=== PATIENT | female | born 1965 | race African-American/Black ===

== ENCOUNTER 2017-04-16 18:45 | Observation (INO) | payer BC ==
[2017-04-16 19:10] LABS: Hematocrit 39.5 % (36.0-47.0); Mean Platelet Volume 7.5 fL (7.4-10.4); Red Blood Cell (RBC) Count 4.79 mill/uL (4.20-5.40); White Blood Cell (WBC) Count 4.8 thou/uL (4.8-10.8)
[2017-04-16 19:27] LABS: Hypochromia SLIGHT = 6-15 cells (100X) (0-5/hpf); Neutrophil 71 % (42-75)
[2017-04-16 19:33] LABS: ALT (SGPT) 17 U/L (8-55); AST (SGOT) 22 U/L (5-34); Alkaline Phosphatase 72 U/L (40-150); Anion Gap 11 mmol/L (10-20); BUN (Urea Nitrogen) 11 mg/dL (7.0-18.7); Calc. Creatinine Clearance 0 mL/min (70-130); Calcium 8.8 mg/dL (7.8-10.44); Carbon Dioxide 31 mmol/L (22-29); Chloride 102 mmol/L (98-107); Estimated GFR-MDRD Greater than 90; Globulin 3.8 g/dL (2.4-3.5); Protein, Total 7.7 g/dL (6.0-8.3)
[2017-04-16] MEDS ORDERED: Ondansetron HCl/PF 4 MG/2 ML Vial ONE (20:29)
[2017-04-16 21:22] LABS: Bilirubin Negative (Negative); Blood, Urine Negative (Negative); Glucose, Urine (Dipstick) Negative (Negative); Ketone, Urine Negative (Negative); Nitrite Negative (Negative); Protein, Urine (Dipstick) Negative (Neg-Trace)
[2017-04-16 21:23] LABS: Bacteria/HPF None Seen HPF (None Seen); Hyaline Casts/LPF 0-3 HYALINE CAST LPF (0-3 Hyaline); Squamous Epithelial 0-3 HPF (0-3); WBC/HPF 0-3 HPF (0-3)
[2017-04-16] MEDS ORDERED: Lidocaine 1% PF 5 ML VIAL ONE (23:45)
--- NOTE | 2017-04-16 23:56 | ULT ---
LEFT LOWER EXTREMITY VENOUS DOPPLER WITH SPECTRAL ANALYSIS AND COLOR FLOW EVALUATION: 04/16/17 HISTORY: Left lower extremity pain. History of rheumatoid arthritis and lupus. Patient's left knee is warm to touch, painful and swollen. FINDINGS: Easley scale, color flow, doppler evaluation, and spectral analysis of the left lower extremity venous structures is performed with 2D imaging. The left lower extremity common femoral, superficial femoral, popliteal, posterior tibial, most prox imal greater saphenous and profunda femoral veins are imaged. There is normal lumen compressibility, flow, and augmentation in the visualized deep venous structur es left lower extremity. There is a small curvilinear anechoic collection seen posterior to the knee measuring 3.4 cm x 1 cm x 2.7 cm. No flow is seen within this structure on color flow evaluation. This was not present on e prior study of 09/16/16. IMPRESSION: 1. No evidence of a DVT involving the visualized deep venous structures of the left lower extre mity. 2. Probable small Saeed's cyst posterior to the left knee. POS: [facility]
[2017-04-17] MEDS ORDERED: cefTRIAXone\\ROCEPHIN 2 GM VIAL ONE (00:43)
[2017-04-17 00:50] LABS: BF Reference Range Comment Note:
[2017-04-17 01:11] LABS: BF Color Yellow
[2017-04-17 01:12] LABS: RBC Count-Automated 22000 /cumm
[2017-04-17] MEDS ORDERED: Vancomycin HCl 1.5 GM in Sodium Chloride 0.9% 250 ML 300 ML IVPB SCH (01:45)
[2017-04-17 02:41] LABS: Number Cells Counted-Fluids 100
[2017-04-17] MEDS ORDERED: Ondansetron ODT 4 MG TAB SL PRN (03:40)
[2017-04-17] MEDS ORDERED: Ondansetron HCl/PF 4 MG/2 ML Vial IVP PRN (03:40)
[2017-04-17] MEDS ORDERED: D5 1/2 NS w/20 mEq KCL 1,000 ML IV SCH (03:45)
[2017-04-17 06:02] VITALS: BMI 24.2
[2017-04-17] MEDS ORDERED: FLU VACC QS2017-18 36 mo. & older 0.5 ML SYRINGE IM ONE (09:00)
[2017-04-17] MEDS ORDERED: Enoxaparin Sodium 40 MG/0.4 ML SYRINGE SC SCH ×2 (09:19→09:30)
[2017-04-17] MEDS ORDERED: Famotidine 20 MG TAB PO SCH ×2 (09:19→09:30)
[2017-04-17] MEDS ORDERED: LOSARTAN POTASSIUM 25 MG PO SCH (09:19)
[2017-04-17] MEDS ORDERED: Mag-Al 1200 mg/1200 mg/30 ML UDCUP PO PRN (09:19)
[2017-04-17] MEDS ORDERED: predniSONE 20 MG TAB PO SCH (09:19)
[2017-04-17] MEDS ORDERED: Dextrose 50% Abboject 50 ML SYRINGE SLOW IVP PRN (09:19)
[2017-04-17] MEDS ORDERED: Vancomycin HCl 1 GM in Premix Bag 1 BAG IVPB SCH ×3 (09:19→21:00)
[2017-04-17] MEDS ORDERED: HYDROcodone/Acetaminophen 5/325 mg Tablet PO PRN (09:19)
[2017-04-17] MEDS ORDERED: Hydroxychloroquine Sulfate 200 MG TAB PO SCH ×2 (09:19→09:30)
[2017-04-17] MEDS ORDERED: HumaLOG 300 UNITS/3 ML VIAL SC PRN ×2 (09:19)
[2017-04-17] MEDS ORDERED: Ondansetron ODT 4 MG TAB PO PRN (09:19)
[2017-04-17] MEDS ORDERED: Acetaminophen 325 MG TAB PO PRN (09:19)
[2017-04-17] MEDS ORDERED: Dextrose 5% in Water 1,000 ML IV PRN (09:19)
[2017-04-17] MEDS ORDERED: Fleet Enema 133 ML BOT PR PRN (09:19)
[2017-04-17] MEDS ORDERED: Losartan Potassium 25 MG TAB PO SCH (09:30)
[2017-04-17] MEDS ORDERED: predniSONE 5 MG TAB PO SCH (09:30)
[2017-04-17] MEDS: Piperacillin/Tazobactam 3.375 GM in Sodium Chloride 0.9% 100 ML IVPB SCH ×2 (11:35→18:23)
--- NOTE | 2017-04-17 11:38 | HP ---
PRIMARY CARE PHYSICIAN: Dr. Lynnette Cooper CHIEF COMPLAINT: Left knee pain. HISTORY OF PRESENT ILLNESS: Ms. Streeter is a pleasant 51-year-old female that has a history of hyperte nsion as well as systemic lupus. She also has had a left total knee replacement done in June. She says that she has always had a little bit of pain off and on since her total knee replacement, b ut day before yesterday it started hurting extremely bad. She said suddenly she could barely walk. She also had a high temperature both the day before yesterday and yesterday, she says it was high a s 103. She also says that the pain went from her knee all the way down to her foot, she says it was swollen and hot. She was also feeling a bit nauseated. Because of the high fever as well as the p ain, she came to the emergency room for evaluation. Due to her immunosuppression from her lupus she is being admitted for concern for a septic knee joint. The patient denies any trauma to the knee, but again says she recently had a total knee replacement performed and she says it has never hurt to this degree. She does say that she had seen Dr. Desouza a few months ago where he sindi some fluid off of the knee, but says at that time, there was no infection. REVIEW OF SYSTEMS: CONSTITUTIONAL: She has had subjective fevers, no chills, no night sweats, no weight loss. HEENT: She denies any headaches, no dizziness, no visual changes, no sore throat, rhinorrhea, neck pain, no adenopathy. PULMONARY: No hemoptysis, no cough, no wheezing. CARDIOVASCULAR: She denies any chest pain, no shortness of breath, no PND, no orthopnea. GASTROINTESTINAL: No abdominal pain. She has had some nausea, but no vomiting, no change in bowels . GENITOURINARY: No urinary frequency, hematuria, no hesitancy. NEUROLOGIC: No focal weakness, numbness, no seizures. PSYCHIATRIC: No symptoms of anxiety or depression. SKIN AND INTEGUMENT: No skin changes. No rash. 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 She h as a chronic microcytic anemia, hypertension, gastroparesis, chronic low back pain, anxiety, depress ion as well as steroid-induced diabetes mellitus. PAST SURGICAL HISTORY: She has had a tonsillectomy, hysterectomy, tooth extraction, bilateral shoul errol replacements as well as bilateral hip replacement surgeries, left total knee replacement, laparo scopic salpingo-oophorectomy on the right. Cardiac catheterization and a colonoscopy. ALLERGIES: No known drug allergies. FAMILY HISTORY: Significant for hypertension. SOCIAL HISTORY: She is . She has 3 children. She is a nonsmoker, nondrinker. CURRENT MEDICATIONS: Amlodipine 5 mg daily, BuSpar 10 mg twice a day, prednisone 5 mg daily, [place] 10/325 mg 1-2 tablets q.8 h. as needed, pantoprazole 40 mg daily, losartan 25 mg daily, ibuprofen 80 0 mg twice a day as needed, hydroxychloroquine 200 mg twice a day, sertraline 100 mg daily. PHYSICAL EXAMINATION: GENERAL: She is alert and oriented. She appears to be in no acute distress. VITAL SIGNS: Blood pressure was 136/70, heart rate 85, respiratory rate of 18, temperature is 99.9. HEENT: Her pupils are equal, round, and reactive. Extraocular muscles are intact. Sclerae are ani cteric. Throat no erythema, no exudates. NECK: No adenopathy, no bruits. LUNGS: Clear. There is no wheezing, no rales. CARDIOVASCULAR: She has a normal S1 and S2. I did not appreciate an S3 or S4. No murmurs, clicks or rubs. ABDOMEN: Soft, it is nontender, nondistended. Positive for bowel sounds. No rebound, no guarding. EXTREMITIES: She has got some significant swelling or an effusion in the left knee. It is positive for tubal and mildly warm, but there is no erythema. She has got 1+ edema in the lower extr emity. NEUROLOGICALLY: The exam is nonfocal. LABORATORY DATA: White blood cell count 4.8, hemoglobin 12.1, hematocrit is 39.5, platelet count 34 8. Sodium 140, potassium 3.6, chloride is 102, CO2 was 31, BUN of 11, creatinine 0.71, glucose is 8 6. Urinalysis was essentially negative. From the fluid from the knee, the color was yellow and haz y. There was 11,300 white blood cell count, 220,000 RBCs, neutrophils 76%. ASSESSMENT AND PLAN: 1. This is a 51-year-old female that presents with a sudden onset of severe pain in the right knee. There is some concern for septic arthritis. She does have significant white cells in her synovial fluid, but no mention of any bacteria. This could either be from infection or from the lupus. She was admitted and placed on IV antibiotics until the final culture results can be obtained. We will also consult Orthopedic Surgery for their recommendations as well. Should it be determined that dale frances in fact has a septic joint, then ID consultation would be ideal to help determine the antibiotic a nd length of treatment. 2. Given her history of steroid-induced diabetes, we will place her on a sliding scale insulin. 3. For systemic lupus we will continue her usual home medications.
[2017-04-17] MEDS: HYDROcodone/Acetaminophen 10/325 mg Tablet PO PRN (12:34)
[2017-04-17] MEDS: Vancomycin HCl 1 GM in Premix Bag 1 BAG IVPB SCH (12:35)
[2017-04-17] MEDS: Ondansetron HCl/PF 4 MG/2 ML Vial IVP PRN (13:06)
[2017-04-17] MEDS: Hydroxychloroquine Sulfate 200 MG TAB PO SCH (20:27)
[2017-04-17] MEDS: Famotidine 20 MG TAB PO SCH (20:27)
[2017-04-18] MEDS: Piperacillin/Tazobactam 3.375 GM in Sodium Chloride 0.9% 100 ML IVPB SCH ×5 (00:10→18:09)
[2017-04-18] MEDS: Ondansetron HCl/PF 4 MG/2 ML Vial IVP PRN (00:15)
[2017-04-18] MEDS: Vancomycin HCl 1 GM in Premix Bag 1 BAG IVPB SCH ×2 (02:25→14:27)
[2017-04-18] MEDS: HYDROcodone/Acetaminophen 10/325 mg Tablet PO PRN ×3 (02:29→17:09)
[2017-04-18 05:52] LABS: Anion Gap 12 mmol/L (10-20); BUN (Urea Nitrogen) 9 mg/dL (7.0-18.7); Calc. Creatinine Clearance 110 mL/min (70-130); Calcium 8.7 mg/dL (7.8-10.44); Carbon Dioxide 26 mmol/L (22-29); Chloride 105 mmol/L (98-107); Estimated GFR-MDRD Greater than 90
[2017-04-18 06:26] LABS: Band 1 % (5-11); Hematocrit 35.1 % (36.0-47.0); Mean Platelet Volume 8.6 fL (7.4-10.4); Neutrophil 56 % (42-75); Red Blood Cell (RBC) Count 4.25 mill/uL (4.20-5.40); White Blood Cell (WBC) Count 3.2 thou/uL (4.8-10.8)
--- NOTE | 2017-04-18 07:43 | PDOC.PN ---
- Subjective Encounter Start Date: 04/18/17 Encounter Start Time: 07:41 Ms. Streeter says the pain in her knee is a little better. She had some nausea last night. otherwise ok. - Objective Resuscitation Status: Resuscitation Status FULL:Full Resuscitation MAR Reviewed: Yes Vital Signs & Weight: Vital Signs (12 hours) Temp Pulse Resp BP Pulse Ox 04/18/17 04:00 97.5 F L 52 L 16 130/71 98 04/18/17 00:00 97.9 F 66 18 120/78 100 04/17/17 20:20 98.6 F 80 20 04/17/17 20:00 98.6 F 80 20 115/75 97 Weight Weight 164 lb 3.2 oz I&O: 04/17/17 04/18/17 04/19/17 06:59 06:59 06:59 Intake Total 200 1 Balance 200 1 Result Diagrams: 04/18/17 04:23 04/18/17 04:23 Additional Labs: Accuchecks 04/18/17 04/17/17 04/17/17 06:25 21:14 15:31 POC Glucose 87 116 H 96 04/17/17 10:54 POC Glucose 77 Phys Exam - Physical Examination HEENT: PERRLA Respiratory: no wheezing, no rales, no rhonchi, clear to auscultation bilateral Cardiovascular: RRR, no significant murmur, no rub Gastrointestinal: soft, non-tender, positive bowel sounds + mild effusion in left kness, mild warmth, Neurological: non-focal Dx/Plan (1) Cellulitis of left knee Code(s): L03.116 - CELLULITIS OF LEFT LOWER LIMB Status: Acute (2) Anxiety and depression Code(s): F41.9 - ANXIETY DISORDER, UNSPECIFIED; F32.9 - MAJOR DEPRESSIVE DISORDER, SINGLE EPISODE, UNSPECIFIED Status: Chronic (3) Gastroparesis Code(s): K31.84 - GASTROPARESIS Status: Chronic (4) Hypertension Code(s): I10 - ESSENTIAL (PRIMARY) HYPERTENSION Status: Chronic (5) Systemic lupus erythematosus Code(s): M32.9 - SYSTEMIC LUPUS ERYTHEMATOSUS, UNSPECIFIED Status: Chronic - Plan * Knee Effusion- knee clinically appears much improved, there is not much redness, and swelling has receded. Cultures are negative so far. * Continue Antibiotics , and await opinion from Orthopedics * HTN - blood pressure is stable * Coag Neg Staph in blood culture is is contaminant * SLE- stable.
[2017-04-18] MEDS: Losartan Potassium 25 MG TAB PO SCH (08:34)
[2017-04-18] MEDS: Famotidine 20 MG TAB PO SCH ×2 (08:35→20:36)
[2017-04-18] MEDS: Enoxaparin Sodium 40 MG/0.4 ML SYRINGE SC SCH (08:35)
[2017-04-18] MEDS: predniSONE 5 MG TAB PO SCH (08:35)
[2017-04-18] MEDS: Hydroxychloroquine Sulfate 200 MG TAB PO SCH ×2 (08:35→20:36)
[2017-04-18] MEDS ORDERED: fentaNYL 75 mcg/hour Patch TD SCH (16:00)
--- NOTE | 2017-04-18 17:10 | CON ---
DATE OF CONSULTATION: 04/18/2017 CHIEF COMPLAINT: Left knee pain. HISTORY OF PRESENT ILLNESS: This is a 51-year-old female admitted 2 days ago for increasing discomf ort in her left knee and lower extremity. She denies any specific injury or change in activity, has had left total knee arthroplasty for avascular necrosis due to her chronic lupus. She has been hav ing intermittent problems with the left knee. She had an aspiration back in February of this year whi ch was negative for infection or abnormal fluid. She has been relatively slow with therapy on the k nee. She has also been having discomfort extending into the foot. She feels it is more consistent with neuropathy symptoms. Not related activity or ambulation. She does report some elevated temper atures prior to this admission. PAST MEDICAL HISTORY: Documented. She has had multiple areas of avascular necrosis and joint repla cement surgery on hips, knees, and shoulders. She has chronic anemia, hypertension, and lupus along with steroid-induced diabetes. PAST SURGICAL HISTORY: Surgical history is documented. ALLERGIES: She has no known allergies. MEDICATIONS: Listed, she has recently started on arthritis medication by her carbide tool maker, Dr. Christiano baca, she is also on prednisone daily. PHYSICAL EXAMINATION EXTREMITIES: Left lower extremity, she has minimal swelling. There is minimal effusion. Incision is well healed. Mild warmth. She has active flexion to 110 degrees. She has full extension, good stability, alignment, and normal tracking. She has diffuse tenderness around the anterior knee. SKIN: Her skin is otherwise clear. NEUROLOGIC: Intact. VASCULAR: Intact. LABORATORY AND X-RAY FINDINGS: Radiographs not obtained. Laboratory shows fairly benign looking kn ee aspirated with 11,000 white cells, 220,000 red with low normal WBC and normal platelets, sediment ation rate was not done. C-reactive protein is elevated. IMPRESSION AND PLAN: The patient is well known to me with persistent left knee pain, intermittent e pisodes of increasing discomfort without evidence of sepsis. This most recent admission with concer n about septic arthritis. The patient has chronic immunosuppression and may not have significant in flammatory markers; however, she has been afebrile and cultures are from the knee aspirate remain ne gative. We will allow her to mobilize as tolerated. We would await final results of her knee cultu re and if negative, we would discontinue IV antibiotic therapy. We will follow her outpatient in th e next 5-7 days for followup. She can mobilize as tolerated.
[2017-04-18] MEDS: Sulfameth/Trimethoprim DS 800-160mg TAB PO SCH (20:36)
[2017-04-18] MEDS: busPIRone HCl 10 MG TAB PO SCH (20:36)
[2017-04-18 21:00] LABS: Vancomycin, Trough 20.9 ug/mL
[2017-04-19] MEDS: Piperacillin/Tazobactam 3.375 GM in Sodium Chloride 0.9% 100 ML IVPB SCH ×3 (00:07→12:06)
[2017-04-19] MEDS: HYDROcodone/Acetaminophen 10/325 mg Tablet PO PRN (01:17)
[2017-04-19] MEDS: Vancomycin HCl 1 GM in Premix Bag 1 BAG IVPB SCH (01:17)
[2017-04-19] MEDS: predniSONE 5 MG TAB PO SCH (09:31)
[2017-04-19] MEDS: busPIRone HCl 10 MG TAB PO SCH (09:31)
[2017-04-19] MEDS: Losartan Potassium 25 MG TAB PO SCH (09:31)
[2017-04-19] MEDS: Hydroxychloroquine Sulfate 200 MG TAB PO SCH (09:31)
[2017-04-19] MEDS: Sulfameth/Trimethoprim DS 800-160mg TAB PO SCH (09:31)
[2017-04-19] MEDS: Famotidine 20 MG TAB PO SCH (09:32)
[2017-04-19] MEDS: Enoxaparin Sodium 40 MG/0.4 ML SYRINGE SC SCH (09:32)
--- NOTE | 2017-04-19 11:22 | PDOC.PN ---
- Subjective Encounter Start Date: 04/19/17 Encounter Start Time: 11:20 Ms. Streeter is overall feeling better. she says the pain in her knee is better, but it still hurts and radiates to her foot. - Objective Resuscitation Status: Resuscitation Status FULL:Full Resuscitation MAR Reviewed: Yes Vital Signs & Weight: Vital Signs (12 hours) Temp Pulse Resp BP Pulse Ox 04/19/17 07:40 98.5 F 64 18 113/71 98 04/19/17 03:13 98.1 F 61 12 115/73 97 Weight Weight 164 lb 3.2 oz I&O: 04/18/17 04/19/17 04/20/17 06:59 06:59 06:59 Intake Total 1 2700 Balance 1 2700 Result Diagrams: 04/18/17 04:23 04/18/17 04:23 Additional Labs: Accuchecks 04/19/17 04/18/17 05:20 15:31 POC Glucose 101 132 H Phys Exam - Physical Examination HEENT: PERRLA Respiratory: no wheezing, no rales, no rhonchi, clear to auscultation bilateral Cardiovascular: RRR, no significant murmur Gastrointestinal: soft, non-tender, positive bowel sounds + mild effusion in the left knee, no redness. minimal warmth Dx/Plan (1) Cellulitis of left knee Code(s): L03.116 - CELLULITIS OF LEFT LOWER LIMB Status: Acute (2) Anxiety and depression Code(s): F41.9 - ANXIETY DISORDER, UNSPECIFIED; F32.9 - MAJOR DEPRESSIVE DISORDER, SINGLE EPISODE, UNSPECIFIED Status: Chronic (3) Gastroparesis Code(s): K31.84 - GASTROPARESIS Status: Chronic (4) Hypertension Code(s): I10 - ESSENTIAL (PRIMARY) HYPERTENSION Status: Chronic (5) Systemic lupus erythematosus Code(s): M32.9 - SYSTEMIC LUPUS ERYTHEMATOSUS, UNSPECIFIED Status: Chronic - Plan * Knee pain and swelling- ? etiology- septic joint is unlikely * Her cultures are now negative X 48 hours * Stale for discharge home without antibiotics * Follow-up with Dr. Desouza in 5-7 days.
[2017-04-19] MEDS: Ondansetron HCl/PF 4 MG/2 ML Vial IVP PRN (12:13)
[2017-04-19 12:32] VITALS: BP 128/81; TEMP 98.4
--- NOTE | 2017-04-19 20:50 | DIS ---
PRIMARY CARE PHYSICIAN: Lynnette Cooper MD DATE OF ADMISSION: 04/17/2017 DATE OF DISCHARGE: 04/19/2017 DISCHARGE DISPOSITION: Home. PRIMARY DISCHARGE DIAGNOSES: 1. Left knee effusion, unknown etiology. 2. Systemic lupus erythematosus. 3. History of avascular necrosis of both shoulders and both hips. 4. Chronic microcytic anemia. 5. Hypertension. 6. Anxiety. 7. Steroid-induced diabetes mellitus. 8. Depression. DISCHARGE MEDICATIONS: These are the same as that on admission and include prednisone 5 mg daily, f entanyl 75 mg q.3 hours, BuSpar 10 mg twice a day, amlodipine 5 mg twice daily, Bactrim-DS 1 tablet on Thursday, Thursday, and Thursday, Zoloft 100 mg daily, promethazine 25 mg q.6 hours as needed, Diony nix 40 mg daily, Movantik 25 mg daily, Cozaar 25 mg daily, ibuprofen 800 mg twice a day, Plaquenil 2 00 mg q.12 hours and [place] 10/325 q.8 hours as needed. CODE STATUS: FULL CODE. ALLERGIES: No known drug allergies. HOSPITAL COURSE: Ms. Streeter is a pleasant 51-year-old female that presented to the emergency room com plaining of high fever as well as severe pain in her left knee. She has had problems with this left knee ever since she had a knee replacement surgery. She also had fevers off and on. She was instr ucted to come to the emergency room anytime she had an elevated temperature, which she did. Because of the swelling in knee, there was concern for possible septic joint. This was aspirated and the f luid was sent for Gram stain and culture. The Gram stain was negative and culture results were nega tive after 48 hours. She was also seen by Orthopedic Surgery, who felt that the knee clinically did not appear to be septic. The patient's temperature defervesced and she was symptomatically much im proved and as such she will be discharged home without any antibiotics and to continue her previous home medications. I told her to follow up with the testing that Dr. Herron has been doing with re gards to the fever and she may also need to see Dr. Muhammad as an outpatient with Infectious Disease, if she continues to have a temperature elevation off and on. She voiced understanding and as such i s being discharged home with follow up with Dr. Desouza in 5-7 days and also with Dr. Cooper in 1-2 [facility].
== END 2017-04-19 14:26 | disposition home or self-care (01) ==
LOC: ERS 18:45 → SURG A 04-17 03:28
PROVIDERS: ADMIT Family Medicine; ATTEND Family Medicine
DX: M25.462 Effusion, left knee (principal); M32.9 Systemic lupus erythematosus, unspecified; D64.9 Anemia, unspecified; M87.9 Osteonecrosis, unspecified; I10 Essential (primary) hypertension; F32.9 Major depressive disorder, single episode, unspecified; F41.9 Anxiety disorder, unspecified; E09.9 Drug or chemical induced diabetes mellitus without complications; Z96.643 Presence of artificial hip joint, bilateral; Z96.653 Presence of artificial knee joint, bilateral; Z96.612 Presence of left artificial shoulder joint; Z96.611 Presence of right artificial shoulder joint; Z79.899 Other long term (current) drug therapy
CPT/HCPCS: 20610; 36415; 36416; 80048; 80053; 80202; 81003; 81015; 82945; 84157; 85025; 85060; 85652; 86140; 87040; 87070; 87149; 87205; 89051; 89060; 96361; 96365; 96366; 96367; 96372; 96375; 96376; G0378; J0696; J1650; J2001; J2270; J2405; J2543; J3370; J7050

== ENCOUNTER 2017-06-24 16:04 | Emergency (ER) | payer BC ==
[2017-06-24] MEDS ORDERED: Ketorolac Tromethamine 60 MG/2 ML VIAL ONE (19:12)
== END 2017-06-24 19:49 | disposition home or self-care (01) ==
LOC: ERS 16:04
DX: J11.1 Influenza due to unidentified influenza virus with other respiratory manifestations (principal); I10 Essential (primary) hypertension; E11.9 Type 2 diabetes mellitus without complications; M10.9 Gout, unspecified; F32.9 Major depressive disorder, single episode, unspecified; Z79.899 Other long term (current) drug therapy
CPT/HCPCS: 96372; J1885

== ENCOUNTER 2017-06-29 11:33 | Emergency (ER) | payer BC ==
[2017-06-29 13:51] LABS: Bilirubin Negative (Negative); Blood, Urine Negative (Negative); Glucose, Urine (Dipstick) Negative (Negative); Ketone, Urine Negative (Negative); Nitrite Positive (Negative); Protein, Urine (Dipstick) Trace mg/dL (Neg-Trace)
[2017-06-29 13:53] LABS: Bacteria/HPF None Seen HPF (None Seen); Hyaline Casts/LPF 0-3 HYALINE CAST LPF (0-3 Hyaline); Squamous Epithelial None Seen HPF (0-3); WBC/HPF 0-3 HPF (0-3)
[2017-06-29 13:55] LABS: RBC/HPF None Seen HPF (0-3)
[2017-06-29 14:10] LABS: Hematocrit 39.6 % (36.0-47.0); Mean Platelet Volume 8.3 fL (7.4-10.4)
[2017-06-29 14:21] LABS: ALT (SGPT) 15 U/L (8-55); AST (SGOT) 25 U/L (5-34); Alkaline Phosphatase 55 U/L (40-150); Anion Gap 12 mmol/L (10-20); BUN (Urea Nitrogen) 8 mg/dL (7.0-18.7); Bilirubin, Total 0.6 mg/dL (0.2-1.2); Calc. Creatinine Clearance 0 mL/min (70-130); Calcium 9.6 mg/dL (7.8-10.44); Carbon Dioxide 27 mmol/L (22-29); Chloride 105 mmol/L (98-107); Estimated GFR-MDRD Greater than 90; Globulin 3.5 g/dL (2.4-3.5); Protein, Total 7.5 g/dL (6.0-8.3)
[2017-06-29 14:34] LABS: Band 2 % (5-11); Hypochromia SLIGHT = 6-15 cells (100X) (0-5/hpf); Neutrophil 80 % (42-75)
--- NOTE | 2017-06-29 15:46 | RAD ---
2 VIEWS CHEST: Date: 06/29/17 HISTORY: Rib pain. No trauma. FINDINGS: Comparison made to previous exam from 12/09/16. PA and lateral views of chest demonstrate bilateral shoulder arthroplasties. The lungs are well aerat ed. No evidence of active intrathoracic disease is seen. No evidence of effusions, pneumonia, or pneu mothorax seen. IMPRESSION: Normal 2 views chest. POS: [facility]
== END 2017-06-29 15:22 | disposition home or self-care (01) ==
LOC: ERS 11:33
DX: N39.0 Urinary tract infection, site not specified (principal); M32.9 Systemic lupus erythematosus, unspecified; I10 Essential (primary) hypertension; E11.9 Type 2 diabetes mellitus without complications; F32.9 Major depressive disorder, single episode, unspecified; Z79.899 Other long term (current) drug therapy
CPT/HCPCS: 36415; 71020; 80053; 81003; 81015; 85025

== ENCOUNTER 2017-07-28 16:34 | Emergency (ER) | payer BC ==
[2017-07-28 17:13] LABS: Hemoglobin 11.5 g/dL (12.0-16.0); Mean Corpuscular Hemoglobin 24.3 pg (27.0-31.0); Mean Corpuscular Volume 80.9 fl (81.0-99.0); Mean Platelet Volume 8.1 fL (7.4-10.4); Platelet Count 369 thou/uL (130-400); RBC Distribution Width 12.4 % (11.5-14.5); Red Blood Cell (RBC) Count 4.75 mill/uL (4.20-5.40); White Blood Cell (WBC) Count 9.1 thou/uL (4.8-10.8)
[2017-07-28 17:23] LABS: #Eosinphils 0.2 thou/uL (0.0-0.7); #Lymphocytes 1.5 thou/uL (1.20-3.40); #Neutrophils 6.4 thou/uL (1.40-6.50); %Basophils 0.5 % (0.0-1.0); %Eosinophils 1.7 % (0.0-10.0); %Lymphocytes 16.3 % (21.0-51.0); %Monocytes 10.7 % (0.0-10.0); %Neutrophils 70.8 % (42.0-75.0); MDiff Complete? YES; Ovalocytes SLIGHT = 2-5 cells (100X) (0-1/hpf); PLT Morphology Comment Appears Adequate
--- NOTE | 2017-07-28 17:31 | RAD ---
RADIOGRAPH CHEST 2 VIEWS: Date: 07/28/17 Time: 5:53 p.m. HISTORY: 51-year-old female with cough, chest pain, and fever. COMPARISON: 06/29/17 FINDINGS: There is a new finding of a patchy, ill-defined, somewhat faint pulmonary opacity at the left mid jg g zone. There has been no other interval change. No pleural effusion. Cardiac size at the upper limit s of normal. There is probably no true cardiomegaly. There was true cardiomegaly on the CT angiogram of 12/09/16, but that has apparently resolved. There is no pulmonary edema. The right lung is clear. No pleural effusion or pneumothorax. No pulmonary edema. Bilateral metallic humeral head prostheses are again noted. IMPRESSION: 1. New infiltrate-like density in the left mid lung zone. In the setting of the given history, t his is evidence for left sided pneumonia. 2. Recommend serial followup chest radiographs until complete clearance, beginning in one week. RIMA [] POS: [facility]
[2017-07-28 17:33] LABS: ALT (SGPT) 16 U/L (8-55); AST (SGOT) 22 U/L (5-34); Albumin 4.1 g/dL (3.5-5.0); Alkaline Phosphatase 60 U/L (40-150); Anion Gap 16 mmol/L (10-20); BUN (Urea Nitrogen) 11 mg/dL (7.0-18.7); Bilirubin, Total 0.7 mg/dL (0.2-1.2); Calc. Creatinine Clearance 0 mL/min (70-130); Calcium 9.3 mg/dL (7.8-10.44); Carbon Dioxide 25 mmol/L (22-29); Chloride 104 mmol/L (98-107); Estimated GFR-MDRD Greater than 90; Globulin 3.7 g/dL (2.4-3.5); Glucose 64 mg/dL (70-105); Potassium 3.4 mmol/L (3.5-5.1); Protein, Total 7.8 g/dL (6.0-8.3); Sodium 142 mmol/L (136-145)
[2017-07-28 17:37] LABS: Troponin I Less than 0.010 ng/mL (< 0.028)
[2017-07-28 17:46] LABS: CKMB 21.5 ng/mL (0-6.6)
[2017-07-28 18:50] LABS: Bilirubin Negative (Negative); Blood, Urine Negative (Negative); Clarity CLEAR (Clear); Glucose, Urine (Dipstick) Negative (Negative); Leukocyte Negative (Negative); Nitrite Negative (Negative); Protein, Urine (Dipstick) 30 mg/dL (Neg-Trace)
[2017-07-28 18:52] LABS: Bacteria/HPF None Seen HPF (None Seen); Hyaline Casts/LPF 0-3 HYALINE CAST LPF (0-3 Hyaline); Pathc Cast-AUWi Flag 0.13 (0-2.49); Squamous Epithelial 0-3 HPF (0-3); WBC/HPF 0-3 HPF (0-3)
[2017-07-28 18:54] LABS: RBC/HPF 0-3 HPF (0-3)
[2017-07-28] MEDS ORDERED: Ondansetron ODT 4 MG TAB ONE (19:19)
[2017-07-28] MEDS ORDERED: Doxycycline 100 MG CAP PO SCH (19:30)
== END 2017-07-28 20:39 | disposition home or self-care (01) ==
LOC: ERS 16:34
DX: J18.9 Pneumonia, unspecified organism (principal); I10 Essential (primary) hypertension; M10.9 Gout, unspecified; E11.9 Type 2 diabetes mellitus without complications; F32.9 Major depressive disorder, single episode, unspecified; Z79.899 Other long term (current) drug therapy
CPT/HCPCS: 36415; 71046; 80053; 81003; 81015; 82553; 83605; 84484; 85025; 87081; 87430; Q0162

== ENCOUNTER 2017-08-20 14:51 | Emergency (ER) | payer BC ==
[2017-08-20 15:23] LABS: #Eosinphils 0.1 thou/uL (0.0-0.7); #Lymphocytes 1.1 thou/uL (1.20-3.40); #Monocytes 0.6 thou/uL (0.11-0.59); #Neutrophils 2.3 thou/uL (1.40-6.50); %Basophils 0.4 % (0.0-1.0); %Eosinophils 3.4 % (0.0-10.0); %Lymphocytes 26.9 % (21.0-51.0); %Neutrophils 55.3 % (42.0-75.0); Hemoglobin 12.2 g/dL (12.0-16.0); Mean Corpuscular HGB CONC 31.4 g/dL (32.0-36.0); Mean Corpuscular Hemoglobin 25.2 pg (27.0-31.0); Mean Corpuscular Volume 80.3 fl (81.0-99.0); Mean Platelet Volume 8.3 fL (7.4-10.4); Platelet Count 308 thou/uL (130-400); RBC Distribution Width 13.4 % (11.5-14.5); Red Blood Cell (RBC) Count 4.84 mill/uL (4.20-5.40); White Blood Cell (WBC) Count 4.2 thou/uL (4.8-10.8)
--- NOTE | 2017-08-20 15:39 | RAD ---
CHEST TWO VIEWS: History: Chest pain. Comparison: 07-28-17 FINDINGS: Cardiac silhouette and pulmonary vasculature are unremarkable. Mediastinum is midline. Lungs remain h yperinflated. There is no confluent airspace consolidation, pneumothorax, or pleural fluid evident. Calcified granulomata are consistent with healed granulomatous disease. flare man leads overlie the chest. IMPRESSION: 1. COPD. Chronic type findings are stable. POS: [facility]
[2017-08-20 15:42] LABS: Anion Gap 10 mmol/L (10-20); BUN (Urea Nitrogen) 12 mg/dL (9.8-20.1); Calc. Creatinine Clearance 0 mL/min (70-130); Calcium 9.3 mg/dL (7.8-10.44); Carbon Dioxide 30 mmol/L (22-29); Chloride 104 mmol/L (98-107); Estimated GFR-MDRD Greater than 90; Glucose 83 mg/dL (70-105); Potassium 3.4 mmol/L (3.5-5.1); Sodium 141 mmol/L (136-145)
[2017-08-20 15:48] LABS: Troponin I Less than 0.010 ng/mL (< 0.028)
[2017-08-20 15:53] LABS: CKMB 17.7 ng/mL (0-6.6)
--- NOTE | 2017-08-20 16:43 | CT ---
CT ARTERIOGRAM CHEST WITH IV CONTRAST AND 3D MIP IMAGING. HISTORY: Chest pain. Dyspnea. COMPARISON: 12/09/16 FINDINGS: There is good contrast opacification of the pulmonary arteries and thoracic aorta with bovine origin of the great vessels. Nonenlarged, reactive appearing lymph nodes are scattered about the mediastinum and each axilla. No pleural fluid, pneumothorax or mediastinal adenopathy are evident. IMPRESSION: No CT evidence of pulmonary embolus. POS: [facility]
[2017-08-20] MEDS ORDERED: ISOVUE-370 76%-LOCM 1 ML ONE (17:09)
--- NOTE | 2017-09-12 19:19 | EKG ---
Test Reason : CP Blood Pressure : / mmHG Vent. Rate : 068 BPM Atrial Rate : 068 BPM P-R Int : 148 ms QRS Dur : 086 ms QT Int : 404 ms P-R-T Axes : 059 -11 004 degrees QTc Int : 429 ms Normal sinus rhythm Possible Left atrial enlargement Left ventricular hypertrophy Abnormal ECG Confirmed by PEACE OLIVA ([id number]), associate entertainment editor NEHEMIAS OLVERA ([id number]) on 09/12/2017 7:19:13 PM Referred By: Confirmed By:PEACE OLIVA
== END 2017-08-20 16:49 | disposition home or self-care (01) ==
LOC: ERS 14:51
DX: R07.89 Other chest pain (principal); M32.9 Systemic lupus erythematosus, unspecified; I10 Essential (primary) hypertension; E11.43 Type 2 diabetes mellitus with diabetic autonomic (poly)neuropathy; K31.84 Gastroparesis; M10.9 Gout, unspecified; F32.9 Major depressive disorder, single episode, unspecified; Z79.52 Long term (current) use of systemic steroids; Z79.899 Other long term (current) drug therapy
CPT/HCPCS: 71046; 71275; 80048; 82553; 84484; 85025; 93005

== ENCOUNTER 2017-10-26 12:15 | Inpatient (IN) | payer MEDICARE, BC ==
[2017-10-26 12:52] LABS: Bilirubin Negative (Negative); Blood, Urine Trace (Negative); Clarity CLEAR (Clear); Glucose, Urine (Dipstick) Negative (Negative); Protein, Urine (Dipstick) Trace mg/dL (Neg-Trace); Specific Gravity, Urine 1.026 (1.002-1.036)
[2017-10-26 12:54] LABS: Bacteria/HPF None Seen HPF (None Seen); Hyaline Casts/LPF 0-3 HYALINE CAST LPF (0-3 Hyaline); Squamous Epithelial 0-3 HPF (0-3); WBC/HPF 21-50 HPF (0-3)
[2017-10-26 13:01] LABS: Nitrite Unable to Interpret (Negative)
[2017-10-26 13:06] LABS: Leukocyte Trace (Negative); pH, Urine 6.5 (5.0-9.0)
[2017-10-26 14:15] LABS: #Eosinphils 0.1 thou/uL (0.0-0.7); #Lymphocytes 0.9 thou/uL (1.20-3.40); #Monocytes 0.4 thou/uL (0.11-0.59); #Neutrophils 2.2 thou/uL (1.40-6.50); %Basophils 0.8 % (0.0-1.0); %Eosinophils 2.1 % (0.0-10.0); %Lymphocytes 23.9 % (21.0-51.0); %Monocytes 10.6 % (0.0-10.0); %Neutrophils 62.5 % (42.0-75.0); Hemoglobin 13.3 g/dL (12.0-16.0); Mean Corpuscular HGB CONC 31.6 g/dL (32.0-36.0); Mean Corpuscular Hemoglobin 25.2 pg (27.0-31.0); Mean Corpuscular Volume 79.6 fl (81.0-99.0); Mean Platelet Volume 8.6 fL (7.4-10.4); Platelet Count 246 thou/uL (130-400); RBC Distribution Width 13.4 % (11.5-14.5); White Blood Cell (WBC) Count 3.6 thou/uL (4.8-10.8)
[2017-10-26 14:38] LABS: ALT (SGPT) 22 U/L (8-55); AST (SGOT) 30 U/L (5-34); Albumin 4.1 g/dL (3.5-5.0); Alkaline Phosphatase 70 U/L (40-150); Anion Gap 9 mmol/L (10-20); BUN (Urea Nitrogen) 11 mg/dL (9.8-20.1); Bilirubin, Total 0.7 mg/dL (0.2-1.2); Calc. Creatinine Clearance 0 mL/min (70-130); Calcium 9.6 mg/dL (7.8-10.44); Carbon Dioxide 29 mmol/L (22-29); Chloride 106 mmol/L (98-107); Estimated GFR-MDRD Greater than 90; Globulin 3.8 g/dL (2.4-3.5); Glucose 99 mg/dL (70-105); Potassium 4.2 mmol/L (3.5-5.1); Protein, Total 7.9 g/dL (6.0-8.3); Sodium 140 mmol/L (136-145)
[2017-10-26] MEDS ORDERED: ISOVUE-370 76%-LOCM 1 ML ONE (14:38)
[2017-10-26] MEDS ORDERED: Morphine 4 MG/ML VIAL ONE (17:02)
--- NOTE | 2017-10-26 17:15 | CT ---
CT ABDOMEN AND PELVIS WITH CONTRAST; HISTORY: Abdominal pain. COMPARISON: CT abdomen and pelvis from 02/15/2017. FINDINGS: Mild atelectasis in the left lung base. No pericardial effusion. The liver and gallbladder are normal. The aortoiliac contour is nonaneurysmal. Mild diverticular disease of the sigmoid colon without active inflammation. Small fat-containing periumbilical hernia. The appendix is visualized and is normal. There are mildly prominent right common iliac lymph nodes, measuring up to 7 mm in short axis. Small left common and external lymph nodes are present. There are bulky bilateral external iliac lymph nodes. Bilateral hip arthroplasties are present. Mild levoscoliosis of the lumbar spine. No hydronephrosis. IMPRESSION: 1. No acute inflammatory process within the abdomen or pelvis. 2. Mildly enlarged, bulky external iliac lymph nodes, as well as mildly prominent common iliac lymph nodes. Thee appear to have increased in size from the 2015 examination. Low grade lymphomatous pro cess is within the realm of possibility. Workup is recommended. POS: [facility]
[2017-10-26] MEDS ORDERED: Sodium Chloride 0.9% 1,000 ML IV SCH (18:45)
[2017-10-26] MEDS: Sodium Chloride 0.9% 1,000 ML IV SCH (19:00)
[2017-10-26] MEDS ORDERED: Promethazine 25 MG TAB PO PRN (19:08)
[2017-10-26] MEDS ORDERED: HYDROcodone/Acetaminophen 5/325 mg Tablet PO PRN (19:08)
[2017-10-26] MEDS ORDERED: fentaNYL 75 mcg/hour Patch TD SCH (20:00)
[2017-10-26] MEDS: Amlodipine 5 MG TAB PO SCH (20:17)
[2017-10-26] MEDS: Hydroxychloroquine Sulfate 200 MG TAB PO SCH (20:17)
[2017-10-26] MEDS: busPIRone HCl 10 MG TAB PO SCH (20:17)
[2017-10-26] MEDS: Docusate 100 MG CAP PO SCH (20:17)
[2017-10-26] MEDS: Famotidine 20 MG TAB PO SCH (20:20)
[2017-10-26] MEDS: HYDROcodone/Acetaminophen 10/325 mg Tablet PO PRN (20:25)
[2017-10-26] MEDS ORDERED: Hydroxychloroquine Sulfate 200 MG TAB PO SCH (21:00)
--- NOTE | 2017-10-26 21:40 | HP ---
DATE OF ADMISSION: 10/26/2017 CHIEF COMPLAINT: Multiple falls. HISTORY OF PRESENT ILLNESS: This is a 52-year-old -[place] female with a known history of marci pus and chronic pain issues with osteonecrosis of the both shoulders on the hips and she is on chroni c narcotic Duragesic patches. She has a history of chronic microcytic anemia, and history of hyperte nsion, which is well controlled. She also has a history of steroid-induced diabetes mellitus. The patient was in her usual state of health until yesterday. Since 2 days, she was falling a lot an d yesterday she woke up with severe pain in the back and was having urinary retention and was not abl e to pass urine or clear the bladder. She was unable to get up from the bed. So, she noted she was having incontinence of very smelly urine and she decided to come to the hospital for further evaluati on. When she presented to the ER, she had a low grade fever with chills and rigors and with severe b ackache. She had a CT of the abdomen in the ER did not show any evidence of any perinephric abscess. She had a sandrine evidence of UTI with normal white count. The patient is admitted for further evalu ation of her urinary tract infection. The patient denies having any nausea or vomiting. No diarrhea, no constipation. She has been asking for a lot of pain medications and her Duragesic patch has been changed today in [facility] ER and she has been getting [place] 10 mg at this time. The patient is very weak and very lethargic at this time. PAST MEDICAL HISTORY: 1. Systemic lupus. 2. Avascular necrosis of both the shoulders and the hips. 3. Chronic microcytic anemia. 4. Hypertension. 5. Gastroparesis. PAST SURGICAL HISTORY: History of tonsillectomy, history of hysterectomy, tooth extraction, bilatera l shoulder replacement as well as bilateral hip replacement surgeries in the past, left total knee re placement, laparoscopic surgery, salpingo-oophorectomy on the right, cardiac catheterization and also colonoscopies were done in the past. ALLERGIES: No known drug allergies. FAMILY HISTORY: Significant for high blood pressures. SOCIAL HISTORY: The patient is . She lives with her daughter and sometimes she also lives w ith her parents. She is a nonsmoker. No history of alcohol, no history of illicit drug use. REVIEW OF SYSTEMS: All 12 systems are reviewed with the patient thoroughly and found to be negative at this time. The following complete review of systems was negative, unless otherwise mentioned in t he HPI or below: Constitutional: Weight loss or gain, sense of well-being, ability to conduct usual activities, exercise tolerance. Skin/Breast: Rash, itching, changes in hair growth or loss, nail c hanges, breast lumps, tenderness, swelling, nipple discharge. Eyes: Vision, double vision, tearing, blind spots, pain. ENT/Mouth: Headaches (location, time of onset, duration, precipitating factors) , vertigo, lightheadedness, injury. Vision, double vision, tearing, blind spots, pain, nose bleeding, colds, obstruction, discharge, dental difficulties, gingival bleeding, dentures, neck stiffness, angela n, tenderness, masses in thyroid or other areas. Cardiovascular: Precordial pain, substernal distre ss, palpitations, syncope, dyspnea on exertion, orthopnea, nocturnal paroxysmal dyspnea, edema, cyano sis, hypertension, heart murmurs, varicosities, phlebitis, claudication. Respiratory: Pain, shortne ss of breath, wheezing, stridor, cough, hemoptysis, fever or night sweats. Gastrointestinal: Poor a ppetite, dysphagia, indigestion, abdominal pain, heartburn, eructation, nausea, vomiting, hematemesis , jaundice, constipation, or diarrhea, abnormal stools (memo-colored, tarry, bloody, greasy, foul sme lling), flatulence, hemorrhoids, recent changes in bowel habits. Genitourinary: Urgency, frequency, dysuria, nocturia, hematuria, polyuria, oliguria, unusual (or change in) color of urine, stones, hes itancy, change in size of stream, dribbling, acute retention or incontinence, libido, potency. Muscu loskeletal: Pain, swelling, redness or heat of muscles or joints, limitation, of motion, muscular we akness, atrophy, cramps. Neurologic/Psychiatric: Convulsions, paralyses, tremor, incoordination, pa resthesias, difficulties with memory of speech, sensory or motor disturbances, or muscular coordinati on (ataxia, tremor), emotional problems, anxiety, depression, previous psychiatric care, unusual perc eptions, hallucinations. Allergy/Immunologic: Skin rash, anemia, bleeding tendency, polydipsia, primitivo yuria, intolerance to heat or cold. PHYSICAL EXAMINATION: VITAL SIGNS: Blood pressures are 135/73, heart rate is 69, respirations 18, saturation 98%. GENERAL: The patient is seen, lying in the bed, very lethargic, otherwise oriented. HEENT: Atraumatic, normocephalic. PERRLA. Extraocular movements were intact. Oral mucosa is pink and moist. CARDIOVASCULAR: S1, S2 normal. No murmurs, no rubs, no gallops. LUNGS: Bilateral air entry was equal. No wheezing, no crackles. ABDOMEN: Soft, nontender. No guarding, no rebound tenderness. Bowel sounds normal. MUSCULOSKELETAL: No calf tenderness. No pedal edema. No joint tenderness, no joint swelling. SKIN: No cyanosis, no erythema, no rash, no pallor. MAGNETIC OBSERVER: Cranial nerve examination II-XII intact. No focal deficits were noted. LABORATORY DATA: Showed WBC is 3.6, hemoglobin is 13.3, hematocrit is 42.2, platelets are 246. Sodi um is 140, potassium is 4.2, chloride is 106, bicarbonate is 29. UA was positive for urinary tract infection. ASSESSMENT: 1. Acute urinary tract infection. 2. Moderate dehydration. 3. Chronic narcotic with multiple falls. 4. Hypertension. 5. History of lupus erythematosus. PLAN: 1. Plan is to start the patient on IV antibiotics. The patient has been started on Rocephin in the ER. We will continue with Rocephin at this time. 2. The patient has history of hypertension, well controlled. We will hold off on the blood pressure medications at this time and we will closely monitor to keep the blood pressures less than 135/80. 3. History of lupus erythematosus. The patient is on chronic prednisolone. We will continue the pr ednisolone at this time and if the patient's blood pressures drop, would need a stress dose of IV yanira roids. We will closely monitor the blood pressures. 4. The patient has severe dehydration. We will continue the patient on IV fluids at 100 mL an hour. We will closely monitor. 5. The patient has history of lupus. We will continue the patient on Plaquenil as a home dose. 6. The patient has a history of diabetes from chronic steroids. We will closely monitor right now s he is on any home medications for diabetes. We will closely monitor for any hyperglycemia. 7. Deep venous thrombosis prophylaxis with Lovenox. I spent 75 minutes with this patient.
[2017-10-26 21:47] VITALS: BMI 23.3
[2017-10-27] MEDS: HYDROcodone/Acetaminophen 10/325 mg Tablet PO PRN ×6 (00:43→21:23)
[2017-10-27 04:55] LABS: Anion Gap 8 mmol/L (10-20); BUN (Urea Nitrogen) 13 mg/dL (9.8-20.1); Calc. Creatinine Clearance 116 mL/min (70-130); Calcium 8.5 mg/dL (7.8-10.44); Carbon Dioxide 27 mmol/L (22-29); Chloride 110 mmol/L (98-107); Estimated GFR-MDRD Greater than 90; Glucose 95 mg/dL (70-105); Potassium 3.8 mmol/L (3.5-5.1); Sodium 141 mmol/L (136-145)
[2017-10-27] MEDS: Sodium Chloride 0.9% 1,000 ML IV SCH ×2 (05:01→16:09)
[2017-10-27 05:12] LABS: Band 4 % (5-11); Eosinophils 4 % (0-10); Hemoglobin 11.8 g/dL (12.0-16.0); Lymphocytes 42 % (21-51); MDiff Complete? YES; Mean Corpuscular HGB CONC 31.4 g/dL (32.0-36.0); Mean Corpuscular Volume 79.6 fl (81.0-99.0); Mean Platelet Volume 8.6 fL (7.4-10.4); Monocytes 9 % (0-10); Neutrophil 41 % (42-75); PLT Morphology Comment Appears Adequate; Platelet Count 237 thou/uL (130-400); RBC Distribution Width 13.4 % (11.5-14.5); Red Blood Cell (RBC) Count 4.72 mill/uL (4.20-5.40); White Blood Cell (WBC) Count 3.6 thou/uL (4.8-10.8)
[2017-10-27] MEDS: Losartan 25 MG TAB PO SCH ×2 (08:33→08:35)
[2017-10-27] MEDS: Famotidine 20 MG TAB PO SCH ×2 (08:34→20:00)
[2017-10-27] MEDS: Enoxaparin Sodium 40 MG/0.4 ML SYRINGE SC SCH (08:34)
[2017-10-27] MEDS: Amlodipine 5 MG TAB PO SCH ×2 (08:34→20:00)
[2017-10-27] MEDS: predniSONE 5 MG TAB PO SCH (08:35)
[2017-10-27] MEDS ORDERED: fentaNYL 75 mcg/hour Patch TD SCH (09:00)
[2017-10-27] MEDS: Hydroxychloroquine Sulfate 200 MG TAB PO SCH ×2 (09:05→20:00)
[2017-10-27] MEDS: Docusate 100 MG CAP PO SCH ×2 (09:05→20:01)
[2017-10-27] MEDS: busPIRone HCl 10 MG TAB PO SCH ×2 (09:05→20:00)
[2017-10-27] MEDS: Ondansetron ODT 4 MG TAB PO PRN (11:40)
--- NOTE | 2017-10-27 13:50 | PDOC.PN ---
- Subjective Encounter Start Date: 10/27/17 Encounter Start Time: 13:40 Subjective: f/u for UTI, falls and chronic pain. Currently receiving Rocephin with -: e. coli on Ucx. - Objective Resuscitation Status: Resuscitation Status FULL:Full Resuscitation MAR Reviewed: Yes Vital Signs & Weight: Vital Signs (12 hours) Temp Pulse Resp BP Pulse Ox 10/27/17 11:35 98.0 F 69 16 147/69 H 94 L 10/27/17 08:34 63 10/27/17 08:00 98.0 F 63 16 10/27/17 07:25 98.0 F 65 16 123/63 96 10/27/17 04:00 98.8 F 63 16 138/78 98 Weight Weight 157 lb 12.8 oz I&O: 10/26/17 10/27/17 10/28/17 06:59 06:59 06:59 Intake Total 1700 Balance 1700 Result Diagrams: 10/27/17 04:14 10/27/17 04:14 Radiology Reviewed by me: Yes (CT abd/pel - no acute process) Phys Exam - Physical Examination Constitutional: NAD HEENT: PERRLA, moist MMs, sclera anicteric, oral pharynx no lesions Neck: no nodes, no JVD, supple Respiratory: no wheezing, no rales, no rhonchi, clear to auscultation bilateral Cardiovascular: RRR, no significant murmur, no rub, gallop Gastrointestinal: soft, non-tender, no distention, positive bowel sounds R shoulder with limited ROM, guarding, TTP anteriorly N/V intact distally Musculoskeletal: no edema, pulses present Neurological: non-focal, normal sensation, moves all 4 limbs Psychiatric: normal affect, A&O x 3 Skin: no rash, normal turgor, cap refill <2 seconds Dx/Plan (1) E. coli UTI Code(s): N39.0 - URINARY TRACT INFECTION, SITE NOT SPECIFIED; B96.20 - UNSP ESCHERICHIA COLI THE CAUSE OF DISEASES CLASSD ELSWHR Status: Acute Comment: E. coli with final sensititivities pending, continue Rocephin 1gm IV daily (2) Moderate dehydration Code(s): E86.0 - DEHYDRATION Status: Acute Comment: Continue IVF's and monitor intake, encourage increased free-H2O intake (3) Falls Code(s): W19.XXXA - UNSPECIFIED FALL, INITIAL ENCOUNTER Status: Acute Comment: Multiple falls at home, PT evaluation, fall risk precautions (4) Chronic pain disorder Code(s): G89.4 - CHRONIC PAIN SYNDROME Status: Chronic Comment: Continue Duragesic patch, [place] (5) Hypertension Code(s): I10 - ESSENTIAL (PRIMARY) HYPERTENSION Status: Chronic (6) Right shoulder pain Code(s): M25.511 - PAIN IN RIGHT SHOULDER Status: Acute Qualifiers: Chronicity: acute Qualified Code(s): M25.511 - Pain in right shoulder Comment: Hx of avascular necrosis with implants, check shoulder radiographs 3 views today - Plan plan discussed w/ family, continue antibiotics, PT/OT, 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
--- NOTE | 2017-10-27 15:39 | RAD ---
RIGHT SHOULDER THREE VIEWS STANDARD 10/27/17 HISTORY: Multiple falls. Right sided pain. Vascular necrosis. COMPARISON: Radiograph 01/18. FINDINGS: Right shoulder hemiarthroplasty is in place. No subluxation. No evidence for hardware failure. No acu te fracture or malalignment. Ribs are unremarkable. IMPRESSION: No acute abnormality. POS: [facility]
[2017-10-27] MEDS: cefTRIAXone\\ROCEPHIN 1 GM in Sterile Water 10 ML SLOW IVP SCH (16:10)
[2017-10-28] MEDS: HYDROcodone/Acetaminophen 10/325 mg Tablet PO PRN ×4 (02:12→18:12)
[2017-10-28] MEDS: Sodium Chloride 0.9% 1,000 ML IV SCH ×2 (02:13→16:37)
[2017-10-28] MEDS: Famotidine 20 MG TAB PO SCH ×2 (08:20→20:50)
[2017-10-28] MEDS: Enoxaparin Sodium 40 MG/0.4 ML SYRINGE SC SCH (08:20)
[2017-10-28] MEDS: Amlodipine 5 MG TAB PO SCH ×2 (08:22→20:49)
[2017-10-28] MEDS: predniSONE 5 MG TAB PO SCH (08:22)
[2017-10-28] MEDS: busPIRone HCl 10 MG TAB PO SCH ×2 (08:23→20:50)
[2017-10-28] MEDS: Losartan 25 MG TAB PO SCH (08:23)
[2017-10-28] MEDS: Hydroxychloroquine Sulfate 200 MG TAB PO SCH ×2 (08:23→20:50)
[2017-10-28] MEDS: Ondansetron ODT 4 MG TAB PO PRN (08:58)
--- NOTE | 2017-10-28 10:58 | PDOC.PN ---
- Subjective Encounter Start Date: 10/28/17 Encounter Start Time: 10:56 Subjective: Feels weak and c/o dizziness - Objective MAR Reviewed: Yes Vital Signs & Weight: Vital Signs (12 hours) Temp Pulse Resp BP BP Pulse Ox 10/28/17 08:22 69 126/71 10/28/17 07:58 98.6 F 69 14 126/71 96 Result Diagrams: 10/27/17 04:14 10/27/17 04:14 Additional Labs: Microbiology 10/26/17 12:30 Urine clean catch Urine Culture - Final Escherichia coli 10/26/17 12:30 Urine clean catch Urine Culture - Preliminary Escherichia coli Phys Exam - Physical Examination Constitutional: NAD HEENT: PERRLA, moist MMs, sclera anicteric, oral pharynx no lesions Neck: no JVD r neck tinea rash Respiratory: no wheezing, no rales, no rhonchi, clear to auscultation bilateral Cardiovascular: RRR Gastrointestinal: soft, non-tender, no distention, positive bowel sounds Musculoskeletal: no edema, pulses present Neurological: non-focal, normal sensation, moves all 4 limbs Psychiatric: normal affect, A&O x 3 Skin: no rash Dx/Plan (1) E. coli UTI Code(s): N39.0 - URINARY TRACT INFECTION, SITE NOT SPECIFIED; B96.20 - UNSP ESCHERICHIA COLI THE CAUSE OF DISEASES CLASSD ELSWHR Status: Acute Comment: E. coli with pansensititivities , continue Rocephin 1gm IV daily (2) Falls Code(s): W19.XXXA - UNSPECIFIED FALL, INITIAL ENCOUNTER Status: Acute Comment: Multiple falls at home, PT evaluation, fall risk precautions (3) Moderate dehydration Code(s): E86.0 - DEHYDRATION Status: Acute Comment: Continue IVF's and monitor intake, encourage increased free-H2O intake (4) Anxiety and depression Code(s): F41.9 - ANXIETY DISORDER, UNSPECIFIED; F32.9 - MAJOR DEPRESSIVE DISORDER, SINGLE EPISODE, UNSPECIFIED Status: Chronic (5) Chronic pain disorder Code(s): G89.4 - CHRONIC PAIN SYNDROME Status: Chronic Comment: Continue Duragesic patch, [place] (6) Hypertension Code(s): I10 - ESSENTIAL (PRIMARY) HYPERTENSION Status: Chronic (7) Immunosuppressed status Code(s): D89.9 - DISORDER INVOLVING THE IMMUNE MECHANISM, UNSPECIFIED Status: Chronic (8) Systemic lupus erythematosus Code(s): M32.9 - SYSTEMIC LUPUS ERYTHEMATOSUS, UNSPECIFIED Status: Chronic - Plan PT/OT hemodynamically stable. cont ABX, -: [facility] arrange HH ,refusing rehab/snif -: Add topical antifungal for neck fungal infection -: cont home meds as below. -: may DC later today or tomorrow as pt c/o weakness * . Review of Systems - Review of Systems Constitutional: weakness, malaise ENT: negative: Ear Pain, Ear Discharge, Nose Pain, Nose Discharge, Nose Congestion, Mouth Pain, Mouth Swelling, Throat Pain, Throat Swelling, Other Respiratory: negative: Cough, Dry, Shortness of Breath, Hemoptysis, SOB with Excertion, Pleuritic Pain, Sputum, Wheezing Cardiovascular: light headedness. negative: chest pain, palpitations, orthopnea , paroxysmal nocturnal dyspnea, edema, other Gastrointestinal: negative: Nausea, Vomiting, Abdominal Pain, Diarrhea, Constipation, Melena, Hematochezia, Other Genitourinary: negative: Dysuria, Frequency, Incontinence, Hematuria, Retention , Other Musculoskeletal: negative: Neck Pain, Shoulder Pain, Arm Pain, Back Pain, Hand Pain, Leg Pain, Foot Pain, Other Skin: negative: Rash, Lesions, Conner, Bruising, Other - Medications/Allergies Allergies/Adverse Reactions: Allergies Allergy/AdvReac Type Severity Reaction Status Date / Time No Known Allergies Allergy Verified 10/26/17 19:58 Medications: Current Medications Hydrocodone Bitart/Acetaminophen ([place] 10/325) 1 tab PO Q4H PRN PRN Reason: Moderate Pain (4-6) 2ND LINE Last Admin: 10/28/17 08:20 Dose: 1 tab Hydrocodone Bitart/Acetaminophen ([place] 5/325) 1 tab PO Q4H PRN PRN Reason: Moderate Pain (4-6) 1ST LINE Amlodipine Besylate (Norvasc) 5 mg PO BID [facility] Last Admin: 10/28/17 08:22 Dose: 5 mg Buspirone HCl (Buspar) 10 mg PO BID [facility] Last Admin: 10/28/17 08:23 Dose: 10 mg Docusate Sodium (Colace) 100 mg PO BID [facility] Last Admin: 10/27/17 20:01 Dose: 100 mg Enoxaparin Sodium (Lovenox) 40 mg SC 0900 [facility] Last Admin: 10/28/17 08:20 Dose: 40 mg Famotidine (Pepcid) 20 mg PO BID [facility] Last Admin: 10/28/17 08:20 Dose: 20 mg Fentanyl (Duragesic) 75 mcg TD Q3D [facility] Last Admin: 10/26/17 20:10 Dose: 75 mcg Hydroxychloroquine Sulfate (Plaquenil) 200 mg PO Q12HR [facility] Last Admin: 10/28/17 08:23 Dose: 200 mg Sodium Chloride (Normal Saline 0.9%) 1,000 mls @ 100 mls/hr IV .Q10H [facility] Last Admin: 10/28/17 02:13 Dose: 1,000 mls Ceftriaxone Sodium 1 gm/ (Sterile Water) 10 mls @ 120 mls/hr SLOW IVP Q24HR [facility] Last Admin: 10/27/17 16:10 Dose: 10 mls Losartan Potassium (Cozaar) 25 mg PO DAILY [facility] Last Admin: 10/28/17 08:23 Dose: 25 mg Miscellaneous Medication (Movantik) 25 mg PO DAILY PRN PRN Reason: Constipation Ondansetron HCl (Zofran Odt) 4 mg PO Q6H PRN PRN Reason: Nausea/Vomiting Last Admin: 10/28/17 08:58 Dose: 4 mg Prednisone (Prednisone) 5 mg PO DAILY [facility] Last Admin: 10/28/17 08:22 Dose: 5 mg Promethazine HCl (Phenergan) 25 mg PO Q6HR PRN PRN Reason: Nausea Last Admin: 10/28/17 09:38 Dose: 25 mg Sertraline HCl (Zoloft) 100 mg PO DAILY [facility] Last Admin: 10/28/17 08:21 Dose: 100 mg Sodium Chloride (Flush - Normal Saline) 10 ml IVF Q12HR [facility] Last Admin: 10/28/17 08:23 Dose: 10 ml Sodium Chloride (Flush - Normal Saline) 10 ml IVF PRN PRN PRN Reason: Saline Flush
[2017-10-28] MEDS: Docusate 100 MG CAP PO SCH ×2 (14:21→20:49)
[2017-10-28] MEDS ORDERED: Morphine 2 MG/ML SYRINGE SLOW IVP SCH (16:15)
[2017-10-28] MEDS: cefTRIAXone\\ROCEPHIN 1 GM in Sterile Water 10 ML SLOW IVP SCH (17:13)
[2017-10-29] MEDS: Sodium Chloride 0.9% 1,000 ML IV SCH (02:43)
[2017-10-29] MEDS: HYDROcodone/Acetaminophen 10/325 mg Tablet PO PRN ×5 (02:44→18:42)
[2017-10-29 08:15] VITALS: BP 134/72; TEMP 99.1
[2017-10-29] MEDS ORDERED: Ibuprofen 800 MG TAB PO PRN (08:26)
[2017-10-29] MEDS: Docusate 100 MG CAP PO SCH (10:09)
[2017-10-29] MEDS: Enoxaparin Sodium 40 MG/0.4 ML SYRINGE SC SCH (10:09)
[2017-10-29] MEDS: Famotidine 20 MG TAB PO SCH (10:10)
[2017-10-29] MEDS: Amlodipine 5 MG TAB PO SCH (10:12)
[2017-10-29] MEDS: Hydroxychloroquine Sulfate 200 MG TAB PO SCH (10:12)
[2017-10-29] MEDS: busPIRone HCl 10 MG TAB PO SCH (10:12)
[2017-10-29] MEDS: predniSONE 5 MG TAB PO SCH (10:13)
[2017-10-29] MEDS: Losartan 25 MG TAB PO SCH (10:19)
--- NOTE | 2017-10-29 12:27 | CT ---
CT LUMBAR SPINE NONCONTRAST: History: Low back pain. Falls. FINDINGS: Vertebral body heights are maintained. Disc space narrowing, gaseous phenomenon and minimal retrolist hesis are present at the L5-S1 level. There is minimal disc bulge without significant compromise of t he thecal sac. Mild osteophytosis is present throughout the facets without foraminal stenoses. IMPRESSION: Mild degenerative changes lower lumbar spine. No acute abnormalities are demonstrated. POS: [facility]
--- NOTE | 2017-10-29 12:31 | CT ---
NONCONTRAST CT THORACIC SPINE: DATE: 10/29/17. History Back pain. FINDINGS: The vertebral heights are within normal limits. No fracture or subluxation is seen involving the tho racic spine. No definite intradural or extradural defect is appreciated on this exam. Central spina l canal and neural foramina are patent. No obvious lytic or splenic lesions are seen. There is a higgins btle lucency present within the T2 vertebral body but may be related to trabecular pattern and there is also artifact extending through this region. The visualized medial aspect of the lungs bilaterally appear clear. Vascular calcification at the aortic arch. IMPRESSION: No acute osseous abnormality involving the thoracic spine. Central spinal canal and neural foramen a re patent at all levels. POS: [facility]
--- NOTE | 2017-10-29 14:30 | PDOC.PN ---
- Subjective Encounter Start Date: 10/29/17 Encounter Start Time: 14:28 Subjective: feels a little better. -: had acute episode of lower back pain w R leg numbness yesterday -: reprts that she has similar episodic pain flares now & then - Objective MAR Reviewed: Yes Vital Signs & Weight: Vital Signs (12 hours) Temp Pulse Resp BP BP Pulse Ox 10/29/17 10:12 63 134/72 10/29/17 08:14 99.1 F 63 20 134/72 97 10/29/17 08:00 99.1 F 63 20 97 I&O: 10/28/17 10/29/17 10/30/17 06:59 06:59 06:59 Intake Total 3350 Output Total 750 Balance 2600 Result Diagrams: 10/27/17 04:14 10/27/17 04:14 Additional Labs: Microbiology 10/26/17 12:30 Urine clean catch Urine Culture - Final Escherichia coli Radiology Reviewed by me: Yes (Ct lumar & thoracic spine-no osseous abnormality) Phys Exam - Physical Examination Constitutional: NAD shaky and tired looking HEENT: PERRLA, moist MMs, sclera anicteric, oral pharynx no lesions Neck: no JVD Respiratory: no wheezing, no rales, no rhonchi, clear to auscultation bilateral Cardiovascular: RRR, no significant murmur Gastrointestinal: soft, non-tender, no distention, positive bowel sounds Musculoskeletal: no edema, pulses present scoliosis.Tenderness to lumbar spine & paraspinal muscles w/o obvious defro Neurological: non-focal, normal sensation, moves all 4 limbs Psychiatric: normal affect, A&O x 3 Dx/Plan (1) E. coli UTI Code(s): N39.0 - URINARY TRACT INFECTION, SITE NOT SPECIFIED; B96.20 - UNSP ESCHERICHIA COLI THE CAUSE OF DISEASES CLASSD ELSWHR Status: Acute Comment: E. coli with pansensititivities , continue Rocephin 1gm IV daily (2) Falls Code(s): W19.XXXA - UNSPECIFIED FALL, INITIAL ENCOUNTER Status: Acute Comment: Multiple falls at home, PT evaluation, fall risk precautions (3) Moderate dehydration Code(s): E86.0 - DEHYDRATION Status: Acute Comment: Continue IVF's and monitor intake, encourage increased free-H2O intake (4) Anxiety and depression Code(s): F41.9 - ANXIETY DISORDER, UNSPECIFIED; F32.9 - MAJOR DEPRESSIVE DISORDER, SINGLE EPISODE, UNSPECIFIED Status: Chronic (5) Chronic pain disorder Code(s): G89.4 - CHRONIC PAIN SYNDROME Status: Chronic Comment: Continue Duragesic patch, [place] (6) Hypertension Code(s): I10 - ESSENTIAL (PRIMARY) HYPERTENSION Status: Chronic (7) Immunosuppressed status Code(s): D89.9 - DISORDER INVOLVING THE IMMUNE MECHANISM, UNSPECIFIED Status: Chronic (8) Systemic lupus erythematosus Code(s): M32.9 - SYSTEMIC LUPUS ERYTHEMATOSUS, UNSPECIFIED Status: Chronic - Plan DVT proph w/SCDs Ct spine w/o acute changes.[facility] pain -: will consult pain medicine for recs for Dc pain meds & OP f/u -: DC home w HH after Pian med eval.HD stable * . Review of Systems - Review of Systems Constitutional: weakness, malaise. negative: fever, chills, sweats, other Eyes: negative: Pain, Vision Change, Conjunctivae Inflammation, Eyelid Inflammation, Redness, Other ENT: negative: Ear Pain, Ear Discharge, Nose Pain, Nose Discharge, Nose Congestion, Mouth Pain, Mouth Swelling, Throat Pain, Throat Swelling, Other Respiratory: negative: Cough, Dry, Shortness of Breath, Hemoptysis, SOB with Excertion, Pleuritic Pain, Sputum, Wheezing Cardiovascular: negative: chest pain, palpitations, orthopnea, paroxysmal nocturnal dyspnea, edema, light headedness, other Gastrointestinal: negative: Nausea, Vomiting, Abdominal Pain, Diarrhea, Constipation, Melena, Hematochezia, Other Genitourinary: negative: Dysuria, Frequency, Incontinence, Hematuria, Retention , Other Musculoskeletal: Shoulder Pain, Back Pain, Leg Pain Skin: negative: Rash, Lesions, Conner, Bruising, Other Neurological: negative: Weakness, Numbness, Incoordination, Change in Speech, Confusion, Seizures, Other - Medications/Allergies Allergies/Adverse Reactions: Allergies Allergy/AdvReac Type Severity Reaction Status Date / Time No Known Allergies Allergy Verified 10/26/17 19:58 Medications: Current Medications Hydrocodone Bitart/Acetaminophen ([place] 10/325) 1 tab PO Q4H PRN PRN Reason: Moderate Pain (4-6) 2ND LINE Last Admin: 10/29/17 14:15 Dose: 1 tab Hydrocodone Bitart/Acetaminophen ([place] 5/325) 1 tab PO Q4H PRN PRN Reason: Moderate Pain (4-6) 1ST LINE Amlodipine Besylate (Norvasc) 5 mg PO BID [facility] Last Admin: 10/29/17 10:12 Dose: 5 mg Buspirone HCl (Buspar) 10 mg PO BID [facility] Last Admin: 10/29/17 10:12 Dose: 10 mg Docusate Sodium (Colace) 100 mg PO BID [facility] Last Admin: 10/29/17 10:09 Dose: 100 mg Enoxaparin Sodium (Lovenox) 40 mg SC 0900 [facility] Last Admin: 10/29/17 10:09 Dose: 40 mg Famotidine (Pepcid) 20 mg PO BID [facility] Last Admin: 10/29/17 10:10 Dose: 20 mg Fentanyl (Duragesic) 75 mcg TD Q3D [facility] Last Admin: 10/26/17 20:10 Dose: 75 mcg Hydroxychloroquine Sulfate (Plaquenil) 200 mg PO Q12HR [facility] Last Admin: 10/29/17 10:12 Dose: 200 mg Sodium Chloride (Normal Saline 0.9%) 1,000 mls @ 100 mls/hr IV .Q10H [facility] Last Admin: 10/29/17 02:43 Dose: 1,000 mls Ceftriaxone Sodium 1 gm/ (Sterile Water) 10 mls @ 120 mls/hr SLOW IVP Q24HR [facility] Last Admin: 10/28/17 17:13 Dose: 10 mls Ibuprofen (Motrin) 800 mg PO Q12H PRN PRN Reason: Mild Pain (1-3) Losartan Potassium (Cozaar) 25 mg PO DAILY [facility] Last Admin: 10/29/17 10:19 Dose: 25 mg Miscellaneous Medication (Movantik) 25 mg PO DAILY PRN PRN Reason: Constipation Ondansetron HCl (Zofran Odt) 4 mg PO Q6H PRN PRN Reason: Nausea/Vomiting Last Admin: 10/28/17 08:58 Dose: 4 mg Pantoprazole Sodium (Protonix) 40 mg PO DAILY [facility] Last Admin: 10/29/17 10:10 Dose: 40 mg Prednisone (Prednisone) 5 mg PO DAILY [facility] Last Admin: 10/29/17 10:13 Dose: 5 mg Promethazine HCl (Phenergan) 25 mg PO Q6HR PRN PRN Reason: Nausea Last Admin: 10/28/17 09:38 Dose: 25 mg Sertraline HCl (Zoloft) 100 mg PO DAILY [facility] Last Admin: 10/29/17 10:13 Dose: 100 mg Sodium Chloride (Flush - Normal Saline) 10 ml IVF Q12HR [facility] Last Admin: 10/29/17 10:13 Dose: 10 ml Sodium Chloride (Flush - Normal Saline) 10 ml IVF PRN PRN PRN Reason: Saline Flush
[2017-10-29] MEDS ORDERED: methylPREDNISolone Sod Succ/PF 125 MG/2 ML VIAL IVP SCH (18:00)
[2017-10-29] MEDS ORDERED: Gabapentin 300 MG CAP PO SCH (18:00)
[2017-10-29] MEDS: cefTRIAXone\\ROCEPHIN 1 GM in Sterile Water 10 ML SLOW IVP SCH (18:42)
--- NOTE | 2017-10-30 06:00 | CON ---
DATE OF CONSULTATION: 10/29/2017 REASON FOR CONSULT: Pain management. CHIEF COMPLAINT: Lower back pain with right lower extremity pain. HISTORY OF PRESENT ILLNESS: This is a 52-year-old female with a known history of chronic pain due to osteonecrosis of both shoulders and both hips, status post replacement. She is on chronic narcotics due to pain, which is managed by Dr. Herron. This includes a regimen of 75 mcg of fentanyl q.72 hours and Gaston 10/325 one to two tablets p.o. q.8 hours p.r.n. pain. She has a history of microcytic anemia as well as lupus. The patient is on chronic steroids, which involve 5 mg of prednisone daily. The patient was stable until 2017 when she started falling, because of sudden onset of severe back pain and right lower extremity pain. She was unable to get up from the bed, so she was taken to the emergency room. She was noted to have a low-grade fever with chills and a severe backache. She had evidence of a sandrine UTI, which is now being treated with antibiotics. Currently, she complains of lower back pain, which radiates to the right lower extremity. This is chronic and persistent. It is worse with any type of movement and better with lying still. The pain is severe. The patient has been on a Fentanyl patch 75 mcg q.72 hours as well as Gaston up to 80 mg over the last 24 hours. She has also received 1 dose of IV morphine 2 mg for her breakthrough pain. The patient denies any bowel or bladder dysfunction. Currently, denies any fever, chills, nausea, or vomiting. PAST MEDICAL HISTORY: 1. Lupus. 2. Avascular necrosis of both shoulders and both hips, status post replacement. 3. Chronic microcytic anemia. 4. Hypertension. 5. Gastroparesis. PAST SURGICAL HISTORY: Tonsillectomy, hysterectomy, tooth extraction, bilateral shoulder replacement, bilateral hip replacement, left total knee replacement, arthroscopy, salpingo-oophorectomy on the right, cardiac catheterization, colonoscopies. ALLERGIES: No known drug allergies. FAMILY HISTORY: High blood pressure. SOCIAL HISTORY: The patient is , lives with her daughter, also is taken care of by her parents at times. No smoking, drugs, or alcohol use. REVIEW OF SYSTEMS: General: The patient denies any weight loss or weight gain. Eyes: Denies double vision or blurry vision. Cardiovascular: Denies chest pain, dyspnea on exertion, or orthopnea. Respiratory: Denies shortness of breath, wheezing, cough. Gastrointestinal: Admits to poor appetite. Denies dysphagia, abdominal pain, nausea, vomiting. Genitourinary: She does admit to frequency and dysuria; however, this has resolved since administration of antibiotics. Musculoskeletal: Reports the pain in the lower back. Denies any swelling in the extremities. Admits to bilateral shoulder and bilateral hip pain. Neurological: Denies convulsions, paralysis. Does admit to numbness and tingling to the right lower extremity. PHYSICAL EXAMINATION: CURRENT VITAL SIGNS: Stable. GENERAL: Alert and oriented x3, in mild distress. HEENT: Atraumatic, normocephalic. LUNGS: Symmetric bilateral respirations, nonlabored. ABDOMEN: Soft, nontender, no guarding, no tenderness. MUSCULOSKELETAL: 5/5 strength in the bilateral upper extremity and 5/5 strength in the left lower extremity in all muscle groups. Right lower extremity has subjective weakness with right knee extensor. She does have 4/5 weakness with right ankle plantar flexion, 5/5 strength with right ankle dorsiflexion. NEUROLOGICAL: 2+ reflexes in the bilateral upper extremities, 2+ bilateral patellar reflexes, absent bilateral Achilles reflexes. Sensation is intact to pinprick, slightly diminished to cold in the right lower extremity without a clear dermatomal distribution. IMAGING: CT of the lumbar spine displays a mild retrolisthesis of L5 on S1, degenerative L5-S1 disk with right paracentral bulge causing encroachment of the traversing S1 nerve root. Vacuum disk phenomena at the L5-S1 disk as well. ASSESSMENT AND PLAN: 1. Lumbosacral radiculopathy, M51.17. 2. Lumbar spondylolisthesis. 3. Chronic pain syndrome. 4. Urinary tract infection. PLAN: 1. The patient had a recent fall 1 week ago with severe exacerbation in back pain as well as right lower extremity pain. There are no pars fractures seen on the CT scan. She does have a retrolisthesis, which is likely degenerative in nature, which together with a right paracentral disk bulge is causing encroachment of the right S1 nerve root. This is likely the origin of her symptoms. Our plan is to give Solu-Medrol 80 mg IV push now. She will continue on her 5 mg p.o. prednisone daily. We also started her on gabapentin 300 mg p.o. b.i.d. We will see her in the pain clinic as an outpatient on Thursday where we will assess the patient. She will likely need an epidural steroid injection. We will also further investigate the spondylolisthesis with flexion and extension films to look for stability. For now, we will continue her home pain medications at home dose with the addition of gabapentin and one- time bolus of Solu-Medrol. 2. Spondylolisthesis as above. 3. Chronic pain syndrome, see above. 4. Urinary tract infection, though the Solu-Medrol worsen her UTI, she is on antibiotics and this should cover it for the urinary tract infection. Therefore , I believe the benefit of the Solu-Medrol always the risk. Thank you for the consult. Please feel free to call us with any questions. JULISSA
[2017-10-30] MEDS ORDERED: Gabapentin 300 MG CAP PO SCH (09:00)
--- NOTE | 2017-10-30 12:19 | DIS ---
CONDITION AT THE TIME OF DISCHARGE: Stable and improved. DISCHARGE DIAGNOSES: 1. Urinary tract infection from pansensitive Escherichia coli. 2. Chronic pain syndrome. 3. Multiple falls. 4. Dehydration. 5. Anxiety and depression. 6. Hypertension. 7. Immunocompromised status. 8. Systemic lupus erythematosus. PROCEDURES DONE: 1. CT scan of the abdomen and pelvis upon presentation, which is unremarkable for any acute changes. Mildly prominent iliac and lymph nodes are seen. 2. Lumbar and thoracic spinal MRI which are unremarkable for any acute osseous changes. 3. Shoulder x-ray on the right side which is normal. CONSULTATIONS: Pain Medication, Dr. Keith Bai. DISCHARGE MEDICATIONS: Bactrim 1 tablet p.o. b.i.d., Protonix 40 mg daily, Cozaar 25 mg daily, ibupr ofen as needed, Plaquenil 200 mg b.i.d., [place] as needed, Norvasc 5 mg p.o. b.i.d., prednisone 5 mg d aily, fentanyl patch of 75 mcg every 3 days, buspirone 10 mg b.i.d., Movantik 25 mg as needed, promet hazine as needed, sertraline 100 mg daily, and BuSpar 10 mg p.o. b.i.d. PRIMARY CARE PHYSICIAN: Dr. Lynnette Cooper DISCHARGE FOLLOWUP: 1. Primary care physician. 2. Dr. Bai. HISTORY OF PRESENT ILLNESS: Ms. Streeter is a 52-year-old female with past medical hist ory of SLE, avascular necrosis of both shoulders and the hip and hypertension, who presented to the e mergency room after sustaining multiple falls and severe pain in the back with urinary retention. juan daniel had a CT scan done in the ER because she presented with low-grade fever, chills and rigors. It was negative for any perinephric abscess. She did have sandrine evidence of UTI and was started on empiric IV antibiotics. She was admitted for further evaluation and started on IV fluids as well. Please s admission history and physical for further details. HOSPITAL COURSE: The patient's urine culture did grow E. coli which was pansensitive. She was treat ed with IV antibiotics while she was here and was later changed to oral on discharge. She continued to have severe pain related to her history of avascular necrosis and SLE and pain medic ation physicians were consulted. She underwent a CT scan of the lumbosacral spine which was negative for any acute abnormalities. There were no fractures despite the multiple falls. Dr. Richardson ingram ommended giving her 1 dose of Solu-Medrol and continue on 5 mg of prednisone and she was also started and given prescription of gabapentin 300 mg p.o. b.i.d. by him. He has graciously agreed to see the patient within a couple of days of her discharge. By the time of discharge, the patient was able to walk with the help of the physical therapy and home health was arranged for her as per her request. She had no acute issues and was back to being herse lf despite some persistent pain. She was seen and examined prior to discharge. Please see Hospitalist progress note from the date of discharge for further detail including [id number] interaction.
== END 2017-10-29 18:55 | disposition home or self-care (01) | DRG 690 ==
LOC: ERS 12:15 → ONC 17:09 → OBSVTOIN 10-27 13:46
PROVIDERS: ADMIT Family Medicine; ATTEND Family Medicine
DX: N39.0 Urinary tract infection, site not specified (principal); D89.9 Disorder involving the immune mechanism, unspecified; M32.9 Systemic lupus erythematosus, unspecified; B96.20 Unspecified Escherichia coli [E. coli] as the cause of diseases classified elsewhere; D64.9 Anemia, unspecified; E11.9 Type 2 diabetes mellitus without complications; Z16.39 Resistance to other specified antimicrobial drug; G89.4 Chronic pain syndrome; R29.6 Repeated falls; E86.0 Dehydration; F41.9 Anxiety disorder, unspecified; F32.9 Major depressive disorder, single episode, unspecified; I10 Essential (primary) hypertension; Z79.52 Long term (current) use of systemic steroids; Z96.612 Presence of left artificial shoulder joint; Z96.611 Presence of right artificial shoulder joint; Z96.643 Presence of artificial hip joint, bilateral; Z96.652 Presence of left artificial knee joint; Z90.710 Acquired absence of both cervix and uterus; Z79.891 Long term (current) use of opiate analgesic; M43.10 Spondylolisthesis, site unspecified; Z79.4 Long term (current) use of insulin
CPT/HCPCS: 36415; 72128; 72131; 74177; 80048; 80053; 81003; 81015; 83690; 85025; 87077; 87086; 87186; 96361; 96374; 96375; A4216; G8978-GP-CK; G8979-GP-CK; G8980-GP-CK; J0696; J1650; J2270; Q0162

== ENCOUNTER 2018-01-08 17:07 | Emergency (ER) | payer BC ==
[2018-01-08 17:29] LABS: #Eosinphils 0.1 thou/uL (0.0-0.7); #Lymphocytes 0.9 thou/uL (1.20-3.40); #Monocytes 0.6 thou/uL (0.11-0.59); %Basophils 0.2 % (0.0-1.0); %Eosinophils 1.1 % (0.0-10.0); %Lymphocytes 20.2 % (21.0-51.0); %Monocytes 13.3 % (0.0-10.0); %Neutrophils 65.2 % (42.0-75.0); Hemoglobin 12.6 g/dL (12.0-16.0); Mean Corpuscular HGB CONC 32.9 g/dL (32.0-36.0); Mean Corpuscular Hemoglobin 26.3 pg (27.0-31.0); Mean Platelet Volume 7.8 fL (7.4-10.4); Platelet Count 220 thou/uL (130-400); RBC Distribution Width 13.2 % (11.5-14.5); Red Blood Cell (RBC) Count 4.78 mill/uL (4.20-5.40); White Blood Cell (WBC) Count 4.5 thou/uL (4.8-10.8)
[2018-01-08 17:41] LABS: Bilirubin Negative (Negative); Blood, Urine Trace (Negative); Clarity CLEAR (Clear); Glucose, Urine (Dipstick) Negative (Negative); Leukocyte Negative (Negative); Nitrite Negative (Negative); Protein, Urine (Dipstick) Negative (Neg-Trace); pH, Urine 6.5 (5.0-9.0)
[2018-01-08 17:42] LABS: Bacteria/HPF None Seen HPF (None Seen); Hyaline Casts/LPF 0-3 HYALINE CAST LPF (0-3 Hyaline); Squamous Epithelial None Seen HPF (0-3); WBC/HPF 0-3 HPF (0-3)
[2018-01-08 17:51] LABS: ALT (SGPT) 22 U/L (8-55); AST (SGOT) 32 U/L (5-34); Albumin 3.9 g/dL (3.5-5.0); Alkaline Phosphatase 77 U/L (40-150); Anion Gap 8 mmol/L (10-20); BUN (Urea Nitrogen) 8 mg/dL (9.8-20.1); Bilirubin, Total 0.9 mg/dL (0.2-1.2); Calc. Creatinine Clearance 0 mL/min (70-130); Carbon Dioxide 32 mmol/L (22-29); Chloride 103 mmol/L (98-107); Estimated GFR-MDRD Greater than 90; Globulin 3.5 g/dL (2.4-3.5); Glucose 95 mg/dL (70-105); Lipase 15 U/L (8-78); Potassium 3.4 mmol/L (3.5-5.1); Protein, Total 7.4 g/dL (6.0-8.3); Sodium 140 mmol/L (136-145)
[2018-01-08] MEDS ORDERED: Ondansetron ODT 4 MG TAB ONE (18:26)
--- NOTE | 2018-01-08 20:05 | CT ---
CT OF THE ABDOMEN AND PELVIS WITHOUT CONTRAST 01/08/18 COMPARISON: 12/09/15 and 10/26/17. HISTORY: Left sided abdominal pain and fever. TECHNIQUE: Multiple contiguous axial images were obtained in a CT of the abdomen and pelvis without contrast. Co yuriy reformats were performed. FINDINGS: The liver, gallbladder, kidneys, and adrenal glands, spleen, and pancreas are unremarkable although e valuation of the solid organs is limited without IV contrast. No free air, free fluid, or stranding c hanges are seen in the abdomen or pelvis. The large and small bowel are normal in caliber. The appendix is normal. Evaluation of the pelvis is limited secondary to streak artifact from the patient's bilateral hip prostheses. The uterus is not s een and may have been removed. No abdominal or pelvic lymphadenopathy are seen. Atherosclerotic calcifications are seen in the aorta . The visualized inferior thorax is unremarkable. The bones and abdominal wall soft tissues are unre markable. IMPRESSION: No evidence of acute intra-abdominal/pelvic abnormality. POS: [facility]
== END 2018-01-08 20:51 | disposition home or self-care (01) ==
LOC: ERS 17:07
DX: R10.32 Left lower quadrant pain (principal); I10 Essential (primary) hypertension; M10.9 Gout, unspecified; E11.43 Type 2 diabetes mellitus with diabetic autonomic (poly)neuropathy; K31.84 Gastroparesis; F32.9 Major depressive disorder, single episode, unspecified; Z79.899 Other long term (current) drug therapy
CPT/HCPCS: 36415; 74176; 80053; 81003; 81015; 83690; 85025; 96361; 96374; J2270; Q0162

== ENCOUNTER 2018-01-20 10:22 | Outpatient (CLI) | payer BC | END 2018-01-20 10:23 | disposition home or self-care (01) | LOC: BICMAMMO 10:22 | PROVIDERS: ATTEND Internal Medicine | DX: Z12.31 Encounter for screening mammogram for malignant neoplasm of breast (principal); R92.1 Mammographic calcification found on diagnostic imaging of breast; Z80.3 Family history of malignant neoplasm of breast | CPT/HCPCS: 77063; 77067 ==

== ENCOUNTER 2018-03-17 10:22 | Emergency (ER) | payer BC ==
--- NOTE | 2018-03-17 12:08 | RAD ---
FOUR VIEWS LEFT KNEE: Date: 03-17-18 History: Trauma. Comparison: 06-29-16 FINDINGS: Again noted is left total knee prosthesis. No hardware complication is seen. There is no fracture or dislocation seen. Small joint effusion is seen in the suprapatellar location. Skin clips noted on david or study have been removed. No other findings. IMPRESSION: 1. Post-surgical change related to left total knee prosthesis. No hardware complications or fracture seen involving the left knee. 2. Small knee joint effusion. POS: [facility]
--- NOTE | 2018-03-17 12:11 | RAD ---
AP PELVIS: Date: 03/17/18 HISTORY: Trauma. COMPARISON: 03/27/14. FINDINGS: There are now bilateral total hip prostheses noted in place. Distal portions of each femoral componen t are not imaged. There is no fracture or dislocation seen. Phleboliths again overlie the pelvis. IMPRESSION: 1. No acute osseous abnormality. 2. Bilateral total hip prostheses. POS: [facility]
--- NOTE | 2018-03-17 12:13 | RAD ---
LUMBAR SPINE THREE VIEWS: 03/17/2018 HISTORY: Trauma. The patient reports generalized back pain. The patient fell one day ago. COMPARISON: 01/10/2017 FINDINGS: There is partial visualization of a bilateral total hip prosthesis again present. There are five non -rib-bearing lumbar type vertebral bodies. Vertebral body heights are within normal limits. Again n oted is narrowing of the L5-S1 intervertebral disk space, with slight retrolisthesis of L5 on S1, whi ch is stable from the prior exam. No additional level of subluxation is seen. There is no fracture identified. Phleboliths again overly the pelvis. IMPRESSION: 1. Degenerative changes at the lumbosacral junction with slight retrolisthesis of L5 on S1, which is a stable finding. 2. No acute fracture or new level of subluxation is present on this examination. POS: [facility]
--- NOTE | 2018-03-17 12:21 | RAD ---
RIGHT SHOULDER 3 VIEWS: Date: 03/17/18 HISTORY: Fall. Right shoulder pain. FINDINGS/IMPRESSION: A right humeral head prosthesis is present, in good position and alignment. No acute fracture or disl ocation is identified. POS: [facility]
[2018-03-17] MEDS ORDERED: Morphine 4 MG/ML VIAL ONE (14:05)
== END 2018-03-17 15:11 | disposition home or self-care (01) ==
LOC: ERS 10:22
DX: M79.1 Myalgia (principal); I10 Essential (primary) hypertension; M10.9 Gout, unspecified; E11.9 Type 2 diabetes mellitus without complications; F32.9 Major depressive disorder, single episode, unspecified; Z79.899 Other long term (current) drug therapy
CPT/HCPCS: 72100; 72170; 96372; J2270

== ENCOUNTER 2018-03-25 10:19 | Outpatient (CLI) | payer BC | END 2018-03-25 10:20 | disposition home or self-care (01) | LOC: BICULT 10:19 | PROVIDERS: ATTEND Internal Medicine Gastroenterology | DX: R10.84 Generalized abdominal pain (principal); R11.0 Nausea; R19.7 Diarrhea, unspecified; N13.30 Unspecified hydronephrosis | CPT/HCPCS: 76705 ==

== ENCOUNTER 2018-04-13 08:11 | Outpatient (CLI) | payer BC ==
--- NOTE | 2018-04-13 09:45 | RAD ---
RIGHT SHOULDER THREE VIEWS: History: Fall. FINDINGS: The bones are demineralized. The humeral prosthesis appears in good position without evidence of loos ening. IMPRESSION: No evidence of fracture. POS: [facility]
--- NOTE | 2018-04-13 10:10 | RAD ---
RIGHT HIP TWO VIEWS: Indication: Pain, fall. Comparison: 08-07-14 FINDINGS: Right hip prosthesis remains in place. There is no acute fracture identified. Pelvic phleboliths are present. IMPRESSION: No acute osseous abnormality of the post-operative right hip. POS: [facility]
--- NOTE | 2018-04-13 10:12 | RAD ---
CERVICAL SPINE RADIOGRAPHIC SERIES FOUR VIEWS: Indication: Fall with pain. FINDINGS: Prevertebral soft tissues are normal in caliber. There is no compression fracture or subluxation. Mil d degenerative change is seen within the cervical spine. Lateral masses of C1 maintain appropriate al ignment. The dens is grossly intact where visualized. IMPRESSION: 1. No acute osseous abnormality of the cervical spine. 2. If there is a high level of clinical concern and given the history of injury, i.e. neck pain, cerv ical spine CT would be warranted to exclude a radiographically occult injury. Correlate clinically in this regard. POS: [facility]
== END 2018-04-13 08:12 | disposition home or self-care (01) ==
LOC: RAD 08:11
PROVIDERS: ATTEND Nurse Practitioner Family
DX: M54.2 Cervicalgia (principal); M25.551 Pain in right hip; M25.511 Pain in right shoulder; Z98.890 Other specified postprocedural states; W19.XXXA Unspecified fall, initial encounter
CPT/HCPCS: 72040

== ENCOUNTER 2018-11-25 09:24 | Outpatient (CLI) | payer BC ==
--- NOTE | 2018-11-25 11:29 | MRI ---
MRI BRAIN WITH AND WITHOUT IV CONTRAST: HISTORY: A 53-year-old female with ataxia. Multiple falls, headaches. COMPARISON: 07/24/2013. FINDINGS: No restricted diffusion is seen. No evidence of infarct, hemorrhage, mass, midline shift, or abnorma l extraaxial fluid collections are seen. No abnormal postcontrast enhancement is identified. The ve ntricular size is normal and the basilar cisterns patent. A few tiny foci of T2 prolongation in the periventricular subcortical white matter are nonspecific and likely due to mild chronic small-vessel ischemic disease. The ventricular size is normal and the basilar cisterns are patent. There are cys ts in the right parotid gland. Visualized paranasal sinuses and mastoid air cells are well aerated. IMPRESSION: 1. No evidence of acute intracranial process or mass. 2. Right parotid gland cysts. POS: [facility]
== END 2018-11-25 09:25 | disposition home or self-care (01) ==
LOC: BICMRI 09:24
PROVIDERS: ATTEND Psychiatry & Neurology Neurology
DX: R27.0 Ataxia, unspecified (principal); K11.6 Mucocele of salivary gland
CPT/HCPCS: 70553

== ENCOUNTER 2018-12-06 12:41 | Outpatient (CLI) | payer BC ==
--- NOTE | 2018-12-06 15:09 | MRI ---
MRI OF THE RIGHT HIP WITHOUT CONTRAST: HISTORY: History of right-sided sciatic pain after right hip replacement in 2014. The patient had multiple ep isodes of falls. COMPARISON: Right hip radiograph dated 04/13/2018, FINDINGS: There is prominent susceptibility artifact from the right hip prosthesis that limits image detail. Th e visualized course of the right sciatic nerve appears within normal limits. There is some suspected fluid distention involving the right iliopsoas bursa suspicious for mild to moderate right iliopsoas bursitis. Mild amount of trochanteric bursitis is present. No overt muscular atrophy is evident. There is heterogeneous marrow signal intensity involving the visualized marrow space of the right hemipelvis. No definite free fluid or enlarged lymph nodes are evident. No definite acute fracture is grossly evident. IMPRESSION: 1. Mild to moderate right iliopsoas bursitis and mild right trochanteric bursitis. 2. Visualized aspects of the right sciatic nerve appear within normal limits. Transcribed Date/Time: 12/06/2018 3:22 PM
== END 2018-12-06 12:42 | disposition home or self-care (01) ==
LOC: BICMRI 12:41
PROVIDERS: ATTEND Psychiatry & Neurology Neurology
DX: M54.30 Sciatica, unspecified side (principal); M70.61 Trochanteric bursitis, right hip

== ENCOUNTER 2018-12-16 09:58 | Emergency (ER) | payer BC ==
[2018-12-16] MEDS ORDERED: Ondansetron PF 4 MG/2 ML Vial ONE (10:40)
--- NOTE | 2018-12-16 11:30 | RAD ---
Portable chest: HISTORY: Weakness. Vomiting. COMPARISON: 06/29/2016 FINDINGS: Lung coles are clear. Heart and mediastinum appear unremarkable. Vascularity is normal. Visualized osseous structures unremarkable. IMPRESSION: No acute finding
[2018-12-16 11:31] LABS: Bilirubin Small (Negative); Blood, Urine Small (Negative); Clarity CLEAR (Clear); Glucose, Urine (Dipstick) Negative (Negative); Leukocyte Negative (Negative); Nitrite Negative (Negative); Protein, Urine (Dipstick) 30 mg/dL (Neg-Trace); Specific Gravity, Urine 1.027 (1.002-1.036); Urobilinogen 0.2 mg/dL (0.2-1.0)
[2018-12-16 11:34] LABS: Bacteria/HPF None Seen HPF (None Seen); Hyaline Casts/LPF 7-10 HYALINE CAST LPF (0-3 Hyaline); Pathc Cast-AUWi Flag 0.95 (0-2.49); Squamous Epithelial 0-3 HPF (0-3)
[2018-12-16 11:41] LABS: ALT (SGPT) 24 U/L (8-55); AST (SGOT) 40 U/L (5-34); Albumin 3.9 g/dL (3.5-5.0); Alkaline Phosphatase 55 U/L (40-150); Anion Gap 12 mmol/L (10-20); BUN (Urea Nitrogen) 10 mg/dL (9.8-20.1); Bilirubin, Total 0.6 mg/dL (0.2-1.2); Calc. Creatinine Clearance 0 mL/min (70-130); Calcium 9.1 mg/dL (7.8-10.44); Carbon Dioxide 26 mmol/L (22-29); Chloride 106 mmol/L (98-107); Estimated GFR-MDRD Greater than 90; Globulin 3.4 g/dL (2.4-3.5); Glucose 90 mg/dL (70-105); Potassium 4.2 mmol/L (3.5-5.1); Protein, Total 7.3 g/dL (6.0-8.3); Sodium 140 mmol/L (136-145)
[2018-12-16 12:01] LABS: Band 3 % (5-11); Eosinophils 2 % (0-10); Hemoglobin 11.2 g/dL (12.0-16.0); Hypochromia SLIGHT = 6-15 cells (100X) (0-5/hpf); Lymphocytes 24 % (21-51); MDiff Complete? YES; Mean Corpuscular HGB CONC 30.9 g/dL (32.0-36.0); Mean Corpuscular Hemoglobin 25.2 pg (27.0-31.0); Mean Corpuscular Volume 81.4 fL (78.0-98.0); Monocytes 14 % (0-10); Neutrophil 57 % (42-75); Platelet Count 212 thou/uL (130-400); Polychromasia SLIGHT = 2-3 cells (100X) (0-2/hpf); RBC Distribution Width 12.6 % (11.5-14.5); Red Blood Cell (RBC) Count 4.45 mill/uL (4.20-5.40); White Blood Cell (WBC) Count 4.5 thou/uL (4.8-10.8)
--- NOTE | 2018-12-18 15:08 | EKG ---
Test Reason : WEAK Blood Pressure : / mmHG Vent. Rate : 058 BPM Atrial Rate : 058 BPM P-R Int : 158 ms QRS Dur : 088 ms QT Int : 426 ms P-R-T Axes : 071 -07 022 degrees QTc Int : 418 ms Sinus bradycardia Possible Left atrial enlargement Anterior infarct , age undetermined Abnormal ECG Confirmed by LEN TREJO ([id number]), technical writer and editor JAY SIMS ([id number]) on 12/18/2018 3:08:36 PM Referred By: Confirmed By:LEN TREJO
== END 2018-12-16 13:45 | disposition home or self-care (01) ==
LOC: ERS 09:58
DX: R53.1 Weakness (principal); M32.9 Systemic lupus erythematosus, unspecified; I10 Essential (primary) hypertension; M10.9 Gout, unspecified; F32.9 Major depressive disorder, single episode, unspecified; E11.43 Type 2 diabetes mellitus with diabetic autonomic (poly)neuropathy; K31.84 Gastroparesis; R11.10 Vomiting, unspecified; Z79.899 Other long term (current) drug therapy
CPT/HCPCS: 71045; 80053; 81003; 81015; 84484; 85025; 93005; 96361; 96374; J2405

== ENCOUNTER 2019-01-26 08:35 | Outpatient (CLI) | payer BC ==
--- NOTE | 2019-01-26 10:51 | MMO ---
Bilateral MAMMO Bilat Screen [facility]. CLINICAL HISTORY: Patient is 53 years old and is seen for screening. The patient has the following family history of breast cancer: sister, at age 49. The patient has no personal history of cancer. The patient has a history of bilateral Cyst Aspiration - benign. VIEWS: The views performed were: bilateral craniocaudal with tomosynthesis and bilateral mediolateral oblique with tomosynthesis. FILMS COMPARED: The present examination has been compared to prior imaging studies performed at [facility] on 11/17/2014, 01/02/2016, 01/15/2017 and 01/20/2018. MAMMOGRAM FINDINGS: There are scattered fibroglandular densities. Benign calcifications are noted bilaterally. There are no suspicious masses, suspicious calcifications, or new areas of architectural distortion. IMPRESSION: THERE IS NO MAMMOGRAPHIC EVIDENCE OF MALIGNANCY. A ROUTINE FOLLOW-UP MAMMOGRAM IN 1 YEAR IS RECOMMENDED. THE RESULTS OF THIS EXAM WERE SENT TO THE PATIENT. ACR BI-RADS Category 2 - Benign finding MAMMOGRAPHY NOTE: 1. A negative mammogram report should not delay a biopsy if a dominant of clinically suspicious mass is present. 2. Approximately 10% to 15% of breast cancers are not detected by mammography. 3. Adenosis and dense breasts may obscure an underlying neoplasm. Reported by: REBA AMSSEY MD Electonically Signed: [id number]
== END 2019-01-26 08:36 | disposition home or self-care (01) ==
LOC: BICMAMMO 08:35
PROVIDERS: ATTEND Internal Medicine
DX: Z12.31 Encounter for screening mammogram for malignant neoplasm of breast (principal); Z80.3 Family history of malignant neoplasm of breast
CPT/HCPCS: 77063; 77067

== ENCOUNTER 2019-03-02 09:51 | Observation (INO) | payer BC ==
[~2019-03-02 09:51] MED LIST: ISOVUE-370 76%-LOCM 1 ML ONE
[2019-03-02] MEDS ORDERED: Ondansetron PF 4 MG/2 ML Vial ONE (10:17)
[2019-03-02] MEDS ORDERED: Morphine 4 MG/ML VIAL ONE ×2 (10:17→13:43)
[2019-03-02 10:33] LABS: #Lymphocytes 1.1 thou/uL (1.20-3.40); #Monocytes 1.1 thou/uL (0.11-0.59); #Neutrophils 5.9 thou/uL (1.40-6.50); %Basophils 0.4 % (0.0-1.0); %Eosinophils 0.1 % (0.0-10.0); %Monocytes 13.6 % (0.0-10.0); %Neutrophils 71.9 % (42.0-75.0); Hemoglobin 11.2 g/dL (12.0-16.0); Mean Corpuscular HGB CONC 32.4 g/dL (32.0-36.0); Mean Corpuscular Hemoglobin 25.5 pg (27.0-31.0); Mean Corpuscular Volume 78.7 fL (78.0-98.0); Mean Platelet Volume 8.7 fL (7.4-10.4); Platelet Count 214 thou/uL (130-400); RBC Distribution Width 12.1 % (11.5-14.5); White Blood Cell (WBC) Count 8.1 thou/uL (4.8-10.8)
--- NOTE | 2019-03-02 10:36 | RAD ---
CHEST 1 VIEW: DATE: 03/02/2019. TIME: 10:24 a.m. HISTORY: Difficult breathing, chest pain. COMPARISON: Comparison is made with the exam of 12/16/2018. FINDINGS: The heart size is normal. The lungs are expanded without focal areas of consolidation, pneumothorace s, or pleural effusions. IMPRESSION: No acute process. POS: [facility]
[2019-03-02 10:58] LABS: ALT (SGPT) 22 U/L (8-55); AST (SGOT) 29 U/L (5-34); Alkaline Phosphatase 57 U/L (40-150); Anion Gap 16 mmol/L (10-20); BUN (Urea Nitrogen) 11 mg/dL (9.8-20.1); Bilirubin, Total 0.7 mg/dL (0.2-1.2); CK (CPK) 844 U/L (29-168); Calc. Creatinine Clearance 0 mL/min (70-130); Calcium 8.9 mg/dL (7.8-10.44); Carbon Dioxide 26 mmol/L (22-29); Chloride 102 mmol/L (98-107); Estimated GFR-MDRD Greater than 90; Globulin 3.1 g/dL (2.4-3.5); Glucose 84 mg/dL (70-105); Lipase 10 U/L (8-78); Potassium 3.7 mmol/L (3.5-5.1); Protein, Total 7.1 g/dL (6.0-8.3); Sodium 140 mmol/L (136-145)
--- NOTE | 2019-03-02 12:23 | CT ---
CT ANGIO OF CHEST PERFORMED WITH INTRAVENOUS CONTRAST ENHANCEMENT WITH 3D RECONSTRUCTIONS: HISTORY: Left-sided chest pain and shortness of breath. COMPARISON: A 08/20/2017 CT angio of the chest and chest x-ray done earlier today. FINDINGS: There is a pneumonic-appearing infiltrate within the left upper lobe in the left mid lung field. The right lung appears clear. There is no significant mediastinal or hilar adenopathy. The thoracic aorta is normal in caliber. There is fair pulmonary artery opacification, there is no C T evidence for pulmonary embolus. The visualized liver parenchyma shows no focal findings. Right and left adrenal glands were normal. IMPRESSION: Left upper lobe pneumonia. POS: [facility]
[2019-03-02] MEDS ORDERED: cefTRIAXone\\ROCEPHIN 2 GM VIAL ONE (12:31)
[2019-03-02] MEDS ORDERED: Azithromycin 500 MG VIAL ONE (12:32)
[2019-03-02 13:46] LABS: Troponin I Less than 0.010 ng/mL (< 0.028)
[2019-03-02] MEDS ORDERED: Ondansetron ODT 4 MG TAB SL PRN (14:54)
[2019-03-02] MEDS ORDERED: Ondansetron PF 4 MG/2 ML Vial IVP PRN (14:54)
[2019-03-02] MEDS ORDERED: Sodium Chloride 0.9% 1,000 ML IV SCH ×2 (14:54→17:53)
[2019-03-02 15:03] VITALS: BMI 20.1
[2019-03-02 16:45] LABS: Troponin I Less than 0.010 ng/mL (< 0.028)
[2019-03-02] MEDS ORDERED: Acetaminophen 650 MG Suppository PR PRN (17:42)
[2019-03-02] MEDS ORDERED: Acetaminophen 325 MG TAB PO PRN (17:42)
[2019-03-02] MEDS ORDERED: Mirtazapine 15 MG TAB PO PRN (17:51)
[2019-03-02] MEDS ORDERED: Promethazine 25 MG TAB PO PRN (17:51)
[2019-03-02] MEDS ORDERED: predniSONE 20 MG TAB PO SCH (18:00)
--- NOTE | 2019-03-02 18:10 | PDOC.HHP ---
Hospitalist HPI - History of Present Illness chest pain History of Present Illness: Patient states she developed chest pain this morning. Was feeling well in herself but does recall having low grade fevers throughout the week last week. Denies any respiratory symptoms. She has a known history of SLE, and recently has tapering of her steroids, previously on a high dose, and currently down to 2 mg PO daily. She states the pain is on the entire anterior/posterior left chest, worse with deep inspiration, therefore taking shallow breaths. No associated cough/hemoptysis. She states the pain has been constant. Significantly worse with movement. Has been trying to lay still. Difficulty walking to the bathroom due to the pain. When it is exacerbated, she finds it harder to breath. She states it is a 10/10 in severity, stabbing and states the morphine given in the ER eased it to a 4/10 but she still has to lay still otherwise it becomes severe. ED Course: In the ED she had labs done and imaging including a CXR which was negative. CTA done showed no PE but demonstrated CHANEL pneumonia. She was started on IV Abx (Zosyn and Vancomycin). Hospitalist History - Past Medical History Source: patient, family Pulmonary: reports: hypertension Rheumatologic: reports: Other (SLE) Endocrine: reports: Diabetes Other Medical History: Avascular osteonecrosis of bilateral hips, bilateral shoulders and bilateral knees. Gastroparesis. Chronic Back Pain. Gout. DM ype II. Chronic Pain Syndrome Antiphospholipid Syndrome Costochondritis Hx of Crowley Rheumatoid Arthritis - Past Surgical History Past Surgical History: reports: Hysterectomy, Total Hip Replacement (Bilateral) , Total Knee Replacement (Bilateral), Other (Bilateral shoulder replacement) - Family History Family History: reports: no pertinent history - Social History Smoking Status: Never smoker Alcohol: denies: None, Rare, Occassional, Heavy Drugs: denies: none, cocaine, heroine, marijuana, methamphetamine, Other - Exam General Appearance: ill appearing (Appears to be in obvious discomfort and generally malaised) Eye: PERRL, anicteric sclera ENT: normocephalic atraumatic, no oropharyngeal lesions Neck: supple, no lymphadenopathy Heart: RRR Respiratory: no wheezes, no rales, no ronchi (Reduced breath sounds due to shallow breaths, decreased effort due to subsequent pain) Gastrointestinal: soft, non-tender, non-distended, normal bowel sounds Extremities: no cyanosis, no clubbing, no edema Skin: normal turgor, no lesions, no rashes Neurological: CN's grossly intact Musculoskeletal: normal tone, normal strength Psychiatric: normal affect, normal behavior, A&O x 3 Hospitalist Results - Labs Result Diagrams: 03/03/19 04:27 03/03/19 04:27 Lab results: WBC 8.1 thou/uL (4.8-10.8) 03/02/19 10:34 Hgb 11.2 g/dL (12.0-16.0) L 03/02/19 10:34 Hct 34.7 % (36.0-47.0) L 03/02/19 10:34 MCV 78.7 fL (78.0-98.0) 03/02/19 10:34 Plt Count 214 thou/uL (130-400) 03/02/19 10:34 Neutrophils % 71.9 % (42.0-75.0) 03/02/19 10:34 Sodium 140 mmol/L (136-145) 03/02/19 10:04 Potassium 3.7 mmol/L (3.5-5.1) 03/02/19 10:04 Chloride 102 mmol/L (98-107) 03/02/19 10:04 Carbon Dioxide 26 mmol/L (22-29) 03/02/19 10:04 BUN 11 mg/dL (9.8-20.1) 03/02/19 10:04 Creatinine 0.62 mg/dL (0.6-1.1) 03/02/19 10:04 Glucose 84 mg/dL (70-105) 03/02/19 10:04 Lactic Acid 1.4 mmol/L (0.5-2.2) 03/02/19 10:12 Calcium 8.9 mg/dL (7.8-10.44) 03/02/19 10:04 Total Bilirubin 0.7 mg/dL (0.2-1.2) 03/02/19 10:04 AST 29 U/L (5-34) 03/02/19 10:04 ALT 22 U/L (8-55) 03/02/19 10:04 Alkaline Phosphatase 57 U/L (40-150) 03/02/19 10:04 Creatine Kinase 844 U/L (29-168) H 03/02/19 10:04 Troponin I Less than 0.010 ng/mL (< 0.028) 03/02/19 16:06 B-Natriuretic Peptide 38.3 pg/mL (0-100) 03/02/19 10:13 Serum Total Protein 7.1 g/dL (6.0-8.3) 03/02/19 10:04 Albumin 4.0 g/dL (3.5-5.0) 03/02/19 10:04 Lipase 10 U/L (8-78) 03/02/19 10:04 - Radiology Interpretation Chest x-ray Status: report reviewed by me CT scan - chest Status: report reviewed by me Hospitalist H&P A/P - Problem (1) Pneumonia Code(s): J18.9 - PNEUMONIA, UNSPECIFIED ORGANISM Status: Acute Assessment and Plan: Continue IV Abx. Consult Dr. Muhammad. For associated pain, will try Lidocaine patches. Incentive spirometry. (2) Diabetes mellitus Code(s): E11.9 - TYPE 2 DIABETES MELLITUS WITHOUT COMPLICATIONS Status: Chronic Assessment and Plan: ISS, monitor glucose. Resume home meds. (3) Gastroparesis Code(s): K31.84 - GASTROPARESIS Status: Chronic Assessment and Plan: Resume Reglan which she takes at home. (4) Hypertension Code(s): I10 - ESSENTIAL (PRIMARY) HYPERTENSION Status: Chronic Assessment and Plan: Monitor BP, hold BP meds, continue IVF 100 cc/hr. (5) Systemic lupus erythematosus Code(s): M32.9 - SYSTEMIC LUPUS ERYTHEMATOSUS, UNSPECIFIED Status: Chronic Assessment and Plan: Start Prednisone 40 mg PO daily. (6) DVT prophylaxis Code(s): Z29.9 - ENCOUNTER FOR PROPHYLACTIC MEASURES, UNSPECIFIED Status: Acute Assessment and Plan: Mechanical SCDs, walking program. (7) GERD (gastroesophageal reflux disease) Code(s): K21.9 - GASTRO-ESOPHAGEAL REFLUX DISEASE WITHOUT ESOPHAGITIS Status: Acute Assessment and Plan: Resume protonix. - Plan Plan: Discussed with Dr. Piper who agrees with plan above. Addendum by Mal Piper MD: Chart reviewed, pt seen by me. Discussed case with Ms. Heard. Agree with plan of care as documented. Please refer to my separate progress note for further details.
[2019-03-02] MEDS ORDERED: Dextrose 5% in Water 1,000 ML IV PRN (18:24)
[2019-03-02] MEDS ORDERED: HumaLOG 300 UNITS/3 ML VIAL SC PRN ×2 (18:24)
[2019-03-02] MEDS ORDERED: Dextrose 50% Abboject 50 ML SYRINGE SLOW IVP PRN (18:24)
[2019-03-02] MEDS ORDERED: Ibuprofen 100 MG/5 ML UDCUP PO PRN (18:25)
[2019-03-02] MEDS: Lidocaine 5% Patch TD SCH (18:29)
[2019-03-02] MEDS ORDERED: Famotidine/PF 20 mg/2ml Vial SLOW IVP SCH (21:00)
[2019-03-02] MEDS: Hydroxychloroquine Sulfate 200 MG TAB PO SCH (21:44)
[2019-03-02] MEDS: cloNIDine 0.1 MG TAB PO SCH (21:44)
[2019-03-03 04:43] LABS: #Lymphocytes 0.4 thou/uL (1.20-3.40); #Monocytes 0.1 thou/uL (0.11-0.59); #Neutrophils 3.3 thou/uL (1.40-6.50); %Basophils 0.9 % (0.0-1.0); %Eosinophils 0.1 % (0.0-10.0); %Lymphocytes 11.2 % (21.0-51.0); %Monocytes 2.8 % (0.0-10.0); %Neutrophils 84.9 % (42.0-75.0); Hemoglobin 11.2 g/dL (12.0-16.0); Mean Corpuscular HGB CONC 32.1 g/dL (32.0-36.0); Mean Corpuscular Hemoglobin 25.9 pg (27.0-31.0); Mean Corpuscular Volume 80.8 fL (78.0-98.0); Mean Platelet Volume 8.7 fL (7.4-10.4); Platelet Count 227 thou/uL (130-400); RBC Distribution Width 12.2 % (11.5-14.5); Red Blood Cell (RBC) Count 4.32 mill/uL (4.20-5.40); White Blood Cell (WBC) Count 3.9 thou/uL (4.8-10.8)
[2019-03-03 05:06] LABS: Anion Gap 12 mmol/L (10-20); BUN (Urea Nitrogen) 9 mg/dL (9.8-20.1); Calc. Creatinine Clearance 109 mL/min (70-130); Calcium 8.7 mg/dL (7.8-10.44); Carbon Dioxide 25 mmol/L (22-29); Chloride 106 mmol/L (98-107); Estimated GFR-MDRD Greater than 90; Glucose 136 mg/dL (70-105); Potassium 4.6 mmol/L (3.5-5.1); Sodium 138 mmol/L (136-145)
[2019-03-03] MEDS ORDERED: predniSONE 20 MG TAB PO SCH ×2 (08:00→15:15)
[2019-03-03] MEDS: Dicyclomine 10 MG CAP PO SCH ×3 (08:56→16:31)
[2019-03-03] MEDS: Amlodipine 10 MG TAB PO SCH (08:56)
[2019-03-03] MEDS: cloNIDine 0.1 MG TAB PO SCH ×2 (08:57→21:42)
[2019-03-03] MEDS: Folic Acid 1 MG TAB PO SCH (08:58)
[2019-03-03] MEDS: Losartan 25 MG TAB PO SCH (08:58)
[2019-03-03] MEDS: Hydroxychloroquine Sulfate 200 MG TAB PO SCH ×2 (08:58→21:42)
[2019-03-03] MEDS: Azithromycin 500 MG in Sodium Chloride 0.9% 250 ML 250 ML IVPB SCH (12:29)
[2019-03-03] MEDS ORDERED: cefTRIAXone\\ROCEPHIN 1 GM in Sodium Chloride 0.9% 100 ML IVPB SCH (14:00)
--- NOTE | 2019-03-03 14:58 | PDOC.HOSPP ---
- Subjective Subjective: Feeling some better. Less pain in her left chest. Breathing is better. - Objective Vital Signs & Weight: Vital Signs (12 hours) Temp Pulse Resp BP Pulse Ox 03/03/19 12:26 98.5 F 70 18 128/71 97 03/03/19 07:55 97.7 F 55 L 16 142/79 H 97 03/03/19 04:41 98 F 60 16 155/79 H 100 Weight Weight 136 lb 3.2 oz I&O: 03/02/19 03/03/19 03/04/19 06:59 06:59 06:59 Intake Total 1290 540 Output Total 600 Balance 690 540 Result Diagrams: 03/03/19 04:27 03/03/19 04:27 Additional Labs: Accuchecks 03/03/19 10:56 POC Glucose 151 H Hospitalist ROS - Medication Medications: Active Medications Generic Name Dose Route Start Last Admin Trade Name Freq PRN Reason Stop Dose Admin Acetaminophen 650 mg 03/02/19 17:42 03/03/19 05:13 Tylenol PO 650 mg Q4H PRN Administration Headache/Fever/Mild Pain (1-3) Amlodipine Besylate 10 mg 03/03/19 09:00 03/03/19 08:56 Norvasc PO 10 mg DAILY TYRONE Administration Clonidine 0.1 mg 03/02/19 21:00 03/03/19 08:57 Catapres PO 0.1 mg BID TYRONE Administration Dicyclomine HCl 10 mg 03/03/19 08:00 03/03/19 12:29 Bentyl PO 10 mg TID-WM TYRONE Administration Folic Acid 1 mg 03/03/19 09:00 03/03/19 08:58 Folvite PO 1 mg DAILY TYRONE Administration Hydroxychloroquine Sulfate 200 mg 03/02/19 21:00 03/03/19 08:58 Plaquenil PO 200 mg BID TYRONE Administration Azithromycin 500 mg/ Sodium 250 mls @ 250 mls/hr 03/03/19 12:00 03/03/19 12: 29 Chloride IVPB 250 mls Q24HR TYRONE Administration Ceftriaxone Sodium 1 gm/ 100 mls @ 200 mls/hr 03/03/19 14:00 03/03/19 14:33 Sodium Chloride IVPB 100 mls Q24HR TYRONE Administration Lidocaine 1 patch 03/02/19 18:00 03/02/19 18:29 Lidoderm 5% Patch TD 1 patch 1800 TYRONE Administration Losartan Potassium 100 mg 03/03/19 09:00 03/03/19 08:58 Cozaar PO 100 mg DAILY TYRONE Administration Prednisone 40 mg 03/03/19 08:00 03/03/19 08:56 Prednisone PO 40 mg QAM-WM TYRONE Administration Sertraline HCl 100 mg 03/03/19 09:00 03/03/19 08:58 Zoloft PO 100 mg DAILY TYRONE Administration - Exam General Appearance: NAD, awake alert Neck: supple Heart: RRR, no murmur, no gallops, no rubs, normal peripheral pulses Respiratory: CTAB, no wheezes, no rales, no ronchi, normal chest expansion, no tachypnea, normal percussion Gastrointestinal: soft, non-tender, non-distended, normal bowel sounds, no palpable masses, no hepatomegaly, no splenomegaly, no bruit Extremities: no cyanosis, no clubbing, no edema Neurological: CN's grossly intact, normal sensation to touch, no weakness, no focal deficits, no new deficit Musculoskeletal: normal tone, normal strength, no muscle wasting Psychiatric: normal affect, normal behavior, A&O x 3 Hosp A/P (1) Pneumonia Code(s): J18.9 - PNEUMONIA, UNSPECIFIED ORGANISM Status: Acute (2) Diabetes mellitus Code(s): E11.9 - TYPE 2 DIABETES MELLITUS WITHOUT COMPLICATIONS Status: Chronic (3) Chronic pain disorder Code(s): G89.4 - CHRONIC PAIN SYNDROME Status: Chronic (4) Immunosuppressed status Code(s): D89.9 - DISORDER INVOLVING THE IMMUNE MECHANISM, UNSPECIFIED Status: Chronic (5) Systemic lupus erythematosus Code(s): M32.9 - SYSTEMIC LUPUS ERYTHEMATOSUS, UNSPECIFIED Status: Chronic - Plan Pneumonia with pleuritic pain. Immune compromised by SLE, chronic steroids. IV abx. ID consult Pending Possibility of outpatient treatment, but concern due to immune suppression. Says she was on a taper of prednisone and was down to 2 mg at home Will decrease the oral prednisone to 20 mg and continue to taper as possible. Follows with Dr. Herron, PCP is Dr. Cooper.
[2019-03-03] MEDS: Lidocaine 5% Patch TD SCH (17:42)
[2019-03-03] MEDS: HYDROcodone/Acetaminophen 10/325 mg Tablet PO PRN (22:03)
--- NOTE | 2019-03-03 22:33 | CON ---
DATE OF CONSULTATION: 03/03/2019 REASON FOR CONSULTATION: Possible pneumonia. HISTORY OF PRESENT ILLNESS: A 53-year-old with history of systemic lupus erythematosus with mild nephritis and avascular necrosis of multiple joints, which led to bilateral shoulder and hip replacements by Dr. Desouza. She is brought in at this time with new onset of pleuritic chest pain, left inferolateral chest, which was developed the morning of admission, had some dyspnea associated with it. No cough or sputum production. T-max 99.7 in the emergency room. The overall exam was not particularly remarkable except for distress when she was coughing or breathing deeply. Currently, she appears in no distress. Pain has improved. No headaches, visual symptoms, sore throat, odynophagia, or dysphagia. No cough or sputum production. Chest pain has improved. No back pain. No abdominal pain or diarrhea. No genitourinary symptoms. She refers to pain in the right hip, which is chronic. Has been worked up by Dr. Desouza and the joint was felt to be within normal limits. At this moment, she has no pain in the right hip area. PAST MEDICAL HISTORY: SLE, mostly with joint involvement, mild nephritis. Corticosteroids have been tapered and she is only receiving 2 mg daily, which certainly is not intended to suppress her immune function as more of adrenal tapering dose. History of hypertension, avascular necrosis of shoulders and hips with 4 replacements. Gastroparesis, gout, type 2 diabetes. ALLERGIES: NONE. CURRENT MEDICATIONS: 1. Tylenol. 2. Norvasc. 3. Azithromycin. 4. Ceftriaxone. 5. Catapres. 6. Bentyl. 7. Duragesic. 8. Folvite. 9. Plaquenil. 10. Insulin. 11. Pantoprazole. 12. Prednisone, now on 20 mg daily. 13. Promethazine. 14. Zoloft. PHYSICAL EXAMINATION: VITAL SIGNS: T-max 98.8 to 99.1, BP 120/71, pulse 70, respirations 18, O2 saturation 97. SKIN: Normal. No lymphadenopathy. HEENT: Ocular movements conjugate. Sclerae white. Pupils are equal. Oral cavity normal. Teeth are in pretty good shape. NECK: Supple. No jugular venous distention. No thyromegaly. LUNGS: Fairly clear breath sounds. No wheezing. CARDIAC: S1 and S2. Regular rate without murmurs. No S3. No S4. ABDOMEN: Soft. Not distended, not tender. No ascites. No bladder distention. EXTREMITIES: No joint inflammatory activity. Log roll maneuver, right hip normal. Flexion extension normal. Cognitive function appears to be intact. LABORATORY DATA: White cell count 8.1 and 3.9, hemoglobin 11, platelets 227, 84 % neutrophils. Creatinine 0.59, lactic acid 1.4, calcium 8.7. BNP 38. Albumin 4 , globulin 3.1. Lipase is 10. Microbiology, no growth thus far in 2 sets of blood cultures. Imaging includes a chest x-ray with no acute infiltrates. There is a CT angio which showed new infiltrate at the very top of the left upper lobe and in the left mid lung field. The study technical quality did not show any evidence of pulmonary embolism with fair pulmonary artery opacification. ASSESSMENT: 1. 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 2. Pleuritic pain, general malaise, fever with infiltrates identified without evidence of pulmonary embolism. DISCUSSION: The patient was in a very low dose of corticosteroids, so she was not significantly immunosuppressed and I assume this represents the usual community-acquired pneumonia, which can be treated with either doxycycline or levofloxacin for discharge planning in the outpatient setting. It seems to be comfortable enough to allow discharge planning and I can follow her up in the clinic and follow up her chest x-rays to resolution. The main concern here would be with thromboembolism and that seems to have been ruled out. The other opportunistic processes such as fungal processes, particularly cryptococcus pulmonary disease and malignancy are less likely. Job ID: [id number] [facility]
[2019-03-04] MEDS: HYDROcodone/Acetaminophen 10/325 mg Tablet PO PRN (04:18)
[2019-03-04] MEDS ORDERED: predniSONE 20 MG TAB PO SCH (08:00)
[2019-03-04 08:17] VITALS: TEMP 98.7
[2019-03-04] MEDS: Dicyclomine 10 MG CAP PO SCH ×2 (08:31→13:03)
[2019-03-04] MEDS: Losartan 25 MG TAB PO SCH (08:31)
[2019-03-04] MEDS: Folic Acid 1 MG TAB PO SCH (08:31)
[2019-03-04] MEDS: Hydroxychloroquine Sulfate 200 MG TAB PO SCH (08:31)
[2019-03-04] MEDS: Amlodipine 10 MG TAB PO SCH (08:31)
[2019-03-04] MEDS: cloNIDine 0.1 MG TAB PO SCH (08:31)
[2019-03-04 12:14] VITALS: BP 118/65
[2019-03-04] MEDS: Azithromycin 500 MG in Sodium Chloride 0.9% 250 ML 250 ML IVPB SCH (13:03)
--- NOTE | 2019-03-05 23:48 | DIS ---
DATE OF ADMISSION: 03/02/2019 DATE OF DISCHARGE: 03/04/2019 DISCHARGE DIAGNOSES: 1. Left-sided pneumonia. 2. Left-sided pleuritic chest pain. 3. Systemic lupus. 4. Diabetes. 5. Chronic pain disorder. HISTORY OF PRESENT ILLNESS: This patient is a 53-year-old female with a history of chronic pain syndrome and lupus, followed by Dr. Herron as an outpatient. The patient presented to the hospital with a complaint of some left-sided chest pain. X-rays confirmed that the patient had left-sided infiltrate. Subsequent CTA of the chest revealed left upper lobe pneumonia without other findings. HOSPITAL COURSE: The patient was admitted to the hospital. She was given high- dose steroids, although she has been tapered down on 2 mg daily for stress dose. She was started on broad-spectrum antibiotics with concern for her being immunocompromised due to underlying connective tissue disease. She was maintained on her pain medications. She was seen in consultation by Dr. Muhammad who felt the patient's immunosuppression was not significant enough to warrant anything beyond outpatient therapy. Therefore, she was felt to be stable for discharge with oral antibiotics. PHYSICAL EXAMINATION: On the day of discharge, VITAL SIGNS: Temperature 98.7, pulse 61, respirations 16, BP 118/65. GENERAL: She is age-appropriate, actually quite healthy appearing female, in no distress. HEART: Regular rate and rhythm. LUNGS: Clear bilaterally. ABDOMEN: Soft, nontender, and nondistended. EXTREMITIES: No cyanosis, clubbing, or edema. DISPOSITION: The patient is discharged to home. DIET: She is to have a regular diet her ACTIVITY: Activity level is as tolerated. MEDICATIONS: She will have Levaquin 750 mg one p.o. daily for 5 days. She will continue with her usual home medication regimen, otherwise, please see the medication discharge list for further details. FOLLOWUP: She is to follow up with her primary care provider, Dr. Lynnette Cooper in the next available appointment and she can return to the hospital should she have any problems prior to that time. Job ID: [id number] [facility]
[2019-03-09] MEDS ORDERED: cloNIDine 0.1mg/24 Hour PATCH TD SCH (09:00)
== END 2019-03-04 12:48 | disposition home or self-care (01) ==
LOC: ERS 09:51 → ERHOLD 12:47 → 2SW 14:40
PROVIDERS: ADMIT Internal Medicine; ATTEND Internal Medicine
DX: J18.1 Lobar pneumonia, unspecified organism (principal); G89.4 Chronic pain syndrome; M10.9 Gout, unspecified; E11.43 Type 2 diabetes mellitus with diabetic autonomic (poly)neuropathy; K31.84 Gastroparesis; M06.9 Rheumatoid arthritis, unspecified; K21.9 Gastro-esophageal reflux disease without esophagitis; M32.19 Other organ or system involvement in systemic lupus erythematosus; M32.14 Glomerular disease in systemic lupus erythematosus; I10 Essential (primary) hypertension; Z79.4 Long term (current) use of insulin; Z79.52 Long term (current) use of systemic steroids; Z79.899 Other long term (current) drug therapy; Z96.643 Presence of artificial hip joint, bilateral; Z96.611 Presence of right artificial shoulder joint; Z96.612 Presence of left artificial shoulder joint; Z96.653 Presence of artificial knee joint, bilateral
CPT/HCPCS: 36415; 36416; 71045; 71275; 80048; 80053; 82550; 83605; 83690; 83880; 84484; 85025; 87040; 93005; 96361; 96365; 96366; 96368; 96375; 96376; G0378; J0456; J0696; J2270; J2405; J3490; J7050; J7512; Q9966

== ENCOUNTER 2019-04-22 11:00 | Observation (INO) | payer BC ==
[2019-04-22] MEDS ORDERED: Lorazepam 2 MG/ML VIAL ONE (11:34)
[2019-04-22 11:38] LABS: #Basophils 0.1 thou/uL (0.0-0.2); #Monocytes 0.5 thou/uL (0.11-0.59); #Neutrophils 2.9 thou/uL (1.40-6.50); %Basophils 1.5 % (0.0-1.0); %Eosinophils 0.3 % (0.0-10.0); %Lymphocytes 22.5 % (21.0-51.0); %Monocytes 11.8 % (0.0-10.0); %Neutrophils 63.9 % (42.0-75.0); Hemoglobin 12.2 g/dL (12.0-16.0); Mean Corpuscular HGB CONC 32.1 g/dL (32.0-36.0); Mean Corpuscular Hemoglobin 25.8 pg (27.0-31.0); Mean Corpuscular Volume 80.3 fL (78.0-98.0); Mean Platelet Volume 8.6 fL (7.4-10.4); Platelet Count 208 thou/uL (130-400); RBC Distribution Width 12.6 % (11.5-14.5); Red Blood Cell (RBC) Count 4.72 mill/uL (4.20-5.40); White Blood Cell (WBC) Count 4.5 thou/uL (4.8-10.8)
--- NOTE | 2019-04-22 12:03 | CT ---
CT ANGIOGRAM THORAX WITH CONTRAST: (CTA pulmonary angiogram) DATE: 04/22/2019 HISTORY: 53-year-old female with dyspnea and chest pain TECHNIQUE: IV injection of iodinated contrast. Scan acquisition timing attempted to coincide with iodinated contrast bolus reaching maximal density in pulmonary arteries. 3-D MIP reconstructions. FINDINGS: Pulmonary thromboembolism: None. Lungs: Clear. Pneumothorax: None. Pleural effusion: None. Thoracic aorta: No aneurysm or dissection. Mediastinum: No lymphadenopathy or other mass. Odalis: No lymphadenopathy or other mass. IMPRESSION: Normal.
--- NOTE | 2019-04-22 12:04 | RAD ---
RADIOGRAPH CHEST 1 VIEW: DATE: 04/22/2019 HISTORY: 53-year-old female with tachypnea FINDINGS: There is no airspace density, pulmonary edema, or pneumothorax. The lateral costophrenic angles are n ot effaced. IMPRESSION: No acute pulmonary findings.
[2019-04-22 12:07] LABS: ALT (SGPT) 21 U/L (8-55); AST (SGOT) 33 U/L (5-34); Albumin 4.1 g/dL (3.5-5.0); Alkaline Phosphatase 61 U/L (40-110); Anion Gap 12 mmol/L (10-20); BUN (Urea Nitrogen) 8 mg/dL (9.8-20.1); Bilirubin, Total 0.8 mg/dL (0.2-1.2); Calc. Creatinine Clearance 0 mL/min (70-130); Calcium 9.1 mg/dL (7.8-10.44); Carbon Dioxide 28 mmol/L (22-29); Chloride 102 mmol/L (98-107); Estimated GFR-MDRD Greater than 90; Globulin 3.7 g/dL (2.4-3.5); Glucose 88 mg/dL (70-105); Lipase 13 U/L (8-78); Magnesium 1.8 mg/dL (1.6-2.6); Protein, Total 7.8 g/dL (6.0-8.3); Sodium 138 mmol/L (136-145)
[2019-04-22] MEDS ORDERED: ISOVUE-370 76%-LOCM 1 ML ONE (12:15)
[2019-04-22 14:36] LABS: Bacteria/HPF None Seen HPF (None Seen); Bilirubin Negative (Negative); Blood, Urine 1+ (Negative); Clarity Clear (Clear); Glucose, Urine (Dipstick) Normal (Negative); Leukocyte Negative Leu/uL (Negative); Nitrite Negative (Negative); Protein, Urine (Dipstick) Negative (Neg-Trace); Squamous Epithelial 0-3 HPF (0-3); Urobilinogen Normal mg/dL (Less than 2); WBC/HPF 0-3 HPF (0-3)
[2019-04-22] MEDS ORDERED: Ketorolac Tromethamine 30 MG/ML VIAL ONE (15:11)
[2019-04-22] MEDS ORDERED: Morphine 4 MG/ML VIAL ONE (15:11)
[2019-04-22] MEDS ORDERED: Aspirin Chewable 81 MG TAB ONE (17:04)
[2019-04-22 17:23] LABS: Lactic Acid 1.1 mmol/L (0.5-2.2)
[2019-04-22 19:55] VITALS: BMI 20.2
[2019-04-22] MEDS ORDERED: Acetaminophen 325 MG TAB PO PRN (19:56)
[2019-04-22] MEDS ORDERED: Ondansetron ODT 4 MG TAB SL PRN (19:56)
[2019-04-22] MEDS ORDERED: Ondansetron PF 4 MG/2 ML Vial IVP PRN (19:56)
[2019-04-22] MEDS: Ketorolac Tromethamine 30 MG/ML VIAL IVP PRN (21:04)
[2019-04-22 22:23] LABS: Troponin I Less than 0.010 ng/mL (< 0.028)
[2019-04-23] MEDS: Acetaminophen/Codeine 30-300mg Tablet PO PRN (02:46)
[2019-04-23] MEDS: Ketorolac Tromethamine 30 MG/ML VIAL IVP PRN (03:05)
[2019-04-23] MEDS ORDERED: Morphine 4 MG/ML VIAL SLOW IVP SCH (05:00)
[2019-04-23] MEDS ORDERED: cloNIDine 0.1mg/24 Hour PATCH TD SCH (09:00)
[2019-04-23] MEDS: Amlodipine 10 MG TAB PO SCH ×2 (10:13→20:29)
[2019-04-23] MEDS: Losartan 25 MG TAB PO SCH (10:13)
[2019-04-23] MEDS: cloNIDine 0.1 MG TAB PO SCH ×2 (10:13→20:28)
[2019-04-23] MEDS: Gabapentin 300 MG CAP PO SCH ×3 (10:13→20:29)
[2019-04-23] MEDS: Dicyclomine 10 MG CAP PO SCH ×2 (10:14→16:29)
[2019-04-23] MEDS: HYDROcodone/Acetaminophen 10/325 mg Tablet PO PRN ×2 (10:14→20:29)
[2019-04-23] MEDS: Hydroxychloroquine Sulfate 200 MG TAB PO SCH ×2 (10:14→20:29)
[2019-04-23] MEDS: Lidocaine 5% Patch TD SCH (10:14)
[2019-04-23] MEDS: Folic Acid 1 MG TAB PO SCH (10:14)
[2019-04-23] MEDS: predniSONE 1 MG TAB PO SCH (10:16)
--- NOTE | 2019-04-23 10:17 | HP ---
CHIEF COMPLAINT: Chest pain. HISTORY OF PRESENT ILLNESS: The patient is a 53-year-old female with a history of lupus and some other autoimmune type syndromes and musculoskeletal syndromes, who was here in February with pneumonia. She was having left lower chest pain at that time and appeared to be some density on her imaging consistent with a possible pneumonia, although I felt like the patient was probably having more musculoskeletal symptoms at that time when she was discharged from the hospital. She said the pain on her left side persisted for a time and then it ultimately resolved, but as it was resolving, she started developing pain on the opposite side in a similar nature. It got better and then it came back. On this occasion, she reports that it is sharp. It is also very positional and feels like when she is lying back that it is difficult for her to even breathe and it is worse when she is taking a deep breath. She is currently on hydrocodone, gabapentin, and a fentanyl patch and says these are not relieving her pain. In fact, she has had morphine here in the hospital and says that she has takes the edge off enough to allow her to sleep. She describes it as jabbing or stabbing and is at worst 10/10. REVIEW OF SYSTEMS: She does report some chills, which she says are more chronic in nature. She has some right lower extremity hypoesthesia, which she also describes as chronic and some constipation, which she relates to her pain medications. PAST MEDICAL HISTORY: Lupus with associated musculoskeletal symptoms, history of costochondritis, hypertension, avascular necrosis, gastroparesis, back problems related to discopathy, gout, diet-controlled diabetes mellitus, chronic pain syndrome, antiphospholipid antibody syndrome, rheumatoid arthritis, and depression. She is followed by Dr. Herron as her forestry adviser and they are currently in the process of weaning her off steroid and she is down to 1 mg. CURRENT MEDICATIONS: 1. Clonidine 0.1 mg b.i.d. p.r.n. 2. Folic acid 1 mg q.a.m. 3. Dicyclomine 10 mg t.i.d. 4. Orencia 250 mg IV monthly. 5. Amlodipine 5 mg b.i.d., with an additional 5 mg p.r.n. 6. Zoloft 100 mg daily. 7. Prednisone 1 mg daily. 8. Plaquenil 200 mg b.i.d. 9. Gabapentin 300 mg t.i.d. 10. Duragesic patch 25 mcg q.72 hours. 11. Losartan 100 mg daily. 12. [place] 10/325 q.6 hours p.r.n. PAST SURGICAL HISTORY: Hysterectomy, some orthopedic procedures, and tonsillectomy. FAMILY HISTORY: Mother had CHF, hypertension. Father; hypertension, coronary artery disease, lupus, and prostate cancer. Sister with breast cancer. SOCIAL HISTORY: Non-smoker. Denies alcohol or drug use. Lives at home alone. Full Code. Surrogate decision make would be her mother should that become necessary. ALLERGIES: NONE. PHYSICAL EXAMINATION: VITAL SIGNS: Temperature is 98.2, pulse 60, respirations 16, O2 saturation 98% on room air, and blood pressure 127/67. GENERAL APPEARANCE: Age-appropriate female, in no distress. She is awake, alert, oriented, pleasant, cooperative. HEENT: PERRL. No OP lesions. NECK: Supple and symmetric without lymphadenopathy, JVD, or carotid bruits. HEART: Regular rate and rhythm without murmurs, gallops, or rubs. LUNGS: Clear to auscultation bilaterally with no wheezes or rales. ABDOMEN: Soft, nontender, and nondistended. Positive bowel sounds. No masses. No organomegaly. EXTREMITIES: No cyanosis, clubbing, or edema. MUSCULOSKELETAL: Reveals tenderness to palpation in the right lower lateral rib starting at the midaxillary line going anteriorly. There are no anatomic abnormalities noted on palpation. PSYCH: The patient appears to have relatively normal affect and behavior. NEURO: Cranial nerves intact. Normal cognition. No focal deficits. LABORATORY DATA: White count 4.5, hemoglobin is 12.2, and platelets 208. Chemistries normal with the exception of BUN low at 8 and otherwise normal. Lipase is 13. Magnesium is 1.8. Lactic acid was 2.1. Urinalysis shows specific gravity of greater than 1.060, 1+ ketones, 7 to 10 red cells, 0 to 3 white cells. IMAGING DATA: CTA of the chest and thorax is negative. Chest x-ray negative. IMPRESSION AND PLAN: 1. Right lateral chest pain. It appears to be more neuropathic or musculoskeletal in nature. It definitely does not appear to be cardiac in nature. We will be able to transfer the patient off telemetry to a regular room to discuss and the fact that we do not want to increase her prednisone at this point, and she has been successfully tapering. Certainly, the taper may be masking some other inflammatory issues. However, we want to try to work around that. We will continue with pain medications and we will offer her a lidocaine patch as well. We will continue with her other autoimmune-related medications. 2. Hypertension. Continue with her losartan and Norvasc. 3. History of depression. Continue with her sertraline. Job ID: [id number] [facility]
--- NOTE | 2019-04-23 11:03 | ULT ---
RENAL ULTRASOUND: INDICATION: Nephrolithiasis. Flank pain. FINDINGS: The right kidney shows mild cortical thinning. There is mild right hydronephrosis. Small superior p ole cyst on the right. The left kidney is unremarkable. The urinary bladder is mildly distended and unremarkable. Bilateral ureteral jets were documented. IMPRESSION: Mild right hydronephrosis. POS: C
[2019-04-23] MEDS ORDERED: Ondansetron PF 4 MG/2 ML Vial IVP PRN (11:47)
[2019-04-23] MEDS: Lidocaine Patch Removal 1 EACH TOP SCH (20:36)
[2019-04-24] MEDS: HYDROcodone/Acetaminophen 10/325 mg Tablet PO PRN ×3 (03:12→15:32)
[2019-04-24] MEDS: Acetaminophen/Codeine 30-300mg Tablet PO PRN ×3 (06:16→20:55)
[2019-04-24] MEDS: Amlodipine 10 MG TAB PO SCH ×2 (09:02→20:54)
[2019-04-24] MEDS: Dicyclomine 10 MG CAP PO SCH ×3 (09:02→17:23)
[2019-04-24] MEDS: Hydroxychloroquine Sulfate 200 MG TAB PO SCH ×2 (09:03→20:54)
[2019-04-24] MEDS: predniSONE 1 MG TAB PO SCH (09:03)
[2019-04-24] MEDS: Losartan 25 MG TAB PO SCH (09:03)
[2019-04-24] MEDS: cloNIDine 0.1 MG TAB PO SCH ×2 (09:03→20:53)
[2019-04-24] MEDS: Gabapentin 300 MG CAP PO SCH ×3 (09:03→20:54)
[2019-04-24] MEDS: Folic Acid 1 MG TAB PO SCH (09:03)
[2019-04-24] MEDS: Lidocaine 5% Patch TD SCH (09:04)
--- NOTE | 2019-04-24 20:04 | PDOC.HOSPP ---
- Subjective Subjective: Continues to have significant pain. The heating pad does seem to help some. The lidoderm patch helps as well. Still has difficulty lying down due to pain. - Objective Vital Signs & Weight: Vital Signs (12 hours) Temp Pulse Resp BP BP Pulse Ox 04/24/19 19:04 98.7 F 64 16 111/62 98 04/24/19 15:19 98.5 F 71 18 104/59 L 99 04/24/19 11:26 98.4 F 66 18 97/56 L 99 04/24/19 09:03 111/60 04/24/19 09:02 65 111/60 Weight Admit Weight 136 lb 12.8 oz Weight 136 lb 12.8 oz I&O: 04/23/19 04/24/19 04/25/19 06:59 06:59 06:59 Intake Total 300 238 0497 Output Total 350 650 Balance 799 400 9853 Result Diagrams: 04/22/19 11:26 04/22/19 11:26 Hospitalist ROS - Medication Medications: Active Medications Generic Name Dose Route Start Last Admin Trade Name Freq PRN Reason Stop Dose Admin Acetaminophen/Codeine Phosphate 1 tab 04/22/19 20:38 04/24/19 12:35 Tylenol #3 PO 1 tab Q4H PRN Administration Moderate Pain (4-6) Hydrocodone Bitart/Acetaminophen 1 tab 04/23/19 08:46 04/24/19 15:32 Hiram 10/325 PO 1 tab Q6HR PRN Administration Severe Pain (7-10) Amlodipine Besylate 5 mg 04/23/19 09:00 04/24/19 09:02 Norvasc PO 5 mg BID TYRONE Administration Clonidine 0.1 mg 04/23/19 09:00 04/24/19 09:03 Catapres PO 0.1 mg BID TYRONE Administration Dicyclomine HCl 10 mg 04/23/19 12:00 04/24/19 17:23 Bentyl PO 10 mg TID-WM TYRONE Administration Folic Acid 1 mg 04/23/19 09:00 04/24/19 09:03 Folvite PO 1 mg QAM TYRONE Administration Gabapentin 300 mg 04/23/19 09:00 04/24/19 15:33 Neurontin PO 300 mg TID TYRONE Administration Hydroxychloroquine Sulfate 200 mg 04/23/19 09:00 04/24/19 09:03 Plaquenil PO 200 mg BID TYRONE Administration Ketorolac Tromethamine 15 mg 04/22/19 20:38 04/23/19 03:05 Toradol IVP 15 mg Q6H PRN Administration Pain Lidocaine 1 patch 04/23/19 09:00 04/24/19 09:04 Lidoderm 5% Patch TD 1 patch DAILY TYRONE Administration Losartan Potassium 100 mg 04/23/19 09:00 04/24/19 09:03 Cozaar PO 100 mg DAILY TYRONE Administration Miscellaneous Medication 1 each 04/23/19 21:00 04/23/19 20:36 Lidocaine Patch Removal TOP Not Given 2100 TYRONE Ondansetron HCl 4 mg 04/23/19 11:47 04/23/19 12:03 Zofran IVP 4 mg Q6H PRN Administration Nausea/Vomiting Prednisone 1 mg 04/23/19 09:00 04/24/19 09:03 Prednisone PO 1 mg QAM TYRONE Administration Sertraline HCl 100 mg 04/23/19 09:00 04/24/19 09:04 Zoloft PO 100 mg DAILY TYRONE Administration Sodium Chloride 10 ml 04/22/19 21:00 04/24/19 09:04 Flush - Normal Saline IVF 10 ml Q12HR TYRONE Administration Sodium Chloride 10 ml 04/22/19 19:57 04/23/19 12:03 Flush - Normal Saline IVF 10 ml PRN PRN Administration Saline Flush - Exam General Appearance: NAD, awake alert Heart: RRR, no murmur, no gallops, no rubs, normal peripheral pulses Respiratory: CTAB, no wheezes, no rales, no ronchi, normal chest expansion, no tachypnea, normal percussion Gastrointestinal: soft, non-tender, non-distended, normal bowel sounds, no palpable masses, no hepatomegaly, no splenomegaly, no bruit Extremities: no edema Skin - other findings: No lesions. Lidoderm patch on right posterior flank. Musculoskeletal - other findings: TTP to the lightest touch over the right lower anterolat chest area. Hosp A/P (1) Chest pain Code(s): R07.9 - CHEST PAIN, UNSPECIFIED Status: Acute (2) Anxiety and depression Code(s): F41.9 - ANXIETY DISORDER, UNSPECIFIED; F32.9 - MAJOR DEPRESSIVE DISORDER, SINGLE EPISODE, UNSPECIFIED Status: Chronic (3) Chronic pain disorder Code(s): G89.4 - CHRONIC PAIN SYNDROME Status: Chronic (4) Diabetes mellitus Code(s): E11.9 - TYPE 2 DIABETES MELLITUS WITHOUT COMPLICATIONS Status: Chronic (5) Hypertension Code(s): I10 - ESSENTIAL (PRIMARY) HYPERTENSION Status: Chronic (6) Systemic lupus erythematosus Code(s): M32.9 - SYSTEMIC LUPUS ERYTHEMATOSUS, UNSPECIFIED Status: Chronic - Plan Her symptoms are unchanged. She wants to stay another day because she doesn't think she can manage with this pain. Renal US with minimal R hydro. She has had 15 CT scans in the past several years. May benefit from a CT stone protocol, but she has had large amount of radiation exposure. I don't suspect this is related to the very mild hydronephrosis. This is exactly the same type of pain she had previously when she was here with pneumonia. Suspect she has a very low pain threshold from being on chronic pain meds. She says she lives with pain every day but can manage the acute pain episodes like this. She would benefit from steroids, but she has been weaning these and does not want to try those now. Will continue with meds today. Anticipate discharge in the morning. May consider repeat Right renal US v. discharge with OP follow up with Dr. Mejia.
[2019-04-24] MEDS: Lidocaine Patch Removal 1 EACH TOP SCH (21:09)
[2019-04-25] MEDS: HYDROcodone/Acetaminophen 10/325 mg Tablet PO PRN (03:58)
[2019-04-25] MEDS: Dicyclomine 10 MG CAP PO SCH ×2 (08:38→12:18)
[2019-04-25] MEDS: cloNIDine 0.1 MG TAB PO SCH (08:38)
[2019-04-25] MEDS: Amlodipine 10 MG TAB PO SCH (08:38)
[2019-04-25] MEDS: Losartan 25 MG TAB PO SCH (08:39)
[2019-04-25] MEDS: Gabapentin 300 MG CAP PO SCH (08:39)
[2019-04-25] MEDS: Lidocaine 5% Patch TD SCH (08:39)
[2019-04-25] MEDS: Folic Acid 1 MG TAB PO SCH (08:39)
[2019-04-25] MEDS: Hydroxychloroquine Sulfate 200 MG TAB PO SCH (08:39)
[2019-04-25] MEDS: predniSONE 1 MG TAB PO SCH (08:40)
[2019-04-25 11:14] LABS: Bilirubin Negative (Negative); Blood, Urine Negative (Negative); Clarity Clear (Clear); Glucose, Urine (Dipstick) Normal (Negative); Leukocyte Negative Leu/uL (Negative); Nitrite Negative (Negative); Protein, Urine (Dipstick) 10 mg/dL (Neg-Trace); Squamous Epithelial 0-3 HPF (0-3); Transitional Epithelial 0-3 HPF (None Seen); Urobilinogen Normal mg/dL (Less than 2); WBC/HPF 0-3 HPF (0-3)
[2019-04-25 11:34] LABS: Bacteria/HPF Rare-Few HPF (None Seen); RBC/HPF 0-3 HPF (0-3)
[2019-04-25 12:09] VITALS: BP 94/57; TEMP 98.9
[2019-04-29] MEDS ORDERED: cloNIDine 0.1mg/24 Hour PATCH TD SCH (09:00)
== END 2019-04-25 15:00 | disposition home or self-care (01) ==
LOC: ERS 11:00 → 2SW 19:17
PROVIDERS: ADMIT Internal Medicine; ATTEND Internal Medicine
DX: R07.9 Chest pain, unspecified (principal); M32.9 Systemic lupus erythematosus, unspecified; I10 Essential (primary) hypertension; E11.43 Type 2 diabetes mellitus with diabetic autonomic (poly)neuropathy; K31.84 Gastroparesis; G89.4 Chronic pain syndrome; D68.61 Antiphospholipid syndrome; M06.9 Rheumatoid arthritis, unspecified; F32.9 Major depressive disorder, single episode, unspecified; F41.9 Anxiety disorder, unspecified; N13.30 Unspecified hydronephrosis; Z79.52 Long term (current) use of systemic steroids; Z79.891 Long term (current) use of opiate analgesic; Z79.899 Other long term (current) drug therapy; Z96.643 Presence of artificial hip joint, bilateral; Z96.652 Presence of left artificial knee joint
CPT/HCPCS: 36415; 36416; 71045; 71275; 76770; 80053; 81001; 81003; 81015; 83605; 83690; 83735; 84484; 85025; 93005; 94760; 96361; 96374; 96375; 96376; G0378; J1885; J2060; J2270; J2405; J7512; Q9966

== ENCOUNTER 2019-08-31 09:10 | Outpatient (CLI) | payer BC ==
--- NOTE | 2019-08-31 10:26 | BD ---
DEXA BONE DENSITY EXAM: HISTORY: A 54-year-old postmenopausal female for screening. FINDINGS: Exam: DEXA Bone Density Lumbar Spine: BMD (g/cm2) L1 0.773 T-Score: -2.0 L2 0.809 T-Score: -2.0 L3 0.875 T-Score: -1.9 L4 0.830 T-Score: -2.1 L1-L4 0.824 T-Score: -2.0 Left Forearm: Distal 1/3 0.625 T-Score: -1.2 Total 0.496 T-Score: -1.5 IMPRESSION: Osteopenia. POS: [facility]
== END 2019-08-31 09:11 | disposition home or self-care (01) ==
LOC: BICMAMMO 09:10
PROVIDERS: ATTEND Internal Medicine Rheumatology
DX: M81.8 Other osteoporosis without current pathological fracture (principal); M85.89 Other specified disorders of bone density and structure, multiple sites
CPT/HCPCS: 77080

== ENCOUNTER 2019-09-28 20:51 | Emergency (ER) | payer BC ==
[2019-09-28] MEDS ORDERED: Morphine 4 MG/ML VIAL ONE (21:14)
--- NOTE | 2019-09-28 21:54 | CT ---
CT lumbar spine noncontrast: DATE: 09/28/2019 HISTORY: 54-year-old female with acute traumatic low back pain after fall FINDINGS: 5 lumbar-type vertebrae. No spondylolysis or spondylolisthesis. Vertebral body heights are maintained . No hematoma in the perivertebral spaces. No central spinal canal stenosis at any level. No high-grade neural foraminal stenosis at any level. No fracture lucency. At L5-S1, there is moderate disc space narrowing, vacuum disc phenomenon, retrolisthesis of L5 on S1, and prominent anterior inferior endplate sclerosis with Schmorl's nodes, of L5. All the rest of the levels are normal. IMPRESSION: 1. No compression fracture. 2. Moderate degenerative disc disease at L5-S1. 3. The rest of the levels are normal.
[2019-09-28] MEDS ORDERED: Ketorolac Tromethamine 30 MG/ML VIAL ONE (22:15)
== END 2019-09-28 22:34 | disposition home or self-care (01) ==
LOC: ERS 20:51
DX: S30.0XXA Contusion of lower back and pelvis, initial encounter (principal); I10 Essential (primary) hypertension; M10.9 Gout, unspecified; F32.9 Major depressive disorder, single episode, unspecified; W01.0XXA Fall on same level from slipping, tripping and stumbling without subsequent striking against object, initial encounter
CPT/HCPCS: 72131; 96372; J1885; J2270

== ENCOUNTER 2019-10-24 13:47 | Outpatient (CLI) | payer BC ==
--- NOTE | 2019-10-24 14:46 | ULT ---
BILATERAL LOWER EXTREMITY VENOUS DOPPLER ULTRASOUND: Date: 10/24/2019 COMPARISON: None. HISTORY: Edema, swelling, right leg pain following a fall. TECHNIQUE: Multiplanar Easley scale sonographic imaging of the venous structures of bilateral lower extremities ob tained with color flow and spectral analysis. FINDINGS: Bilateral common femoral veins, greater saphenous veins, profunda femoral veins, femoral veins, popli teal veins, and posterior tibial veins are patent. Normal blood flow, augmentation, and compression w ithin the deep venous system bilaterally. No evidence for deep venous thrombosis on either side. IMPRESSION: No evidence for deep venous thrombosis of either lower extremity. POS: [facility]
== END 2019-10-24 13:48 | disposition home or self-care (01) ==
LOC: BICULT 13:47
PROVIDERS: ATTEND Internal Medicine Rheumatology
DX: R60.0 Localized edema (principal); D68.61 Antiphospholipid syndrome; M32.9 Systemic lupus erythematosus, unspecified
CPT/HCPCS: 93970

== ENCOUNTER 2020-02-01 13:38 | Emergency (ER) | payer BC ==
[2020-02-01] MEDS ORDERED: Ketorolac Tromethamine 30 MG/ML VIAL ONE (14:37)
[2020-02-01 14:49] LABS: #Lymphocytes 1.3 thou/uL (1.20-3.40); #Monocytes 0.5 thou/uL (0.11-0.59); #Neutrophils 2.1 thou/uL (1.40-6.50); %Basophils 1.2 % (0.0-1.0); %Eosinophils 0.1 % (0.0-10.0); %Neutrophils 52.7 % (42.0-75.0); Hemoglobin 11.9 g/dL (12.0-16.0); Mean Corpuscular HGB CONC 31.7 g/dL (32.0-36.0); Mean Corpuscular Hemoglobin 26.1 pg (27.0-31.0); Mean Corpuscular Volume 82.3 fL (78.0-98.0); Mean Platelet Volume 8.7 fL (7.4-10.4); Platelet Count 224 thou/uL (130-400); RBC Distribution Width 12.8 % (11.5-14.5); Red Blood Cell (RBC) Count 4.57 mill/uL (4.20-5.40); White Blood Cell (WBC) Count 3.9 thou/uL (4.8-10.8)
--- NOTE | 2020-02-01 14:54 | RAD ---
XR Chest 1 View Portable HISTORY: Right-sided chest pain COMPARISON: 04/22/2019 FINDINGS: The heart size is stable. Left-sided humeral head prostheses is again seen. The lungs are w ell expanded without focal areas of consolidation, pneumothorax or pleural effusions. IMPRESSION: No radiographic evidence of acute cardiopulmonary process.
[2020-02-01 15:23] LABS: ALT (SGPT) 15 U/L (8-55); AST (SGOT) 21 U/L (5-34); Albumin 3.8 g/dL (3.5-5.0); Alkaline Phosphatase 58 U/L (40-110); Anion Gap 12 mmol/L (10-20); BUN (Urea Nitrogen) 13 mg/dL (9.8-20.1); Bilirubin, Total 0.4 mg/dL (0.2-1.2); Calc. Creatinine Clearance 0 mL/min (70-130); Calcium 8.4 mg/dL (7.8-10.44); Carbon Dioxide 27 mmol/L (22-29); Chloride 105 mmol/L (98-107); Estimated GFR-MDRD Greater than 90; Globulin 3.5 g/dL (2.4-3.5); Glucose 87 mg/dL (70-105); Lipase 14 U/L (8-78); Potassium 3.4 mmol/L (3.5-5.1); Protein, Total 7.3 g/dL (6.0-8.3); Sodium 141 mmol/L (136-145)
[2020-02-01 16:39] LABS: Bacteria/HPF None Seen HPF (None Seen); Bilirubin Negative (Negative); Blood, Urine 2+ (Negative); Clarity Clear (Clear); Glucose, Urine (Dipstick) Normal (Negative); Ketone, Urine Negative (Negative); Leukocyte Negative Leu/uL (Negative); Mucous/LPF 1+ LPF (<2+); Nitrite Negative (Negative); Protein, Urine (Dipstick) 10 mg/dL (Neg-Trace); Specific Gravity, Urine 1.027 (1.002-1.036); Squamous Epithelial None Seen HPF (0-3); Urobilinogen Normal mg/dL (Less than 2); WBC/HPF 0-3 HPF (0-3)
== END 2020-02-01 17:44 | disposition home or self-care (01) ==
LOC: ERS 13:38
DX: R10.9 Unspecified abdominal pain (principal); R31.9 Hematuria, unspecified; M87.9 Osteonecrosis, unspecified; I10 Essential (primary) hypertension; D64.9 Anemia, unspecified; K31.84 Gastroparesis; M94.0 Chondrocostal junction syndrome [Tietze]; M06.9 Rheumatoid arthritis, unspecified; F32.9 Major depressive disorder, single episode, unspecified; Z79.899 Other long term (current) drug therapy; Z79.1 Long term (current) use of non-steroidal anti-inflammatories (NSAID)
CPT/HCPCS: 36415; 71045; 80053; 81003; 81015; 83690; 85025; 96372; J1885

== ENCOUNTER 2020-03-15 07:49 | Outpatient (CLI) | payer BC ==
--- NOTE | 2020-03-15 09:23 | CT ---
CTA ABDOMEN: INDICATIONS: Postprandial abdominal pain in the epigastric region TECHNIQUE: Multiple CTA images were obtained of the abdomen utilizing IV contrast and 3D reformatted imaging. Ax ial, coronal and sagittal reformatted images were constructed from the raw data. FINDINGS: ABDOMEN: Lung bases: Clear Liver: Diffuse fatty infiltration Gallbladder: Normal appearing. Pancreas: Normal. Adrenal glands: Normal. Spleen: Normal. Kidneys and ureters: There is a 1.3 cm cyst involving the superior pole of the right kidney. The left kidney is normal-appearing. Lymph nodes:No lymphadenopathy. Free fluid in abdomen:No free fluid is evident. Small and large bowel: Normal Appendix:Not definitely seen Osseous structures: There is moderate disc degenerative disease at L5-S1. Soft tissues:Normal. VASCULATURE: Aorta: There are mild vascular calcifications seen involving the visualized vasculature. No aortic st enosis, occlusion or aneurysmal formation is demonstrated. Celiac:Normal in caliber without evidence of stenosis or occlusion. SMA:Normal in caliber without evidence of stenosis or occlusion. Renal arteries:The right renal artery is duplicated. Both renal arteries are patent. The left renal a rtery is a single renal artery. This is widely patent. DIAN:Normal in caliber without evidence of stenosis or occlusion. Right common iliac artery: Normal in caliber without evidence of stenosis or occlusion. Left common iliac artery: Normal in caliber without evidence of stenosis or occlusion. Additional findings: None. IMPRESSION: 1. No hemodynamically significant stenosis, occlusion or aneurysmal formation. 2. Right renal cyst
[2020-03-15] MEDS ORDERED: Iopamidol 370 76% 100 ML VIAL ONE (14:13)
== END 2020-03-15 07:50 | disposition home or self-care (01) ==
LOC: BICCT 07:49
PROVIDERS: ATTEND Internal Medicine Gastroenterology
DX: R10.13 Epigastric pain (principal); R63.4 Abnormal weight loss; N28.1 Cyst of kidney, acquired
CPT/HCPCS: 36415; 74175; 80053; 80061; 82306; 83540; 84439; 84443; 85025; Q9967

== ENCOUNTER 2020-03-30 12:07 | Outpatient (CLI) | payer BC ==
--- NOTE | 2020-03-30 16:56 | NM ---
HEPATOBILIARY SCAN: HISTORY:Epigastric abdominal pain RADIOPHARMACEUTICAL: 5 mCi Technetium 99m Mebrofenin injected intravenously FINDINGS: There is normal tracer extraction by the liver with normal excretion into the biliary tracts and smal l bowel loops and normal filling of the gallbladder. The calculated gallbladder ejection fraction following an oral fatty meal measures 81%. IMPRESSION:Normal exam.
== END 2020-03-30 12:08 | disposition home or self-care (01) ==
LOC: NM 12:07
PROVIDERS: ATTEND Internal Medicine Gastroenterology
DX: R10.13 Epigastric pain (principal)
CPT/HCPCS: 78227; A9537

== ENCOUNTER 2020-04-07 07:22 | Inpatient (IN) | payer MEDICARE, BC, OTHER ==
[2020-04-07] MEDS ORDERED: Morphine 4 MG/ML VIAL ONE ×2 (08:12→16:35)
[2020-04-07 08:34] LABS: #Lymphocytes 0.7 thou/uL (1.20-3.40); #Monocytes 0.7 thou/uL (0.11-0.59); #Neutrophils 5.6 thou/uL (1.40-6.50); %Basophils 0.2 % (0.0-1.0); %Lymphocytes 10.3 % (21.0-51.0); %Monocytes 10.2 % (0.0-10.0); %Neutrophils 79.2 % (42.0-75.0); Hemoglobin 12.1 g/dL (12.0-16.0); Mean Corpuscular HGB CONC 31.6 g/dL (32.0-36.0); Mean Corpuscular Hemoglobin 25.8 pg (27.0-31.0); Mean Corpuscular Volume 81.5 fL (78.0-98.0); Mean Platelet Volume 9.2 fL (7.4-10.4); Platelet Count 221 thou/uL (130-400); RBC Distribution Width 12.2 % (11.5-14.5); Red Blood Cell (RBC) Count 4.71 mill/uL (4.20-5.40); White Blood Cell (WBC) Count 7.1 thou/uL (4.8-10.8)
[2020-04-07 08:54] LABS: ALT (SGPT) 12 U/L (8-55); AST (SGOT) 22 U/L (5-34); Alkaline Phosphatase 62 U/L (40-110); Anion Gap 16 mmol/L (10-20); BUN (Urea Nitrogen) 11 mg/dL (9.8-20.1); Bilirubin, Total 0.6 mg/dL (0.2-1.2); Calc. Creatinine Clearance 0 mL/min (70-130); Calcium 8.9 mg/dL (7.8-10.44); Carbon Dioxide 22 mmol/L (22-29); Chloride 102 mmol/L (98-107); Estimated GFR-MDRD Greater than 90; Glucose 103 mg/dL (70-105); Lipase 7 U/L (8-78); Potassium 3.7 mmol/L (3.5-5.1); Sodium 136 mmol/L (136-145)
[2020-04-07 11:36] LABS: Bacteria/HPF None Seen HPF (None Seen); Bilirubin Negative (Negative); Blood, Urine 1+ (Negative); Clarity Clear (Clear); Glucose, Urine (Dipstick) Normal (Negative); Ketone, Urine Negative (Negative); Leukocyte 25 Leu/uL (Negative); Nitrite Negative (Negative); Protein, Urine (Dipstick) 10 mg/dL (Neg-Trace); Specific Gravity, Urine 1.046 (1.002-1.036); Urobilinogen Normal mg/dL (Less than 2)
[2020-04-07] MEDS ORDERED: cefTRIAXone\\ROCEPHIN 2 GM VIAL ONE (12:06)
--- NOTE | 2020-04-07 12:33 | RAD ---
PORTABLE CHEST: HISTORY: Chest pain. COMPARISON: 02/01/2020 exam. FINDINGS: The heart size is borderline. Mediastinal structures appear unremarkable. There are chronic-appeari ng lung changes. No focal infiltrative process. Bilateral humeral prostheses are present. IMPRESSION: Chronic-appearing lung change. POS: OFF
[2020-04-07 12:43] LABS: SARS-CoV-2 NAA Rapid Test Not Detected (NotDetected)
[2020-04-07] MEDS ORDERED: Acetaminophen 650 MG Suppository PR PRN (12:48)
[2020-04-07 13:02] LABS: Troponin I Less than 0.010 ng/mL (< 0.028)
[2020-04-07] MEDS ORDERED: Iopamidol-370 76% 500 ML 1 ML ONE (13:41)
--- NOTE | 2020-04-07 14:25 | CT ---
CT ANGIO OF CHEST PERFORMED WITH INTRAVENOUS CONTRAST ENHANCEMENT WITH 3DE RECONSTRUCTIONS: 04/07/20 HISTORY: Left flank pain starting last night. Fever. There is an area of tree-in-bud nodularity within the right upper lobe and atelectatic changes in the left base. There is very small left pleural effusion present. There is minimal parenchymal change wi thin the lingula. Thoracic aorta is normal in caliber. There is good pulmonary artery opacification. There is no CT stan dence for pulmonary embolus. IMPRESSION: 1. Tree-in-bud nodularity in the right upper lobe suggesting pneumonitis type change. Minimal pa renchymal change also seen in the lingula and atelectatic change in the left base. These changes are not the typical appearance for COVID pneumonia although this possibility is not totally excluded. 2. No CT evidence for pulmonary embolus. POS: OFF
--- NOTE | 2020-04-07 14:43 | CT ---
CT OF ABDOMEN AND PELVIS PERFORMED WITH CONTRAST ENHANCEMENT: 04/07/20 HISTORY: Left sided flank pain. Fever. COMPARISON: 10/26/17 exam. The lung bases show left lower lobe atelectatic type change. The liver, spleen, pancreas and gallblad errol regions appear unremarkable. Right and left adrenal glands and right and left kidneys are normal in size. The right renal cyst is identified. There is no significant periaortic or mesenteric adenopathy. There is a moderate amount o f stool present within the colon. CT OF PELVIS PERFORMED WITH CONTRAST ENHANCEMENT: The cecum is low lying. The appendix is normal. I do not appreciate any significant pelvic lymphadeno brittany. No mass. Postop changes of both hips are present. There are arthritic changes of the lower lumbar spine. IMPRESSION: 1. Left lower lobe atelectatic lung change. 2. No acute findings of the abdomen or pelvis. 3. Right renal cyst. POS: OFF
[2020-04-07] MEDS ORDERED: Electrolyte Replacement Protoc 1 EACH EACH FS SCH (14:45)
[2020-04-07] MEDS ORDERED: Electrolyte Replacement Protocol FS PRN (14:45)
[2020-04-07 15:43] LABS: Troponin I Less than 0.010 ng/mL (< 0.028)
[2020-04-07] MEDS ORDERED: Morphine 4 MG/ML VIAL SLOW IVP SCH (16:15)
--- NOTE | 2020-04-07 16:36 | HP ---
TIME OF ASSESSMENT: 12:30 PRIMARY CARE PHYSICIAN: Dr. Lynnette Cooper. CHIEF COMPLAINT: Left flank/chest pain. HISTORY OF PRESENT ILLNESS: Ms. Billingsley is a 54-year-old woman who presents to the emergency department with complaints of left flank/left lateral chest pain, who recently underwent a nerve stimulator placement. She states she began to have pain yesterday evening and noticed a low-grade temperature of 100.1. She called her physician, Dr. Bai, who advised monitoring her temp and coming into the hospital for temp above 101. The patient states the pain continued and she found it especially difficult to lay flat on her back. It caused her severe pain in her back as well as the left lateral chest wall with difficulty breathing. She sat forward with several pillows and states that she continued to have pain, but it made it somewhat easier to tolerate. This morning, she continued to feel badly with persistent pain causing her difficulty with deep inspiration and with any slight movements. The patient states she rechecked her temperature in the morning and noted that it had increased to 102. She opted to come in for further evaluation. She was brought by ambulance and en route was noted to have a temperature of 99.3 and given 1 g of Tylenol. Blood pressure was stable 123/90. She had laboratory studies done in the emergency department, which showed a white count of 7.1, hemoglobin 12.1, hematocrit 38.4, platelets 221, neutrophils 79.2. D-dimer was elevated at 1.80. Sodium 136, potassium 3.7, BUN 11, creatinine 0.7, GFR greater than 90, glucose 103, lactic acid 1.3, calcium 8.9. LFTs unremarkable. Troponin negative x2. Lipase 7. She had a chest x-ray done demonstrating chronic-appearing lung change with borderline heart size. No acute abnormalities. An EKG was done showing a normal sinus rhythm with a heart rate of 93. The patient was given morphine 8 mg IV x1 for pain. She received 1 L of normal saline. She had a CT angiogram of the chest done showing tree-in-bud nodularity in the right upper lobe suggesting pneumonitis. Minimal parenchymal changes seen in the lingula and atelectatic change in the left base, felt to be atypical for COVID pneumonia, however, not completely excluded. No evidence of PE noted. The patient was given 2 g of Rocephin. She had a urinalysis done, which showed 24 leukocyte esterase, 7 to 10 red blood cells, 4 to 6 white blood cells, 7 to 10 squamous epithelial cells. No bacteria and no nitrites present. Antibiotics per ED reports were started for UTI. Admission requested for diagnoses of chest pain, fever, upper quadrant pain, UTI. PAST MEDICAL HISTORY: 1. Systemic lupus. 2. Hypertension. 3. Avascular osteonecrosis of bilateral hips, bilateral shoulders, and bilateral knees. 4. Gastroparesis. 5. Degenerative disk disease. 6. Chronic pain syndrome. 7. Antiphospholipid syndrome. 8. Costochondritis. 9. Mononucleosis, treated. 10. Rheumatoid arthritis. 11. Depression. PAST SURGICAL HISTORY: 1. Hysterectomy. 2. Right and left shoulder surgery. 3. Left knee arthroscopy x2. 4. Left knee replacement. 5. Tonsillectomy. 6. Bilateral hip replacements. 7. Neurostimulator for sciatic nerve pain. SOCIAL HISTORY: The patient lives with family. She denies any tobacco use, alcohol consumption, or illicit drug use. FAMILY HISTORY: Noncontributory. ALLERGIES: NO KNOWN DRUG ALLERGIES. CURRENT MEDICATIONS: 1. Sertraline. 2. Losartan. 3. Hydroxychloroquine. 4. Hydrocodone/APAP. 5. Cyclobenzaprine. 6. Fentanyl. 7. Amlodipine. 8. Clonidine. 9. Dicyclomine. 10. Orencia. 11. Sulfamethoxazole/trimethoprim. 12. Amitriptyline. All doses to be verified with the patient. PHYSICAL EXAMINATION: GENERAL: The patient appears well developed, well nourished, is in no acute distress. VITAL SIGNS: Temperature 98.4, pulse 69, blood pressure 134/72, respirations 19, O2 saturation 100% on room air. HEENT: Normocephalic and atraumatic. Pupils are equal, round, and reactive to light. Sclerae, no icterus. Oropharynx is clear. NECK: Supple. LUNGS: Clear to auscultation bilaterally without wheezes, rales, or rhonchi. Normal chest expansion despite discomfort upon deep inspiration. ABDOMEN: Soft. Mild left upper quadrant discomfort with palpation, however, patient states she has diffuse pain due to chronic pain syndrome. Abdomen is nondistended. No guarding or rigidity. SKIN: Warm and dry. NEUROLOGIC: Alert and oriented x3. No neuro deficits on exam. INVESTIGATIONS: As mentioned above in HPI. IMPRESSION AND PLAN: Ms. Billingsley is a 54-year-old woman with chronic pain syndrome and chronic back pain, who recently underwent a stimulator placement, presenting to emergency department with a fever and left flank/lateral chest pain, who is being admitted for management of the following. 1. Fever. In conjunction with the left flank pain and recent nerve stimulator placement, we will like to rule out possibility of an epidural abscess. The patient had alarming symptoms such as increasing pain when lying flat and high-grade fever of 102. In light of recent procedure, she would be at risk for epidural abscess and therefore, an MRI would help to rule this out. The patient states the pain is also similar to which she has experienced in the past with pneumonia and given the pleuritic type of lateral chest pain she is experiencing, that could be a possibility as well. Currently, the CT angiogram of the chest report is pending. Also awaiting CT of the abdomen and pelvis requested by the ED physician. No white cell count at present and lactic acid negative. Therefore, we will hold off on antibiotics. Patient without any urinary symptoms. Urinary tract infection is less likely. 2. Sciatic pain. As mentioned, the patient recently had a nerve stimulator done by Dr. Bai. This is to be revised by him. 3. Chronic pain syndrome. Resume home medications once verified. 4. Pleuritic chest pain. Please see number one. In addition to that, D-dimer was elevated. As mentioned, CT angiogram of the chest has been done to rule out possibility of underlying PE. This has shown no evidence of PE. There were some changes consistent with possible pneumonitis; however, this is on the opposite side of where she is experiencing pain. 5. Hypertension. Monitor blood pressure and resume home medications once verified. 6. Rheumatoid arthritis. Resume home medications once verified. 7. Gastrointestinal prophylaxis with famotidine. 8. Deep venous thrombosis prophylaxis. Hold any pharmaco prophylaxis given recent procedure. We will place patient on mechanical SCDs for DVT prophylaxis. 9. Code status is full. Surrogate decision maker is her mother, Abbie Streeter. Patient's case discussed with attending, Dr. Alvarez, who agrees upon care as described above. Job ID: [id number]
[2020-04-07 18:45] VITALS: BMI 19.6
[2020-04-07] MEDS: Acetaminophen 325 MG TAB PO PRN (20:31)
[2020-04-07] MEDS: Morphine 2 MG/ML VIAL SLOW IVP PRN (20:31)
[2020-04-07] MEDS: Famotidine/PF 20 mg/2ml Vial SLOW IVP SCH (20:31)
[2020-04-08] MEDS: Morphine 2 MG/ML VIAL SLOW IVP PRN ×3 (00:47→08:42)
[2020-04-08] MEDS: Acetaminophen 325 MG TAB PO PRN ×2 (00:47→04:38)
[2020-04-08 05:53] LABS: Anion Gap 13 mmol/L (10-20); BUN (Urea Nitrogen) 11 mg/dL (9.8-20.1); Calc. Creatinine Clearance 98 mL/min (70-130); Calcium 8.1 mg/dL (7.8-10.44); Carbon Dioxide 21 mmol/L (22-29); Chloride 107 mmol/L (98-107); Estimated GFR-MDRD Greater than 90; Glucose 98 mg/dL (70-105); Hemoglobin 10.9 g/dL (12.0-16.0); Mean Corpuscular HGB CONC 32.2 g/dL (32.0-36.0); Mean Corpuscular Hemoglobin 26.4 pg (27.0-31.0); Mean Corpuscular Volume 81.9 fL (78.0-98.0); Mean Platelet Volume 9.2 fL (7.4-10.4); Platelet Count 195 thou/uL (130-400); Potassium 3.9 mmol/L (3.5-5.1); RBC Distribution Width 12.4 % (11.5-14.5); Red Blood Cell (RBC) Count 4.13 mill/uL (4.20-5.40); Sodium 137 mmol/L (136-145); White Blood Cell (WBC) Count 4.7 thou/uL (4.8-10.8)
[2020-04-08 05:54] LABS: Band 5 % (5-11); Lymphocytes 20 % (21-51); MDiff Complete? YES; Metamyelocyte 1 % (0-0); Monocytes 13 % (0-10); Neutrophil 61 % (42-75); Platelet Morphology Comment Appears Adequate; RBC Morphology Normal
[2020-04-08] MEDS ORDERED: Magnesium 2 GM/50 ML 2 GM in Premix Bag 1 BAG IVPB SCH (06:15)
[2020-04-08] MEDS: Famotidine/PF 20 mg/2ml Vial SLOW IVP SCH ×2 (08:36→20:51)
--- NOTE | 2020-04-08 12:12 | RAD ---
KUB: HISTORY: Evaluation for any remaining stimulator leads. FINDINGS: The bowel gas pattern is nonobstructive. I do not see any stimulator leads on this exam. Bilateral hip prostheses are present. IMPRESSION: No evidence of any stimulator leads. POS: OFF
--- NOTE | 2020-04-08 12:35 | MRI ---
MRI OF LUMBAR SPINE PERFORMED WITH AND WITHOUT CONTRAST ENHANCEMENT: HISTORY: The patient had stimulator removal yesterday. Complaining of lumbar pain and difficulty breathing wh en laying down. FINDINGS: The vertebral bodies maintain normal height. There is evidence of red marrow reconversion which can be caused by multiple factors. The disk spaces are well preserved with the exception of some moderat e disk narrowing at L5-S1. There is no significant periaortic adenopathy. The visualized portions o f the kidneys are unremarkable other than an upper pole right renal cyst. There is no evidence of any epidural abscess. T12-L1: Unremarkable. L1-2: Unremarkable. L2-3: Unremarkable. L3-4: Unremarkable. L4-5: Degenerative facet changes. No canal or foraminal stenosis. L5-S1: Degenerative facet changes also present at this level without significant canal or foraminal stenosis. IMPRESSION: No evidence for any epidural abscess. No canal or foraminal narrowing demonstrated. POS: OFF
[2020-04-08] MEDS ORDERED: Magnevist 469MG/ML 20 ML VIAL ONE (14:16)
--- NOTE | 2020-04-08 15:19 | PDOC.HOSPP ---
- Subjective Encounter Date: 04/08/20 Encounter Time: 15:15 Subjective: f/u for febrile episode with suspected UTI receiving Rocephin initially. States L flank/back pain persists with difficulty taking deep breaths. No N/V. - Objective Vital Signs & Weight: Vital Signs (12 hours) Temp Pulse Resp BP Pulse Ox 04/08/20 13:52 99.1 F 69 21 H 133/75 98 04/08/20 04:45 98.5 F 65 18 109/65 98 Weight Weight 133 lb I&O: 04/07/20 04/08/20 04/09/20 06:59 06:59 06:59 Intake Total 480 Balance 480 Result Diagrams: 04/08/20 05:07 04/08/20 05:07 Additional Labs: Microbiology 04/07/20 10:59 Urine voided Urine Culture - Preliminary Gram Negative George 04/07/20 08:20 Venous blood - Right Arm Blood Culture - Preliminary Specimen has been received and culture in progress. No Growth to date. 04/07/20 08:20 Venous blood - Left Arm Blood Culture - Preliminary Specimen has been received and culture in progress. No Growth to date. 10/26/17 12:30 Urine clean catch Urine Culture - Preliminary Escherichia coli Laboratory Tests 04/07/20 04/07/20 04/07/20 08:20 08:20 11:20 Hgb 12.1 D-Dimer 1.80 H SARS-CoV-2 Rap RNA(RT-PCR) Not Detected Radiology Reviewed by me: Yes (MRI L-spine - no abscess noted) EKG Reviewed by me: Yes (Tele - SR) Hospitalist ROS - Medication Medications: Active Medications Generic Name Dose Route Start Last Admin Trade Name Freq PRN Reason Stop Dose Admin Acetaminophen 650 mg 04/07/20 12:48 04/08/20 04:38 Acetaminophen 325 Mg Tab PO 650 mg Q4H PRN Administration Headache/Fever/Mild Pain (1-3) Famotidine 20 mg 04/07/20 21:00 04/08/20 08:36 Famotidine/Pf 20 Mg/2ml Vial SLOW IVP 20 mg Q12HR TYRONE Administration Morphine Sulfate 2 mg 04/07/20 16:33 04/08/20 08:42 Morphine 2 Mg/Ml Vial SLOW IVP 2 mg Q4H PRN Administration Severe Pain (7-10) - Exam General Appearance: awake alert, ill appearing Eye: PERRL, anicteric sclera ENT: normocephalic atraumatic, no oropharyngeal lesions Neck: supple, symmetric, no JVD, no thyromegaly, no lymphadenopathy Heart: RRR, no murmur, no gallops, no rubs, normal peripheral pulses Heart - other findings: S1, S2 Respiratory: CTAB, no wheezes, no rales, no ronchi Gastrointestinal: soft, non-distended, normal bowel sounds, no palpable masses Gastrointestinal - other findings: L CVA TTP Extremities: no cyanosis, no clubbing, no edema Skin: normal turgor, no lesions Neurological: cranial nerve grossly intact, no new deficit Musculoskeletal: normal tone, normal strength Psychiatric: A&O x 3, flat affect Hosp A/P (1) UTI (urinary tract infection) Status: Acute Plan: Suspected, continue Rocephin 2gm IV daily with Vancomycin 1gm IV BID, IVF's (2) Chronic pain disorder Code(s): G89.4 - CHRONIC PAIN SYNDROME Status: Chronic Plan: Fentanyl patch, Trumann, Nerve stimulator (3) Systemic lupus erythematosus Code(s): M32.9 - SYSTEMIC LUPUS ERYTHEMATOSUS, UNSPECIFIED Status: Chronic (4) Pleurisy Code(s): R09.1 - PLEURISY Status: Acute Plan: Suspected given clinical exam, Toradol 30mg IV q6h - Plan continue antibiotics, 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
[2020-04-08] MEDS: Sodium Chloride 0.9% 1,000 ML IV SCH (17:03)
[2020-04-08] MEDS: Ketorolac Tromethamine 30 MG/ML VIAL IVP SCH ×2 (17:06→20:52)
[2020-04-08] MEDS: Dicyclomine 10 MG CAP PO SCH (17:08)
[2020-04-08] MEDS: HYDROcodone/Acetaminophen 10/325 mg Tablet PO PRN (17:08)
[2020-04-08] MEDS: Lidocaine 5% Patch TD SCH (17:10)
[2020-04-08] MEDS: cefTRIAXone\\ROCEPHIN 2 GM in Sodium Chloride 0.9% 100 ML IVPB SCH (17:42)
--- NOTE | 2020-04-08 17:53 | CON ---
DATE OF CONSULTATION: 04/07/2020 REASON FOR CONSULT: Back pain with the patient under my care. CHIEF COMPLAINT: Fever. HISTORY OF PRESENT ILLNESS: Ms. Billingsley is a 54-year-old woman who presented to the emergency department with complaints of left flank pain and some lateral chest pain. I had placed a spinal cord stimulator trial on Thursday to cover her bilateral lower extremity pain. The date for the lead removal was supposed to be April 09. I called the patient on ThursdayApril 06 to check up on her and she stated that she initially had pain in her lower back, however, that had subsided and she stated that she developed a fever of 100.1. I stated that usually a fever or a temperature below 100.4 is not considered a fever. She checked again and she was at approximately 98.6 Fahrenheit. After she had taken her antibiotics, however, she stated that she had forgotten to pick up worker her prophylactic antibiotic which we prescribed during trials. She stated that she would pick it up and start taking it. This is Bactrim DS one p.o. b.i.d. for seven days. She started this on April 06 at night. I also advised the patient over the phone that if she had a temperature that went higher than 100.4, that she would call me or go to the ER. I also noted that if she has a crescendoing or any type of lower extremity paresthesia, she should immediately call 911 and go to the ER. I called to check on her on April 07 in the morning and she stated that she was at the ER and she had developed a temperature of 100.2, and was taken to the emergency room. En route by ambulance, she had a temperature of approximately 99.3 Fahrenheit and was given 1 g of Tylenol. Blood pressure was stable. The patient did note some pain in the procedure area. However, most of her pain was in the left flank and left posterior chest. She continued to have pain and the pain causes her difficulty with deep inspiration and with slight movements. She could not lay flat on her back and had to be elevated. The pain was denoted as aching and sharp at times. It was not over the procedure site and not over her lower back. PAST MEDICAL HISTORY: 1. Systemic lupus. 2. Hypertension. 3. Avascular necrosis of bilateral hips and bilateral shoulders, which all had total joint replacements. 4. Gastroparesis. 5. Degenerative disk disease. 6. Chronic pain syndrome. 7. Antiphospholipid syndrome. 8. Costochondritis. 9. Mononucleosis. 10. Rheumatoid arthritis. 11. Depression. PAST SURGICAL HISTORY: 1. Hysterectomy. 2. Right and left shoulder surgery, replacement. 3. Left knee arthroscopy x2. 4. Left knee replacement. 5. Bilateral hip replacements. 6. Tonsillectomy. 7. Stimulator trial. SOCIAL HISTORY: The patient lives with family. She denies alcohol, drug, or smoking use. FAMILY HISTORY: Noncontributory. ALLERGIES: NO KNOWN DRUG ALLERGIES. CURRENT MEDICATIONS: 1. Sertraline. 2. Losartan. 3. Hydroxychloroquine. 4. Hydrocodone 10/325 one p.o. b.i.d. p.r.n. breakthrough pain. 5. Cyclobenzaprine. 6. Fentanyl patch. 7. Amlodipine. 8. Clonidine. 9. Dicyclomine. 10. Orencia. 11. Amitriptyline. PHYSICAL EXAMINATION: GENERAL: The patient was in no acute distress. She is alert and oriented x4. VITAL SIGNS: In the emergency room were temperature 98.4, pulse of 69, blood pressure 134/72, respirations 19, O2 saturation 100% on room air. HEENT: Normocephalic and atraumatic. Pupils are equally round and reactive to light. NECK: Supple. LUNGS: Clear to auscultation bilaterally. No wheezes, rales, or rhonchi Nonlabored respirations. ABDOMEN: Soft, nontender, nondistended. MUSCULOSKELETAL: 5/5 strength in bilateral upper and lower extremities. SKIN: Warm and dry. Stimulator sites; the bandages were removed. No signs or symptoms of infection. No purulence. No edema. No erythema. The leads were removed intact. There was no purulence on them. Band-Aid was applied to both needle entry sites. NEUROLOGIC: Alert and oriented x4. No deficits on exam. ASSESSMENT AND PLAN: 1. Spinal cord stimulator trial with development of fever. It is unlikely that the fever is due to the procedure given that the procedure site is clean and has no signs and symptoms of infection. She does not have the typical crescendoing lower back pain which we see with epidural abscess. She also does not have any pain in her lower extremities, which is a good prognostic sign. Nevertheless, since she does have a fever and she did have hardware placed inside the epidural space two days prior to her onset of fever, I believe it is prudent to get a MRI of the L-spine with and without contrast to further evaluate whether she has other serious pathology such as epidural abscess. I have talked to the attending and admitting physician and the physician registered medical assistant about this and they have ordered it. 2. Chronic pain syndrome. She is on fentanyl patch as well as [place] for breakthrough pain. I advised that we keep her on all her home doses, and if she has increased pain, we can increase the amount of [place] that she takes for breakthrough pain from one p.o. b.i.d. to one p.o. q.6 hours p.r.n. pain. However, keeping the fentanyl patch withdrawal signs. 3. Pleuritic chest pain per primary team. 4. Urinary tract infection per primary team. I will continue to monitor and evaluate her MRI once she has it. Job ID: [id number]
[2020-04-08] MEDS: Vancomycin 1 GM in Premix Bag 1 BAG IVPB SCH (18:36)
[2020-04-08] MEDS: Cyclobenzaprine 10 MG TAB PO SCH (20:49)
[2020-04-08] MEDS: Hydroxychloroquine Sulfate 200 MG TAB PO SCH (20:50)
[2020-04-08] MEDS: Amitriptyline HCl 10 MG TAB PO SCH (20:50)
[2020-04-08] MEDS: cloNIDine 0.1 MG TAB PO SCH (20:50)
[2020-04-08] MEDS ORDERED: Prevnar 13-Val Conj/PF 0.5 ML SYRINGE IM ONE (21:00)
[2020-04-09] MEDS: Morphine 2 MG/ML VIAL SLOW IVP PRN (02:05)
[2020-04-09] MEDS: Acetaminophen 325 MG TAB PO PRN (04:27)
[2020-04-09] MEDS: Vancomycin 1 GM in Premix Bag 1 BAG IVPB SCH ×2 (04:27→18:07)
[2020-04-09] MEDS: Ketorolac Tromethamine 30 MG/ML VIAL IVP SCH ×3 (04:29→16:14)
[2020-04-09] MEDS: Lidocaine Patch Removal 1 EACH TOP SCH (04:30)
[2020-04-09] MEDS: FLU VACC QS2020-21(6MOS UP)/PF 60 MCG/0.5 ML SYRINGE IM ONE (04:41)
[2020-04-09 05:34] LABS: Band 3 % (5-11); Hemoglobin 10.3 g/dL (12.0-16.0); Lymphocytes 30 % (21-51); MDiff Complete? YES; Mean Corpuscular HGB CONC 31.6 g/dL (32.0-36.0); Mean Corpuscular Hemoglobin 25.8 pg (27.0-31.0); Mean Corpuscular Volume 81.8 fL (78.0-98.0); Monocytes 17 % (0-10); Neutrophil 50 % (42-75); Platelet Count 204 thou/uL (130-400); Platelet Morphology Comment Appears Adequate; RBC Distribution Width 12.3 % (11.5-14.5); Red Blood Cell (RBC) Count 3.98 mill/uL (4.20-5.40); White Blood Cell (WBC) Count 3.3 thou/uL (4.8-10.8)
[2020-04-09] MEDS: Sodium Chloride 0.9% 1,000 ML IV SCH ×3 (06:14→18:01)
[2020-04-09] MEDS: Losartan 25 MG TAB PO SCH (10:04)
[2020-04-09] MEDS: Dicyclomine 10 MG CAP PO SCH ×3 (10:05→16:15)
[2020-04-09] MEDS: Famotidine/PF 20 mg/2ml Vial SLOW IVP SCH ×2 (10:05→20:20)
[2020-04-09] MEDS: Hydroxychloroquine Sulfate 200 MG TAB PO SCH ×2 (10:05→20:35)
[2020-04-09] MEDS: Amlodipine 10 MG TAB PO SCH (10:05)
[2020-04-09] MEDS: HYDROcodone/Acetaminophen 10/325 mg Tablet PO PRN ×2 (10:06→20:18)
[2020-04-09] MEDS: cloNIDine 0.1 MG TAB PO SCH ×2 (10:06→20:20)
[2020-04-09] MEDS ORDERED: Ondansetron PF 4 MG/2 ML Vial IVP PRN (13:05)
[2020-04-09] MEDS: cefTRIAXone\\ROCEPHIN 2 GM in Sodium Chloride 0.9% 100 ML IVPB SCH (16:14)
[2020-04-09] MEDS: Lidocaine 5% Patch TD SCH (16:15)
--- NOTE | 2020-04-09 17:45 | PDOC.HOSPP ---
- Subjective Encounter Date: 04/09/20 Encounter Time: 17:40 Subjective: f/u for febrile illness and UTI with E. coli spp on Rocephin/Vancomycin currently. Feels better overall and less L flank/back pain. - Objective Vital Signs & Weight: Vital Signs (12 hours) Temp Pulse Resp BP Pulse Ox 04/09/20 16:00 98.3 F 66 18 126/66 98 04/09/20 11:42 98.6 F 66 16 143/77 H 99 04/09/20 10:15 100 04/09/20 07:25 98.7 F 60 16 151/81 H 100 Weight Weight 133 lb I&O: 04/08/20 04/09/20 04/10/20 06:59 06:59 06:59 Intake Total 480 1476 Output Total 875 Balance 480 601 Result Diagrams: 04/09/20 04:20 04/08/20 05:07 Additional Labs: Microbiology 04/07/20 10:59 Urine voided Urine Culture - Final Escherichia coli 04/07/20 10:59 Urine voided Urine Culture - Preliminary Gram Negative George 04/07/20 08:20 Venous blood - Right Arm Blood Culture - Preliminary Specimen has been received and culture in progress. No Growth to date. 04/07/20 08:20 Venous blood - Right Arm Blood Culture - Preliminary NO GROWTH AT 48 HOURS 04/07/20 08:20 Venous blood - Left Arm Blood Culture - Preliminary Specimen has been received and culture in progress. No Growth to date. 04/07/20 08:20 Venous blood - Left Arm Blood Culture - Preliminary NO GROWTH AT 48 HOURS 10/26/17 12:30 Urine clean catch Urine Culture - Preliminary Escherichia coli Laboratory Tests 04/07/20 04/07/20 04/07/20 08:20 08:20 11:20 Hgb 12.1 D-Dimer 1.80 H SARS-CoV-2 Rap RNA(RT-PCR) Not Detected Hospitalist ROS - Medication Medications: Active Medications Generic Name Dose Route Start Last Admin Trade Name Freq PRN Reason Stop Dose Admin Acetaminophen 650 mg 04/07/20 12:48 04/09/20 04:27 Acetaminophen 325 Mg Tab PO 650 mg Q4H PRN Administration Headache/Fever/Mild Pain (1-3) Hydrocodone Bitart/Acetaminophen 1 tab 04/08/20 15:17 04/09/20 10:06 Hydrocodone/Acetaminophen 10/325 Mg Tablet PO 1 tab Q6HR PRN Administration Pain Amitriptyline HCl 10 mg 04/08/20 21:00 04/08/20 20:50 Amitriptyline Hcl 10 Mg Tab PO 10 mg HS TYRONE Administration Amlodipine Besylate 10 mg 04/09/20 09:00 04/09/20 10:05 Amlodipine 10 Mg Tab PO 10 mg DAILY TYRONE Administration Clonidine 0.1 mg 04/08/20 21:00 04/09/20 10:06 Clonidine 0.1 Mg Tab PO 0.1 mg BID TYRONE Administration Cyclobenzaprine HCl 5 mg 04/08/20 21:00 04/08/20 20:49 Cyclobenzaprine 10 Mg Tab PO 5 mg HS TYRONE Administration Dicyclomine HCl 10 mg 04/08/20 17:00 04/09/20 16:15 Dicyclomine 10 Mg Cap PO 10 mg TID-WM TYRONE Administration Famotidine 20 mg 04/07/20 21:00 04/09/20 10:05 Famotidine/Pf 20 Mg/2ml Vial SLOW IVP 20 mg Q12HR TYRONE Administration Hydroxychloroquine Sulfate 200 mg 04/08/20 21:00 04/09/20 10:05 Hydroxychloroquine Sulfate 200 Mg Tab PO 200 mg BID TYRONE Administration Ceftriaxone Sodium 2 gm/ 100 mls @ 200 mls/hr 04/08/20 16:00 04/09/20 16:14 Sodium Chloride IVPB 100 mls 1600 TYRONE Administration Vancomycin HCl 1 gm/ Device 200 mls @ 200 mls/hr 04/08/20 17:00 04/09/20 04:27 IVPB 200 mls 0500,1700 TYRONE Administration Sodium Chloride 1,000 mls @ 100 mls/hr 04/08/20 15:45 04/09/20 10:07 Normal Saline 0.9% IV 1,000 mls .Q10H TYRONE Administration Ketorolac Tromethamine 30 mg 04/08/20 16:00 04/09/20 16:14 Ketorolac Tromethamine 30 Mg/Ml Vial IVP 04/13/20 16:01 30 mg 0400,1000,1600,2200 TYRONE Administration Lidocaine 2 patch 04/08/20 16:00 04/09/20 16:15 Lidocaine 5% Patch TD 2 patch Q24HR TYRONE Administration Losartan Potassium 100 mg 10/05/20 09:00 04/09/20 10:04 Losartan 25 Mg Tab PO 100 mg DAILY TYRONE Administration Miscellaneous Medication 2 each 04/09/20 04:00 04/09/20 04:30 Lidocaine Patch Removal 1 Each TOP 2 each 0400 TYRONE Administration Morphine Sulfate 2 mg 04/07/20 16:33 04/09/20 02:05 Morphine 2 Mg/Ml Vial SLOW IVP 2 mg Q4H PRN Administration Severe Pain (7-10) Ondansetron HCl 4 mg 04/09/20 13:05 04/09/20 13:24 Ondansetron Pf 4 Mg/2 Ml Vial IVP 4 mg Q6H PRN Administration Nausea/Vomiting Sertraline HCl 100 mg 04/09/20 09:00 04/09/20 10:05 Sertraline Hcl 100 Mg Tab PO 100 mg DAILY TYRONE Administration - Exam General Appearance: NAD, awake alert Eye: PERRL, anicteric sclera ENT: normocephalic atraumatic, no oropharyngeal lesions Neck: supple, symmetric, no JVD, no thyromegaly, no lymphadenopathy Heart: RRR, no gallops, no rubs, normal peripheral pulses Heart - other findings: S1, S2 Respiratory: CTAB, no wheezes, no rales, no ronchi, normal chest expansion Gastrointestinal: soft, non-distended, normal bowel sounds, no guarding, no rigidity Gastrointestinal - other findings: mild L CVA TTP Extremities: no cyanosis, no clubbing, no edema Skin: normal turgor, no lesions Neurological: cranial nerve grossly intact, no new deficit Musculoskeletal: normal tone, normal strength, no muscle wasting Psychiatric: normal affect, A&O x 3 Hosp A/P (1) UTI (urinary tract infection) Status: Acute Plan: E.coli spp, continue Rocephin another 24h then de-escalate coverage (2) Chronic pain disorder Code(s): G89.4 - CHRONIC PAIN SYNDROME Status: Chronic (3) Systemic lupus erythematosus Code(s): M32.9 - SYSTEMIC LUPUS ERYTHEMATOSUS, UNSPECIFIED Status: Chronic (4) Pleurisy Code(s): R09.1 - PLEURISY Status: Acute Plan: Suspect referred pain from UTI, continue Toradol/Lidocaine patch/[place] - Plan continue antibiotics, social work manager, out of bed/ambulate, DVT proph w/SCDs Continue IVF's with NS @ 100ml/h Rocephin 2gm IV daily D/C Vancomycin Add Toradol 30mg IV q6h Lidocaine Patch TD daily OOB/ambulate AM lab: CBC Likely home in 24h
[2020-04-09] MEDS: Cyclobenzaprine 10 MG TAB PO SCH (23:08)
[2020-04-09] MEDS: Amitriptyline HCl 10 MG TAB PO SCH (23:08)
[2020-04-10] MEDS: Ketorolac Tromethamine 30 MG/ML VIAL IVP SCH ×2 (00:50→06:25)
[2020-04-10] MEDS: Sodium Chloride 0.9% 1,000 ML IV SCH ×2 (03:33→13:21)
[2020-04-10] MEDS: Lidocaine Patch Removal 1 EACH TOP SCH (05:26)
[2020-04-10] MEDS: cloNIDine 0.1 MG TAB PO SCH (08:59)
[2020-04-10] MEDS: Famotidine/PF 20 mg/2ml Vial SLOW IVP SCH (08:59)
[2020-04-10] MEDS: Amlodipine 10 MG TAB PO SCH (08:59)
[2020-04-10] MEDS: Hydroxychloroquine Sulfate 200 MG TAB PO SCH (08:59)
[2020-04-10] MEDS: Losartan 25 MG TAB PO SCH (09:00)
[2020-04-10] MEDS: Dicyclomine 10 MG CAP PO SCH ×2 (09:00→13:15)
[2020-04-10] MEDS ORDERED: cloNIDine 0.1mg/24 Hour PATCH TD SCH (09:00)
[2020-04-10] MEDS ORDERED: Ketorolac Tromethamine 30 MG/ML VIAL IVP SCH (12:00)
[2020-04-10] MEDS: Acetaminophen 325 MG TAB PO PRN (13:20)
[2020-04-10 14:54] VITALS: BP 127/81; TEMP 98.8
[2020-04-10] MEDS: FLU VACC QS2020-21(6MOS UP)/PF 60 MCG/0.5 ML SYRINGE IM ONE (14:56)
--- NOTE | 2020-04-11 12:51 | DIS ---
DATE OF ADMISSION: 04/07/2020 DATE OF DISCHARGE: 04/10/2020 DISCHARGE DIAGNOSES: 1. Urinary tract infection with Escherichia coli species, pansensitive. 2. Chronic pain disorder. 3. Systemic lupus erythematosus. 4. Hypertension. CONSULTATIONS: Dr. Keith Bai with Pain Management Service. PERTINENT LABORATORY AND X-RAY FINDINGS: Basic metabolic profile within normal limits. Lactic acid level 1.3. BNP 39.1, magnesium 1.6. Lipase less than 7. CBC showed a white blood cell count range between 3.3 to 7.1, hemoglobin range between 10.3 to 12.1. D-dimer 1.80. COVID-19 PCR not detected 04/07/2020. Blood cultures x2 dated 04/07/2020 showed no growth at 48 hours. Urine culture dated 04/07/2020 showed 10,000 to 25,000 colonies of E coli species, pansensitive. Portable chest x-ray dated 04/07/2020 showed chronic lung changes without acute process. CT of the abdomen and pelvis dated 04/07/2020 showed left lower lobe atelectasis. No acute intraabdominal process. Right renal cyst noted. CT angiogram of the chest dated 04/07/2020 showed no evidence for pulmonary embolus. Questionable pneumonitis in the right upper lobe and atelectasis in the left lung base. Abdominal radiographs dated 04/08/2020 showed no evidence of stimulator leads. MRI of the lumbar spine dated 04/08/2020 showed no evidence of epidural abscess. HOSPITAL COURSE: The patient initially presented with left flank and chest pain with associated fever up to 101 degrees Fahrenheit. The patient underwent extensive evaluation with urinalysis concerning for urinary tract infection. The patient also underwent chest imaging with questionable infiltrate as underlying etiology. The patient was placed on broad-spectrum antibiotic therapy and given IV fluid resuscitation. The patient with a recent nerve stimulator placement on an outpatient basis led to evaluation to rule out lead infection in the epidural space. The patient was evaluated by the pain management service, undergoing MRI imaging of the lumbar spine showing no evidence of epidural abscess. The patient was noted with urine culture positive for E coli infection treated with IV Rocephin. The patient clinically improved with addition of IV Rocephin and Toradol, and overall clinically stabilized. The patient continued pain management with fentanyl patch in addition to Cameron and Toradol and remained clinically stable in regard to pain control for the remainder of the hospital course. I have examined the patient at the time of discharge and discussed followup instructions. The patient verbalizes understanding and agreement, ready for discharge on 04/10/2020. DISCHARGE MEDICATIONS: 1. Omnicef 300 mg p.o. b.i.d. x7 days. 2. Clonidine 0.1 mg p.o. b.i.d. 3. Catapres TTS-1 at 0.1 mg transdermally q.7 days. 4. Cozaar 100 mg p.o. daily. 5. Dicyclomine 10 mg p.o. t.i.d. p.r.n. 6. Duragesic patch 25 mcg transdermally q.72 hours. 7. Elavil 10 mg p.o. at bedtime. 8. Flexeril 5 to 10 mg p.o. at bedtime p.r.n. 9. Cameron 10/325 mg 1 tablet p.o. q.6 hours p.r.n. pain. 10. Norvasc 10 mg p.o. daily. 11. Orencia 250 mg IV q.30 days. 12. Zoloft 100 mg p.o. daily. 13. Plaquenil 200 mg p.o. b.i.d. FOLLOWUP: The patient may follow up with Dr. Lynnette Cooper within 7 days of discharge. The patient will follow up with Dr. Keith Bai and to call his office for appointment time and date. CONDITION ON DISCHARGE: Stable. ACTIVITY: Ad-geeta. DIET: Regular. CODE STATUS: Full. DISPOSITION: Home 04/10/2020. Total time preparing and coordinating discharge, 35 minutes. Job ID: [id number]
[2020-04-15] MEDS ORDERED: cloNIDine 0.1mg/24 Hour PATCH TD SCH (09:00)
== END 2020-04-10 15:34 | disposition home or self-care (01) | DRG 690 ==
LOC: ERS 07:22 → OBSVTOIN 13:31 → ERHOLD 13:31 → 2SW 13:31 → T4-A 04-09 11:46
PROVIDERS: ADMIT Internal Medicine; ATTEND Internal Medicine
DX: N39.0 Urinary tract infection, site not specified (principal); D68.61 Antiphospholipid syndrome; I10 Essential (primary) hypertension; M32.9 Systemic lupus erythematosus, unspecified; M19.90 Unspecified osteoarthritis, unspecified site; G89.4 Chronic pain syndrome; Z96.652 Presence of left artificial knee joint; M06.9 Rheumatoid arthritis, unspecified; F32.9 Major depressive disorder, single episode, unspecified; Z96.643 Presence of artificial hip joint, bilateral; M54.30 Sciatica, unspecified side; R09.1 Pleurisy; K31.84 Gastroparesis; F41.9 Anxiety disorder, unspecified; Z90.710 Acquired absence of both cervix and uterus; Z79.899 Other long term (current) drug therapy; Z20.828 Contact with and (suspected) exposure to other viral communicable diseases
CPT/HCPCS: 36415; 71045; 71275; 72158; 74018; 74177; 80048; 80053; 81003; 81015; 83605; 83690; 83735; 83880; 84484; 85025; 85379; 87040; 87077; 87086; 87186; 90471; 90662; 93005; 96361; 96365; 96375; 96376; A9579; G0008; G0378; J0696; J1885; J2270; J2405; J3370; J3475; J3490; Q9967; S0028; U0002

== ENCOUNTER 2020-06-01 12:09 | Outpatient (CLI) | payer BC ==
[2020-06-02 11:00] LABS: SARS-CoV-2 MS2 Positive; SARS-CoV-2 N Gene Negative; SARS-CoV-2 S Gene Negative; SARS-CoV-2 by NAA Not Detected (NotDetected); SARS-CoV-2 orf1ab Negative
== END 2020-06-01 12:10 | disposition home or self-care (01) ==
LOC: LABBT 12:09
PROVIDERS: ATTEND Specialist
DX: Z20.828 Contact with and (suspected) exposure to other viral communicable diseases (principal)
CPT/HCPCS: 87635; U0003

== ENCOUNTER 2020-06-05 10:14 | Inpatient (IN) | payer MEDICARE, BC ==
[2020-06-05] MEDS ORDERED: Sodium Chloride 0.9% 0 ML ONE (10:58)
[2020-06-05] MEDS ORDERED: CEFAZOLIN 1 GM VIAL ONE (10:58)
[2020-06-05] MEDS ORDERED: Sodium Chloride 0.9% 100 ML ONE (11:00)
[2020-06-05] MEDS ORDERED: Fentanyl 100 MCG/2 ML VIAL ONE ×2 (12:03→15:43)
[2020-06-05] MEDS ORDERED: Midazolam HCl 2 mg/2 ml Vial ONE (12:03)
[2020-06-05] MEDS ORDERED: Propofol 500 MG/50 ML VIAL ONE (12:07)
[2020-06-05] MEDS ORDERED: Bupivacaine PF 0.5% 30 ML VIAL ONE (12:40)
[2020-06-05] MEDS ORDERED: EPINEPHrine 1 MG/ML AMP ONE (12:40)
[2020-06-05] MEDS ORDERED: methylPREDNISolone Acetate 40 mg/ml Vial ONE (12:55)
[2020-06-05] MEDS ORDERED: Sodium Chloride 0.9% 30 ML ONE (13:12)
[2020-06-05] MEDS ORDERED: PROPOFOL 60 ML ONE (14:10)
[2020-06-05] MEDS ORDERED: Ondansetron PF 4 MG/2 ML Vial ONE (16:31)
[2020-06-05] MEDS ORDERED: Morphine 2 MG/ML VIAL ONE ×2 (16:41→17:57)
[2020-06-05] MEDS ORDERED: Promethazine HCl 25 MG/ML VIAL ONE (17:58)
[2020-06-05] MEDS ORDERED: Sodium Chloride 0.9% 10 ML ONE (17:58)
[2020-06-05] MEDS ORDERED: methylPREDNISolone Sod Succ/PF 125 MG/2 ML VIAL ONE (18:13)
[2020-06-05] MEDS ORDERED: methylPREDNISolone Sod Succ 40 MG VIAL IVP SCH (18:30)
[2020-06-05] MEDS ORDERED: HYDROcodone/Acetaminophen 10/325 mg Tablet PO PRN (20:05)
[2020-06-05] MEDS: Morphine 2 MG/ML VIAL SLOW IVP PRN ×2 (20:20→22:03)
[2020-06-05] MEDS ORDERED: Senokot 8.6 MG TAB PO PRN (20:47)
[2020-06-05] MEDS ORDERED: Ondansetron ODT 4 MG TAB PO PRN (21:00)
[2020-06-05] MEDS ORDERED: Calcium Carbonate 500 MG ChewTAB PO PRN (21:00)
--- NOTE | 2020-06-05 21:08 | RAD ---
2 VIEWS LUMBOSACRAL SPINE: Date: 06/05/2020 HISTORY: Dorsal column stimulator insertion. COMPARISON: 03/17/2018. FINDINGS/IMPRESSION: Multiple limited fluoroscopic views of the lumbosacral spine were submitted for interpretation. There is a dorsal column stimulator with the tips of the stimulator along the lateral aspect of L1 likely within the neural foramina at L1-2. The vertebral bodies demonstrate normal alignment without subluxa tion. POS: EAA
[2020-06-05] MEDS: Cyclobenzaprine 10 MG TAB PO SCH (21:49)
[2020-06-05] MEDS: cloNIDine 0.1 MG TAB PO SCH (21:49)
[2020-06-05] MEDS: Amitriptyline HCl 10 MG TAB PO SCH (21:50)
[2020-06-05] MEDS: Hydroxychloroquine Sulfate 200 MG TAB PO SCH (21:50)
[2020-06-05] MEDS: Mirtazapine 15 MG TAB PO SCH (21:50)
[2020-06-05 21:59] VITALS: BMI 19.7
[2020-06-05] MEDS ORDERED: Morphine 4 MG/ML VIAL SLOW IVP SCH (22:45)
[2020-06-05] MEDS ORDERED: Promethazine HCl 25 MG/ML VIAL SLOW IVP SCH (22:45)
[2020-06-05] MEDS ORDERED: Promethazine HCl 25 MG/ML VIAL SLOW IVP PRN (23:15)
[2020-06-05] MEDS: Sodium Chloride 0.9% 1,000 ML IV SCH (23:18)
[2020-06-05] MEDS ORDERED: Morphine 2 MG/ML VIAL SLOW IVP PRN (23:25)
[2020-06-05] MEDS ORDERED: Morphine 4 MG/ML VIAL SLOW IVP PRN (23:27)
--- NOTE | 2020-06-06 00:11 | OP ---
DATE OF PROCEDURE: 06/05/2020 PREOPERATIVE DIAGNOSES: 1. Complex regional pain syndrome of the right lower extremity. 2. Complex regional pain syndrome of the left lower extremity. 3. Chronic pain syndrome. POSTOPERATIVE DIAGNOSES: 1. Complex regional pain syndrome of the right lower extremity. 2. Complex regional pain syndrome of the left lower extremity. 3. Chronic pain syndrome. PROCEDURES PERFORMED: 1. Spinal cord stimulator generator implant. 2. Spinal cord stimulator lead implant x2. ESTIMATED BLOOD LOSS: 5 mL. DESCRIPTION OF PROCEDURE: The patient was taken to the procedure room and placed prone on the procedure room table. A time-out was performed. The back was prepped with DuraPrep and sterile drapes were applied. We used fluoroscopy to locate the interspace of L1-2. We anesthetized the skin and made a vertical incision and blunt dissected this down to the fascia. We used the right paramedian technique to insert the 14-gauge Touhy needle into the interspinous ligament of L1-2. We used loss of resistance to air to achieve access to the epidural space. Aspiration was negative for heme and CSF. We inserted the 4-contact lead into the needle with its sheath. This was taken to the left L1 foramen and passed through the ligament easily. The lead was then threaded next to the DRG. The sheath was removed and double loop was created. We took AP and lateral views to confirm the correct placement. The needle was removed, taking care not to remove the lead. An anchor was placed over the lead and this was secured to the fascia using 2-0 silk suture x1. We then attempted using a left paramedian technique, engaged another 14-gauge Touhy needle into the interspinous ligament. Once we achieved access to the epidural space, there was negative aspiration for heme or CSF. We threaded the lead through a sheath into the epidural space and went to the right L1 foramen. Multiple attempts were made. The lead would pass through the foramen, however, go too anterior. After approximately 5 attempts, we successfully passed the lead through and only one of the contacts was anterior. The rest of the three contacts were exactly where they needed to be. Stimulation was performed. The patient felt paresthesia in all her pain areas. The needle was removed with the lead in place after a double loop was performed for a tension relief loop. [place] was placed over this lead and this was secured to the fascia using 2-0 silk suture x1. We then anesthetized the upper left buttock and made a horizontal incision. We blunt dissected this down to [place] fascia and blunt dissected inferior and superior to make a pocket. We used the tunneling device to thread the lead from the lead pocket to the battery pocket. The leads were connected to the battery and all impedances were checked, which were good. We slid the battery into the pocket easily. We approximated all the fascia layers using 2-0 Vicryl sutures in simple interrupted and horizontal mattress stitches in at least two layers. We then used 3-0 Rapide to approximate the skin layer using a subcuticular stitch. We used a layer of Dermabond to glue these wounds after dried. We placed sterile 4x4s over the wounds and placed Medipore tape over this. The patient was taken to the Day Stay under stable condition. Job ID: [id number] [id number]
[2020-06-06] MEDS ORDERED: Fentanyl 100 MCG/2 ML VIAL SLOW IVP PRN (08:09)
[2020-06-06] MEDS ORDERED: methylPREDNISolone Sod Succ/PF 125 MG/2 ML VIAL IVP SCH (08:15)
[2020-06-06] MEDS ORDERED: fentaNYL 50 mcg/hour Patch TD SCH (08:30)
[2020-06-06] MEDS: Losartan 25 MG TAB PO SCH (08:41)
[2020-06-06] MEDS: Amlodipine 10 MG TAB PO SCH (08:41)
[2020-06-06] MEDS: cloNIDine 0.1 MG TAB PO SCH ×2 (08:41→21:02)
[2020-06-06] MEDS: HYDROcodone/Acetaminophen 10/325 mg Tablet PO PRN ×4 (08:42→21:58)
[2020-06-06] MEDS: Hydroxychloroquine Sulfate 200 MG TAB PO SCH ×2 (08:43→21:01)
[2020-06-06] MEDS: Dicyclomine 10 MG CAP PO SCH ×3 (08:43→17:57)
[2020-06-06] MEDS: Ondansetron PF 4 MG/2 ML Vial SLOW IVP PRN (08:51)
--- NOTE | 2020-06-06 09:22 | PRG ---
DATE OF SERVICE: 06/06/2020 TIME OF SERVICE: At 7:30 in the morning. SUBJECTIVE: The patient is a 54-year-old female with history of lupus and bilateral hip and bilateral shoulder replacements with chronic bilateral hip pain, who underwent a spinal cord stimulator implant yesterday. We are having trouble with her pain control after the procedure; therefore, we placed her in obs for 23 hours last night. She was also having nausea and vomiting. Overnight, the patient says that she continued to have pain and required 6 mg of morphine IV over 12 hours. She did state that she did have some sleep and her nausea and vomiting did get better. She is trying to eat this morning, however, has not attempted to do so. She has been up and has voided throughout the night. So, she continues to have mostly right lower back pain which is similar to her previous pain, however, flared up. She was having 10/10 pain, she states prior to the morphine. This morning, the pain is better, however, with movement it does increase. The pain is aching, sharp and stabbing in nature. It does not radiate down the lower extremities. Currently, her hip pain is resolved and under control. She denies fever, chills, shortness of breath, chest pain, or orthopnea. She denies any diarrhea or constipation. She admits to some nausea, however, has not vomited since last night. OBJECTIVE: VITAL SIGNS: Her temperature this morning is 98.6, pulse is 67, respirations of 16, O2 saturation 98 on room air, blood pressure is 135/72. GENERAL: The patient is alert and oriented x4 this morning, in no acute distress. When she moves, she is in mild distress. HEENT: Normocephalic, atraumatic. NECK: Supple. No masses. CHEST: Symmetric. Nonlabored respirations. Clear to auscultation. HEART: Normal rate and rhythm. No murmurs, rubs, or gallops. ABDOMEN: Soft, nontender, nondistended. MUSCULOSKELETAL: 5/5 strength in bilateral upper extremities. 5/5 strength in bilateral lower extremity except for 4/5 in bilateral dorsiflexion of the ankles. Tenderness to palpation at right lower back and right sacrum. She does also have tenderness over the bandage sites on the left side and the battery pocket site on the left side. No signs of infection. ASSESSMENT: 1. Complex regional pain syndrome of the right lower extremity. 2. Complex regional pain syndrome of the left lower extremity. 3. Chronic pain syndrome. 4. Postoperative pain and nausea and vomiting. PLAN: The procedure yesterday was technically challenging, however, successful. We did have to pass the right L1 lead approximately 5 times prior to achieving success in the correct location. This can cause nerve root irritation, therefore, I did give steroids in the epidural space; however, this can take several days to take effect. I believe her remaining pain is due to her wounds as well as her irritation of the right L1 nerve root. I will write an order for 80 mg of Solu-Medrol IV daily with the first dose now, however, she will probably only need one or two doses. We had ordered Bactrim for postoperative prophylaxis because we had put external hardware in. However, since she is not taking p.o. and still has some nausea, we will switch this to Levaquin 500 mg IV daily until she is able to take p.o. I will increase her fentanyl patch from 25 mcg patch which she uses at home to a 50 mcg patch to help with her postoperative pain control. She will continue hydrocodone 1 to 2 tablets p.o. q.4 hours p.r.n. moderate to severe pain. She has not taken this since she has been here because of the nausea and vomiting. She currently takes approximately two 20 mg of hydrocodone daily at home; therefore, she might require an increase in this due to the postoperative pain. If she is unable to take p.o., we have been giving her morphine IV; however, she states that she does not like how morphine makes her feel, therefore since we cannot prescribe Dilaudid IV on the floor, we will switch to fentanyl IV 25 to 50 mcg q.2 hours p.r.n. severe pain, which if she cannot take p.o. [place]. We will continue her home medications as prescribed and continue monitoring. If she starts feeling better and has less pain and is able to ambulate better on her own, we will likely discharge her this afternoon. If she continues to have pain which stops her from ambulating, we will likely have to keep her and admit her. She has SCDs for DVT prophylaxis. She is on p.r.n. antacids and p.r.n. laxatives for GI prophylaxis. Job ID: [id number]
[2020-06-06] MEDS: Sodium Chloride 0.9% 1,000 ML IV SCH (13:05)
[2020-06-06] MEDS: Fentanyl 100 MCG/2 ML VIAL SLOW IVP PRN (14:40)
--- NOTE | 2020-06-06 18:02 | PRG ---
DATE OF SERVICE: 06/06/2020 TIME OF SERVICE: 11:45 in the morning. The patient is doing slightly better after the Solu-Medrol dose as well as the change in her medication. A fentanyl 50 mcg patch was placed and she is now taking oral [place] without nausea and vomiting. She has not required any IV pain medicine as of yet. She still continues to have pain with any type of movement and the pain is similar to what was described in the previous note. I believe that it is best for the patient to have an evaluation for inpatient rehab as her treatment may require a longer stay for convalescence. Also, this will help her become more mobile, so that when she goes home, she has a decrease in morbidity and also improvement in her function and ADLs. Due to her comorbidities, especially her lupus, she has gone to inpatient rehab after her previous surgeries and this has greatly improved her outcome. Therefore, I will put in a consult for PT, OT evaluation and also evaluation for inpatient rehab. I have discussed this with her social security assessor, and we will continue to monitor. Job ID: [id number]
[2020-06-06] MEDS: Cyclobenzaprine 10 MG TAB PO SCH (21:01)
[2020-06-06] MEDS: Amitriptyline HCl 10 MG TAB PO SCH (21:02)
[2020-06-06] MEDS: Mirtazapine 15 MG TAB PO SCH (21:02)
[2020-06-07] MEDS: HYDROcodone/Acetaminophen 10/325 mg Tablet PO PRN ×5 (02:13→21:41)
[2020-06-07] MEDS: Sodium Chloride 0.9% 1,000 ML IV SCH ×2 (02:17→07:28)
[2020-06-07] MEDS: Fentanyl 100 MCG/2 ML VIAL SLOW IVP PRN (08:53)
[2020-06-07] MEDS: Hydroxychloroquine Sulfate 200 MG TAB PO SCH ×2 (08:54→21:40)
[2020-06-07] MEDS: Dicyclomine 10 MG CAP PO SCH ×3 (08:54→17:06)
[2020-06-07] MEDS: Ondansetron PF 4 MG/2 ML Vial SLOW IVP PRN (08:54)
[2020-06-07] MEDS: Amlodipine 10 MG TAB PO SCH (08:55)
[2020-06-07] MEDS: cloNIDine 0.1 MG TAB PO SCH ×2 (08:55→21:40)
[2020-06-07] MEDS: Losartan 25 MG TAB PO SCH (08:55)
[2020-06-07] MEDS ORDERED: methylPREDNISolone Sod Succ/PF 125 MG/2 ML VIAL IVP SCH (09:00)
[2020-06-07 09:10] LABS: #Lymphocytes 1.3 thou/uL (1.20-3.40); #Monocytes 1.4 thou/uL (0.11-0.59); #Neutrophils 9.2 thou/uL (1.40-6.50); %Basophils 0.1 % (0.0-1.0); %Eosinophils 0.1 % (0.0-10.0); %Lymphocytes 10.6 % (21.0-51.0); %Monocytes 11.9 % (0.0-10.0); %Neutrophils 77.3 % (42.0-75.0); Hemoglobin 11.1 g/dL (12.0-16.0); Mean Corpuscular HGB CONC 31.5 g/dL (32.0-36.0); Mean Corpuscular Hemoglobin 25.9 pg (27.0-31.0); Mean Corpuscular Volume 82.3 fL (78.0-98.0); Mean Platelet Volume 8.5 fL (7.4-10.4); Platelet Count 231 thou/uL (130-400); Red Blood Cell (RBC) Count 4.27 mill/uL (4.20-5.40); White Blood Cell (WBC) Count 11.9 thou/uL (4.8-10.8)
[2020-06-07] MEDS ORDERED: Potassium Chloride 40 MEQ in Sodium Chloride 0.9% 250 ML 250 ML IVPB SCH (09:15)
[2020-06-07 09:18] LABS: ALT (SGPT) 18 U/L (8-55); AST (SGOT) 21 U/L (5-34); Albumin 3.5 g/dL (3.5-5.0); Alkaline Phosphatase 53 U/L (40-110); Anion Gap 12 mmol/L (10-20); BUN (Urea Nitrogen) 17 mg/dL (9.8-20.1); Bilirubin, Total 0.3 mg/dL (0.2-1.2); Calc. Creatinine Clearance 93 mL/min (70-130); Calcium 8.4 mg/dL (7.8-10.44); Carbon Dioxide 28 mmol/L (22-29); Chloride 107 mmol/L (98-107); Globulin 3.5 g/dL (2.4-3.5); Glucose 102 mg/dL (70-105); Potassium 3.6 mmol/L (3.5-5.1); Sodium 143 mmol/L (136-145)
[2020-06-07] MEDS ORDERED: fentaNYL 75 mcg/hour Patch TD SCH (11:00)
[2020-06-07] MEDS: Cyclobenzaprine 10 MG TAB PO SCH (21:40)
[2020-06-07] MEDS: Mirtazapine 15 MG TAB PO SCH (21:40)
[2020-06-07] MEDS: Amitriptyline HCl 10 MG TAB PO SCH (21:40)
[2020-06-07] MEDS: Sulfameth/Trimethoprim DS 800-160mg TAB PO SCH (21:41)
--- NOTE | 2020-06-08 00:07 | PRG ---
DATE OF SERVICE: 06/07/2020 TIME OF SERVICE: At 8:30 this morning. SUBJECTIVE: The patient is a 54-year-old female with history of lupus and bilateral hip and bilateral shoulder replacements with chronic bilateral hip pain, who underwent a spinal cord stimulator implant 2 days ago. Today is postop day 2. Her pain is a little better controlled this morning. She has required approximately 60 mg of hydrocodone over the last 24 hours. She currently has her 50 mcg of fentanyl patch on. She has been given 2 doses of Solu-Medrol now through the IV. She did get up and walk, however, developed severe pain in her right lower back and had to go back in bed. She was evaluated by Physical Therapy for inpatient rehab. However, we do not know the status of this currently. The pain is worse in the right lower back, it is a 6/10, similar to her previous right lower back pain, however, flared up. The pain is aching and sharp and stabbing in nature. It does not radiate to the lower extremity. Her hip pain is resolved and under control. Denies fever, chills, shortness of breath, chest pain, and orthopnea. She denies diarrhea, constipation, however, has not had a bowel movement in 2 days. She denies nausea this morning. OBJECTIVE: VITAL SIGNS: Pulse of 74, respirations 18, O2 saturation 96 on room air, blood pressure 124/64. She has been able to the eat. She is getting up to void. In's and out's recorded. GENERAL: Alert and oriented x4, in no acute distress. She has mild distress on movement. HEENT: Normocephalic, atraumatic. NECK: Supple. No masses. CHEST: Symmetric. Nonlabored respirations. Clear to auscultation bilaterally. HEART: Regular rate and rhythm. No murmurs, rubs, gallops. ABDOMEN: Soft, nontender, nondistended. MUSCULOSKELETAL: 5/5 strength in bilateral upper extremity, 5/5 strength in bilateral lower extremity except for 4/5 strength in bilateral dorsiflexion of the ankles. Tenderness to palpation of the right lower back and right sacrum. She also has tenderness over wound site. Bandages were removed and wounds look good, healing well. No signs and symptoms of infection. ASSESSMENT: 1. Complex regional pain syndrome of the right lower extremity. 2. Complex regional pain syndrome of the left lower extremity. 3. Chronic pain syndrome. 4. Postoperative pain. PLAN: The patient has been doing better overnight, however, continues to be in severe pain, which would be hard to handle at home due to her limited ambulation. She has received 2 doses of IV Solu-Medrol now and I believe this is helping with the inflammation of the nerve root. We will stop this today. We are going to stop the Levaquin and switch to Bactrim DS twice a day for antibiotic prophylaxis. The fentanyl patch was switched to 50 mcg patch; however, she was using about 60 mg of hydrocodone over the last 24 hours. Therefore, I will change it to a 75 mcg patch. She has not needed IV fentanyl, which is a good sign that she is improving. She is taking p.o. at the moment. She has not had a bowel movement in 2 days. Therefore, I will start Movantik 12.5 mg p.o. q.a.m. to help her with narcotic induced constipation. She has been seen by an inpatient rehab and PT and is awaiting insurance approval for this. I believe this would be the best care for her as it will give her more time to recover prior to going home to prevent readmission and increase in morbidity. Job ID: [id number]
[2020-06-08] MEDS: Sodium Chloride 0.9% 1,000 ML IV SCH ×2 (00:15→05:57)
[2020-06-08] MEDS: Losartan 25 MG TAB PO SCH (08:31)
[2020-06-08] MEDS: Amlodipine 10 MG TAB PO SCH (08:31)
[2020-06-08] MEDS: Ondansetron PF 4 MG/2 ML Vial SLOW IVP PRN (08:31)
[2020-06-08] MEDS: Sulfameth/Trimethoprim DS 800-160mg TAB PO SCH ×2 (08:31→20:42)
[2020-06-08] MEDS: cloNIDine 0.1 MG TAB PO SCH ×2 (08:32→20:41)
[2020-06-08] MEDS: Dicyclomine 10 MG CAP PO SCH ×3 (08:32→16:26)
[2020-06-08] MEDS: Hydroxychloroquine Sulfate 200 MG TAB PO SCH ×2 (08:32→20:43)
[2020-06-08] MEDS: HYDROcodone/Acetaminophen 10/325 mg Tablet PO PRN ×3 (09:12→20:42)
--- NOTE | 2020-06-08 12:37 | PRG ---
DATE OF SERVICE: 06/08/2020 TIME OF SERVICE: 7:30 a.m. SUBJECTIVE: The patient has been doing better overnight. She slept through the night without requiring pain medication. She is currently on fentanyl 75 mcg patch q.72 hours, which was placed yesterday. We had stop the Solu-Medrol. She has required approximately four tablets of hydrocodone 10/325 mg over the last 24 hours, which is a good decrease since the day before. She got up and walked. She says the pain is about 6/10 currently. She states she is eating and drinking, currently postop day 3. Pain is similar, but less severe to what it was yesterday. It is in right lower back, it is worse with ambulation and movement. It is described as aching and sharp. 6/10, it does not radiate to the lower extremity. Hip pain is currently still resolved with the stimulator. Denies fevers, chills, shortness of breath, chest pain, or orthopnea. Denies diarrhea, constipation, or nausea. OBJECTIVE: VITAL SIGNS: Temperature 98.9, pulse 86, respirations 16, O2 saturation 97 on room air, blood pressure 120/67. GENERAL: Alert and oriented x4, in no acute distress. HEENT: Normocephalic and atraumatic. NECK: Supple. No masses. CHEST: Symmetric, nonlabored respirations. Clear to auscultation bilaterally. HEART: Regular rate and rhythm. No murmurs, rubs, or gallops. ABDOMEN: Soft, nontender, nondistended. MUSCULOSKELETAL: 5/5 strength in bilateral upper and lower extremities, except for 4/5 strength in bilateral dorsiflexion of the ankles. Tenderness to palpation, right lower back and right sacrum. She has tenderness over the wound site. Bandages were removed. Iodine was placed over the wound site and sterile dressings were reapplied. Healing well. No signs or symptoms of infection. LABORATORY DATA: From yesterday, white blood cell count 11.9, hemoglobin and hematocrit are 11.1/35.1, platelet count 231. Chemistries are all within normal limits. ASSESSMENT: 1. Complex regional pain syndrome of the right lower extremity. 2. Complex regional pain syndrome of the left lower extremity. 3. Chronic pain syndrome. 4. Postoperative pain. 5. Increased white blood cell count. PLAN: The increase in white blood cell count is likely due to the steroid dose that she has received over last 3 days. There are no signs or symptoms of infection, therefore I am confident that she does not have any infectious processes going on. She currently is continuing on Bactrim DS one p.o. b.i.d. for postoperative prophylaxis for another 4 days. She is doing better overnight. Her pain is now down to 5-6/10, which is down from 10/10 it was two days ago. She has used less [place] in the last 24 hours and I think this will continue to improve and decrease over time. Continue Movantik for GI prophylaxis. SCDs for DVT prophylaxis. She has been evaluated and accepted into inpatient rehab and they will be transferring her tomorrow morning. Okay to discharge per Pain Management Team/primary team. She will follow up in my office once discharged from rehab. Job ID: [id number]
[2020-06-08] MEDS: Cyclobenzaprine 10 MG TAB PO SCH (20:41)
[2020-06-08] MEDS: Amitriptyline HCl 10 MG TAB PO SCH (20:41)
[2020-06-08] MEDS: Mirtazapine 15 MG TAB PO SCH (20:42)
[2020-06-09] MEDS: HYDROcodone/Acetaminophen 10/325 mg Tablet PO PRN ×3 (03:58→12:29)
[2020-06-09] MEDS: Amlodipine 10 MG TAB PO SCH (08:12)
[2020-06-09] MEDS: cloNIDine 0.1 MG TAB PO SCH (08:13)
[2020-06-09] MEDS: Dicyclomine 10 MG CAP PO SCH ×2 (08:13→12:29)
[2020-06-09] MEDS: Sulfameth/Trimethoprim DS 800-160mg TAB PO SCH (08:13)
[2020-06-09] MEDS: Losartan 25 MG TAB PO SCH (08:13)
[2020-06-09] MEDS: Hydroxychloroquine Sulfate 200 MG TAB PO SCH (08:13)
[2020-06-09 16:06] VITALS: BP 132/68; TEMP 99.3
[2020-06-12] MEDS ORDERED: cloNIDine 0.1mg/24 Hour PATCH TD SCH (09:00)
[2020-07-05] MEDS ORDERED: SODIUM CHLORIDE 0.9% IVPB SCH (20:00)
[2020-07-05] MEDS ORDERED: ABATACEPT IVPB SCH (20:00)
== END 2020-06-09 16:43 | DRG 29 ==
LOC: SDC 10:14 → SURG B 17:53 → OBSVTOIN 06-07 15:59
PROVIDERS: ADMIT Specialist; ATTEND Specialist
PROC: 0JH70DZ Insertion of Multiple Array Stimulator Generator into Back Subcutaneous Tissue and Fascia, Open Approach (ICD-10-PCS; principal; 2020-06-05)
PROC: 00HV3MZ Insertion of Neurostimulator Lead into Spinal Cord, Percutaneous Approach (ICD-10-PCS; 2020-06-05)
PROC: 00HV3MZ Insertion of Neurostimulator Lead into Spinal Cord, Percutaneous Approach (ICD-10-PCS; 2020-06-05)
DX: G57.73 Causalgia of bilateral lower limbs (principal); G89.4 Chronic pain syndrome; Z96.612 Presence of left artificial shoulder joint; Z96.611 Presence of right artificial shoulder joint; G89.18 Other acute postprocedural pain; Z96.643 Presence of artificial hip joint, bilateral; Z96.652 Presence of left artificial knee joint; I10 Essential (primary) hypertension; F32.9 Major depressive disorder, single episode, unspecified; M06.9 Rheumatoid arthritis, unspecified; L93.0 Discoid lupus erythematosus; Z90.710 Acquired absence of both cervix and uterus; Z90.89 Acquired absence of other organs; Z79.891 Long term (current) use of opiate analgesic
CPT/HCPCS: 36415; 72100; 76000; 80053; 85025; 96365; 96366; 96375; 96376; C1767; G0378; J0171; J0690; J1956; J2250; J2270; J2405; J2550; J2704; J2920; J2930; J3010; J3370; J3490; S0020

== ENCOUNTER 2020-06-18 12:05 | Outpatient (CLI) | payer BC ==
--- NOTE | 2020-06-18 13:40 | RAD ---
XR Chest Pa Lat STANDARD HISTORY: Dyspnea COMPARISON: 04/07/2020 and 03/20/2018 FINDINGS: The heart size is normal. The lungs are well expanded without focal areas of consolidation, pneumothorax or pleural effusions. Chronic changes again seen. There are postop changes of bilateral humeral head prostheses. IMPRESSION: No radiographic evidence of acute cardiopulmonary process.
== END 2020-06-18 12:06 | disposition home or self-care (01) ==
LOC: BICRAD 12:05
PROVIDERS: ATTEND Internal Medicine Critical Care Medicine
DX: R06.00 Dyspnea, unspecified (principal)
CPT/HCPCS: 71046

== ENCOUNTER 2020-06-25 10:28 | Emergency (ER) | payer BC ==
[2020-06-25] MEDS ORDERED: Iopamidol-370 76% 500 ML 1 ML ONE (10:40)
[2020-06-25] MEDS ORDERED: Ketorolac Tromethamine 30 MG/ML VIAL ONE (11:20)
[2020-06-25] MEDS ORDERED: Acetaminophen 500 MG TAB ONE (11:20)
--- NOTE | 2020-06-25 11:32 | RAD ---
XR Chest 1 View Portable History: Dyspnea Comparison: Radiograph June 18, 2020 Findings: Lungs are clear. No pneumothorax or effusion. Cardiac silhouette and mediastinal contours a re within normal limits. Electrode tips project over the right and left upper quadrant of the abdomen. Scarring lung apices. Impression: No acute intrathoracic abnormality.
[2020-06-25 12:09] LABS: ALT (SGPT) 24 U/L (8-55); AST (SGOT) 28 U/L (5-34); Albumin 3.7 g/dL (3.5-5.0); Alkaline Phosphatase 54 U/L (40-110); Anion Gap 14 mmol/L (10-20); BUN (Urea Nitrogen) 8 mg/dL (9.8-20.1); Bilirubin, Total 0.6 mg/dL (0.2-1.2); Calc. Creatinine Clearance 0 mL/min (70-130); Calcium 8.7 mg/dL (7.8-10.44); Carbon Dioxide 29 mmol/L (22-29); Chloride 100 mmol/L (98-107); Globulin 3.8 g/dL (2.4-3.5); Glucose 85 mg/dL (70-105); Lipase 7 U/L (8-78); Potassium 3.8 mmol/L (3.5-5.1); Protein, Total 7.5 g/dL (6.0-8.3); Sodium 139 mmol/L (136-145)
[2020-06-25 12:15] LABS: #Lymphocytes 1.1 thou/uL (1.20-3.40); #Monocytes 0.7 thou/uL (0.11-0.59); #Neutrophils 2.8 thou/uL (1.40-6.50); %Eosinophils 0.6 % (0.0-10.0); %Lymphocytes 24.3 % (21.0-51.0); %Monocytes 14.6 % (0.0-10.0); %Neutrophils 59.4 % (42.0-75.0); Hemoglobin 11.5 g/dL (12.0-16.0); Mean Corpuscular HGB CONC 31.9 g/dL (32.0-36.0); Mean Corpuscular Hemoglobin 26.4 pg (27.0-31.0); Mean Corpuscular Volume 82.8 fL (78.0-98.0); Mean Platelet Volume 8.2 fL (7.4-10.4); Platelet Count 282 thou/uL (130-400); RBC Distribution Width 13.9 % (11.5-14.5); Red Blood Cell (RBC) Count 4.35 mill/uL (4.20-5.40); White Blood Cell (WBC) Count 4.7 thou/uL (4.8-10.8)
--- NOTE | 2020-06-25 13:05 | CT ---
CT abdomen and pelvis with IV contrast HISTORY: Abdomen pain. COMPARISON: 04/07/2020. FINDINGS: The lung bases are clear. Cyst at the superior pole of the right kidney is 1.2 cm diameter on today's axial images. Nonenlarged, nonspecific lymph nodes are scattered about the retroperitoneum. Large amount of stool throughout the colon, greater than on the prior exam. No evidence of bowel obst ruction or inflammation. Appendix is unremarkable. Bilateral hip prostheses remain in place. Dorsal column stimulator device is now in place, with wires entering the posterior aspect of the cent ral canal at the L1-2 level. The wires loop superiorly to the level of the mid T12 vertebral body and then descend to exit each L1-2 neural foramen. The distal end of the right lead lies anterior to the right L1 nerve root and the left lead posterior to the L1 nerve root. No abnormal fluid collections are apparent. IMPRESSION : No acute abnormalities are demonstrated. Constipation. Interval placement of dorsal column stimulator device, as detailed above, with the distal end of each lead exiting the respective L1-2 neural foramen.
[2020-06-25 13:32] LABS: Bilirubin Negative (Negative); Blood, Urine Negative (Negative); Clarity Clear (Clear); Glucose, Urine (Dipstick) Normal (Negative); Ketone, Urine Negative (Negative); Leukocyte 250 Leu/uL (Negative); Nitrite Negative (Negative); Protein, Urine (Dipstick) Negative (Neg-Trace); RBC/HPF 0-3 HPF (0-3); Specific Gravity, Urine 1.016 (1.002-1.036); Squamous Epithelial 0-3 HPF (0-3); Urobilinogen Normal mg/dL (Less than 2)
[2020-06-25 13:36] LABS: Bacteria/HPF 1+ HPF (None Seen)
== END 2020-06-25 13:25 | disposition home or self-care (01) ==
LOC: ERS 10:28
DX: R53.1 Weakness (principal); Z79.899 Other long term (current) drug therapy; Z79.891 Long term (current) use of opiate analgesic; I10 Essential (primary) hypertension
CPT/HCPCS: 71045; 74177; 80053; 81003; 81015; 83605; 83690; 84484; 85025; 93005; 96374; J1885; Q9967

== ENCOUNTER 2020-06-26 11:24 | Emergency (ER) | payer BC ==
[2020-06-26] MEDS ORDERED: Ketorolac Tromethamine 30 MG/ML VIAL ONE (12:07)
[2020-06-26] MEDS ORDERED: cefTRIAXone\\ROCEPHIN 1 GM VIAL ONE (12:07)
[2020-06-26 12:10] LABS: #Basophils 0.1 thou/uL (0.0-0.2); #Lymphocytes 0.9 thou/uL (1.20-3.40); #Monocytes 0.4 thou/uL (0.11-0.59); #Neutrophils 1.7 thou/uL (1.40-6.50); %Eosinophils 1.2 % (0.0-10.0); %Lymphocytes 28.6 % (21.0-51.0); %Monocytes 14.2 % (0.0-10.0); %Neutrophils 54.1 % (42.0-75.0); Hemoglobin 11.6 g/dL (12.0-16.0); Mean Corpuscular HGB CONC 31.5 g/dL (32.0-36.0); Mean Corpuscular Hemoglobin 25.7 pg (27.0-31.0); Mean Corpuscular Volume 81.6 fL (78.0-98.0); Platelet Count 291 thou/uL (130-400); RBC Distribution Width 13.9 % (11.5-14.5); Red Blood Cell (RBC) Count 4.51 mill/uL (4.20-5.40); White Blood Cell (WBC) Count 3.1 thou/uL (4.8-10.8)
[2020-06-26 12:31] LABS: ALT (SGPT) 22 U/L (8-55); AST (SGOT) 27 U/L (5-34); Alkaline Phosphatase 59 U/L (40-110); Anion Gap 16 mmol/L (10-20); BUN (Urea Nitrogen) 8 mg/dL (9.8-20.1); Bilirubin, Total 0.5 mg/dL (0.2-1.2); Calc. Creatinine Clearance 0 mL/min (70-130); Calcium 8.9 mg/dL (7.8-10.44); Carbon Dioxide 27 mmol/L (22-29); Chloride 103 mmol/L (98-107); Globulin 4.1 g/dL (2.4-3.5); Glucose 85 mg/dL (70-105); Potassium 3.7 mmol/L (3.5-5.1); Protein, Total 8.1 g/dL (6.0-8.3); Sodium 142 mmol/L (136-145)
--- NOTE | 2020-06-26 12:47 | RAD ---
CHEST VIEW: HISTORY: Fever. COMPARISON: Radiograph prior day. FINDINGS: No confluent airspace consolidation, pneumothorax, or effusion. Electrode tips project over the bila teral L1-L2 neural foramina. Bilateral shoulder arthroplasties.. IMPRESSION: No acute intrathoracic abnormality. POS: [facility]
[2020-06-26 14:50] LABS: Bilirubin Negative (Negative); Blood, Urine Negative (Negative); Clarity Clear (Clear); Glucose, Urine (Dipstick) Normal (Negative); Ketone, Urine Negative (Negative); Leukocyte Negative Leu/uL (Negative); Nitrite Negative (Negative); Protein, Urine (Dipstick) 10 mg/dL (Neg-Trace); Specific Gravity, Urine 1.024 (1.002-1.036); Urobilinogen Normal mg/dL (Less than 2)
== END 2020-06-26 14:50 | disposition home or self-care (01) ==
LOC: ERS 11:24
DX: N39.0 Urinary tract infection, site not specified (principal); Z79.899 Other long term (current) drug therapy; Z79.891 Long term (current) use of opiate analgesic; I10 Essential (primary) hypertension
CPT/HCPCS: 36415; 71045; 80053; 81003; 83605; 85025; 87040; 87086; 96365; 96375; J0696; J1885

== ENCOUNTER 2020-11-19 12:23 | Outpatient (CLI) | payer BC | END 2020-11-19 12:24 | disposition home or self-care (01) | LOC: BICRAD 12:23 | PROVIDERS: ATTEND Internal Medicine Nephrology | DX: R80.9 Proteinuria, unspecified (principal) | CPT/HCPCS: 71046 ==

== ENCOUNTER 2021-01-22 08:50 | Emergency (ER) | payer BC | END 2021-01-22 12:15 | disposition home or self-care (01) | LOC: ERS 08:50 | DX: G62.9 Polyneuropathy, unspecified (principal); E87.6 Hypokalemia; I10 Essential (primary) hypertension; M06.9 Rheumatoid arthritis, unspecified; M87.9 Osteonecrosis, unspecified; Z79.1 Long term (current) use of non-steroidal anti-inflammatories (NSAID); Z79.899 Other long term (current) drug therapy | CPT/HCPCS: 70450; 72125; 80053; 84484; 85025; 93005 ==

== ENCOUNTER 2021-04-15 11:02 | Outpatient (CLI) | payer BC | END 2021-04-15 11:03 | disposition home or self-care (01) | LOC: BICRAD 11:02 | PROVIDERS: ATTEND Internal Medicine | DX: R06.00 Dyspnea, unspecified (principal); M54.9 Dorsalgia, unspecified; J98.4 Other disorders of lung | CPT/HCPCS: 71046; 72040; 72072 ==

== ENCOUNTER 2021-04-17 08:36 | Emergency (ER) | payer OTHER, BC ==
[2021-04-17] MEDS ORDERED: Morphine 4 MG/ML VIAL ONE (09:37)
[2021-04-17] MEDS ORDERED: Lorazepam 2 MG/ML VIAL ONE (09:44)
[2021-04-17 10:11] LABS: Hemoglobin 11.7 g/dL (12.0-16.0); Mean Corpuscular Hemoglobin 25.7 pg (27.0-31.0); Mean Corpuscular Volume 80.5 fL (78.0-98.0); Platelet Count 227 thou/uL (130-400); RBC Distribution Width 12.1 % (11.5-14.5); Red Blood Cell (RBC) Count 4.53 mill/uL (4.20-5.40); White Blood Cell (WBC) Count 3.3 thou/uL (4.8-10.8)
[2021-04-17] MEDS ORDERED: Ketorolac Tromethamine 30 MG/ML VIAL ONE (10:18)
[2021-04-17 10:38] LABS: Band 9 % (5-11); Lymphocytes 32 % (21-51); MDiff Complete? YES; Monocytes 15 % (0-10); Neutrophil 44 % (42-75); Platelet Morphology Comment Appears Adequate; RBC Morphology Normal
[2021-04-17 10:41] LABS: ALT (SGPT) 15 U/L (8-55); AST (SGOT) 25 U/L (5-34); Albumin 3.8 g/dL (3.5-5.0); Alkaline Phosphatase 61 U/L (40-110); Anion Gap 12 mmol/L (10-20); BUN (Urea Nitrogen) 12 mg/dL (9.8-20.1); Bilirubin, Total 0.5 mg/dL (0.2-1.2); Calc. Creatinine Clearance 0 mL/min (70-130); Calcium 8.9 mg/dL (7.8-10.44); Carbon Dioxide 29 mmol/L (22-29); Chloride 102 mmol/L (98-107); Globulin 4.1 g/dL (2.4-3.5); Glucose 89 mg/dL (70-105); Magnesium 1.9 mg/dL (1.6-2.6); Potassium 3.4 mmol/L (3.5-5.1); Protein, Total 7.9 g/dL (6.0-8.3); Sodium 140 mmol/L (136-145)
== END 2021-04-17 10:14 | disposition home or self-care (01) ==
LOC: ERS 08:36
DX: R55 Syncope and collapse (principal); S09.90XA Unspecified injury of head, initial encounter; M62.838 Other muscle spasm; R91.1 Solitary pulmonary nodule; F41.9 Anxiety disorder, unspecified; I10 Essential (primary) hypertension; M06.9 Rheumatoid arthritis, unspecified; W01.198A Fall on same level from slipping, tripping and stumbling with subsequent striking against other object, initial encounter; Z79.899 Other long term (current) drug therapy
CPT/HCPCS: 36415; 70450; 71045; 72125; 80053; 83605; 83735; 84443; 84484; 85025; 93005; 96374; 96375; J1885; J2060; J2270

== ENCOUNTER 2021-07-11 07:48 | Outpatient (CLI) | payer BC | END 2021-07-11 07:49 | disposition home or self-care (01) | LOC: BICRAD 07:48 | PROVIDERS: ATTEND Internal Medicine Critical Care Medicine | DX: R06.00 Dyspnea, unspecified (principal); R91.8 Other nonspecific abnormal finding of lung field | CPT/HCPCS: 71046 ==

== ENCOUNTER 2021-07-17 06:37 | Emergency (ER) | payer BC ==
[2021-07-17] MEDS ORDERED: Morphine 4 MG/ML VIAL ONE (07:08)
[2021-07-17] MEDS ORDERED: Ondansetron PF 4 MG/2 ML Vial ONE (07:08)
[2021-07-17 07:10] LABS: #Lymphocytes 0.8 thou/uL (1.20-3.40); #Monocytes 0.5 thou/uL (0.11-0.59); #Neutrophils 3.1 thou/uL (1.40-6.50); %Basophils 0.7 % (0.0-1.0); %Lymphocytes 18.3 % (21.0-51.0); %Monocytes 10.9 % (0.0-10.0); Hemoglobin 10.7 g/dL (12.0-16.0); Mean Corpuscular HGB CONC 32.3 g/dL (32.0-36.0); Mean Corpuscular Hemoglobin 26.5 pg (27.0-31.0); Mean Corpuscular Volume 82.1 fL (78.0-98.0); Mean Platelet Volume 8.2 fL (7.4-10.4); Platelet Count 225 thou/uL (130-400); RBC Distribution Width 13.3 % (11.5-14.5); Red Blood Cell (RBC) Count 4.04 mill/uL (4.20-5.40); White Blood Cell (WBC) Count 4.5 thou/uL (4.8-10.8)
[2021-07-17] MEDS ORDERED: Lorazepam 2 MG/ML VIAL ONE (07:19)
[2021-07-17 07:35] LABS: ALT (SGPT) 16 U/L (8-55); AST (SGOT) 31 U/L (5-34); Albumin 3.9 g/dL (3.5-5.0); Alkaline Phosphatase 61 U/L (40-110); Anion Gap 12 mmol/L (10-20); BUN (Urea Nitrogen) 13 mg/dL (9.8-20.1); Bilirubin, Total 0.8 mg/dL (0.2-1.2); Calc. Creatinine Clearance 0 mL/min (70-130); Calcium 8.8 mg/dL (7.8-10.44); Carbon Dioxide 29 mmol/L (22-29); Chloride 104 mmol/L (98-107); Globulin 3.7 g/dL (2.4-3.5); Glucose 95 mg/dL (70-105); Potassium 3.7 mmol/L (3.5-5.1); Protein, Total 7.6 g/dL (6.0-8.3); Sodium 141 mmol/L (136-145)
[2021-07-17] MEDS ORDERED: cefTRIAXone\\ROCEPHIN 1 GM VIAL ONE (10:51)
[2021-07-17 11:00] LABS: SARS-CoV-2 NAA Rapid Test Not Detected (NotDetected)
== END 2021-07-17 11:35 | disposition home or self-care (01) ==
LOC: ERS 06:37
DX: J18.9 Pneumonia, unspecified organism (principal); I49.3 Ventricular premature depolarization; I10 Essential (primary) hypertension; M06.9 Rheumatoid arthritis, unspecified; M32.9 Systemic lupus erythematosus, unspecified; M87.89 Other osteonecrosis, multiple sites; G89.4 Chronic pain syndrome; Z20.822 Contact with and (suspected) exposure to COVID-19
CPT/HCPCS: 71045; 71275; 80053; 84484; 85025; 93005; 96374; 96375; J0696; J2060; J2270; J2405; U0002

== ENCOUNTER 2021-07-18 11:03 | Emergency (ER) | payer BC ==
[2021-07-18] MEDS ORDERED: methylPREDNISolone Sod Succ/PF 125 MG/2 ML VIAL ONE (12:41)
[2021-07-18] MEDS ORDERED: Ondansetron PF 4 MG/2 ML Vial ONE (12:44)
[2021-07-18] MEDS ORDERED: Morphine 4 MG/ML VIAL ONE (12:44)
[2021-07-18 14:07] LABS: #Lymphocytes 0.9 thou/uL (1.20-3.40); #Monocytes 0.5 thou/uL (0.11-0.59); #Neutrophils 3.9 thou/uL (1.40-6.50); %Basophils 0.3 % (0.0-1.0); %Eosinophils 0.1 % (0.0-10.0); %Lymphocytes 17.3 % (21.0-51.0); %Monocytes 9.5 % (0.0-10.0); %Neutrophils 72.9 % (42.0-75.0); Hemoglobin 10.2 g/dL (12.0-16.0); Mean Corpuscular HGB CONC 31.1 g/dL (32.0-36.0); Mean Corpuscular Volume 83.4 fL (78.0-98.0); Mean Platelet Volume 8.1 fL (7.4-10.4); Platelet Count 222 thou/uL (130-400); RBC Distribution Width 13.6 % (11.5-14.5); Red Blood Cell (RBC) Count 3.94 mill/uL (4.20-5.40); White Blood Cell (WBC) Count 5.3 thou/uL (4.8-10.8)
[2021-07-18 14:28] LABS: ALT (SGPT) 12 U/L (8-55); AST (SGOT) 22 U/L (5-34); Albumin 3.4 g/dL (3.5-5.0); Alkaline Phosphatase 55 U/L (40-110); Anion Gap 12 mmol/L (10-20); BUN (Urea Nitrogen) 10 mg/dL (9.8-20.1); Bilirubin, Total 0.5 mg/dL (0.2-1.2); Calc. Creatinine Clearance 0 mL/min (70-130); Calcium 8.2 mg/dL (7.8-10.44); Carbon Dioxide 26 mmol/L (22-29); Chloride 106 mmol/L (98-107); Globulin 3.3 g/dL (2.4-3.5); Glucose 92 mg/dL (70-105); Protein, Total 6.7 g/dL (6.0-8.3); Sodium 140 mmol/L (136-145)
== END 2021-07-18 14:58 | disposition home or self-care (01) ==
LOC: ERS 11:03
DX: J18.9 Pneumonia, unspecified organism (principal); D89.9 Disorder involving the immune mechanism, unspecified; I10 Essential (primary) hypertension
CPT/HCPCS: 36415; 71045; 80053; 83880; 84484; 85025; 93005; 96374; 96375; J2270; J2405; J2930

== ENCOUNTER 2021-08-01 08:07 | Outpatient (CLI) | payer BC | END 2021-08-01 08:08 | disposition home or self-care (01) | LOC: BICCT 08:07 | PROVIDERS: ATTEND Internal Medicine Critical Care Medicine | DX: R91.8 Other nonspecific abnormal finding of lung field (principal) | CPT/HCPCS: 71260 ==

== ENCOUNTER 2021-08-01 14:27 | Outpatient (CLI) | payer BC | END 2021-08-01 14:28 | disposition home or self-care (01) | LOC: ULT 14:27 | PROVIDERS: ATTEND Internal Medicine | DX: M79.89 Other specified soft tissue disorders (principal); I80.9 Phlebitis and thrombophlebitis of unspecified site ==

== ENCOUNTER 2022-01-10 09:11 | Outpatient (CLI) | payer BC | END 2022-01-10 09:12 | disposition home or self-care (01) | LOC: ULT 09:11 | PROVIDERS: ATTEND Nurse Practitioner Family | DX: M79.89 Other specified soft tissue disorders (principal); R60.0 Localized edema | CPT/HCPCS: 72170 ==

== ENCOUNTER 2022-02-18 08:33 | Outpatient (CLI) | payer BC | END 2022-02-18 08:34 | disposition home or self-care (01) | LOC: RAD 08:33 | PROVIDERS: ATTEND Internal Medicine Critical Care Medicine | DX: R91.1 Solitary pulmonary nodule (principal) | CPT/HCPCS: 71046 ==

== ENCOUNTER 2022-05-08 11:20 | Outpatient (CLI) | payer BC | END 2022-05-08 11:21 | disposition home or self-care (01) | LOC: BICRAD 11:20 | PROVIDERS: ATTEND Internal Medicine | DX: R10.9 Unspecified abdominal pain (principal) | CPT/HCPCS: 74019 ==

== ENCOUNTER 2022-05-26 10:40 | Outpatient (CLI) | payer BC | END 2022-05-26 10:41 | disposition home or self-care (01) | LOC: BICMAMMO 10:40 | PROVIDERS: ATTEND Internal Medicine | DX: Z12.31 Encounter for screening mammogram for malignant neoplasm of breast (principal); Z80.3 Family history of malignant neoplasm of breast; Z98.890 Other specified postprocedural states | CPT/HCPCS: 77063; 77067 ==

== ENCOUNTER 2022-06-09 13:05 | Outpatient (CLI) | payer BC, OTHER | END 2022-06-09 13:06 | disposition home or self-care (01) | LOC: RAD 13:05 | PROVIDERS: ATTEND Internal Medicine Critical Care Medicine | DX: R06.00 Dyspnea, unspecified (principal); I51.7 Cardiomegaly | CPT/HCPCS: 71046 ==

== ENCOUNTER 2022-06-12 11:00 | Outpatient (CLI) | payer BC | END 2022-06-12 11:01 | disposition home or self-care (01) | LOC: PET 11:00 | PROVIDERS: ATTEND Internal Medicine Hematology & Oncology | DX: R16.2 Hepatomegaly with splenomegaly, not elsewhere classified (principal); R59.0 Localized enlarged lymph nodes; D63.8 Anemia in other chronic diseases classified elsewhere; M32.9 Systemic lupus erythematosus, unspecified; D53.9 Nutritional anemia, unspecified | CPT/HCPCS: 78815; A9552 ==

== ENCOUNTER 2022-08-31 10:36 | Emergency (ER) | payer BC ==
[2022-08-31] MEDS ORDERED: Acetaminophen 325 MG TAB ONE (11:19)
[2022-08-31] MEDS ORDERED: Ketorolac Tromethamine 30 MG/ML VIAL ONE (11:19)
== END 2022-08-31 12:20 | disposition home or self-care (01) ==
LOC: ERS 10:36
DX: S76.011A Strain of muscle, fascia and tendon of right hip, initial encounter (principal); I10 Essential (primary) hypertension; Z79.899 Other long term (current) drug therapy; W19.XXXA Unspecified fall, initial encounter
CPT/HCPCS: 72170; 96372; J1885

== ENCOUNTER 2022-09-24 19:08 | Inpatient (IN) | payer MEDICARE, BC ==
[2022-09-24] MEDS ORDERED: Morphine 4 MG/ML VIAL ONE ×2 (19:23→23:17)
[2022-09-24] MEDS ORDERED: Ketorolac Tromethamine 30 MG/ML VIAL ONE (19:23)
[2022-09-24 20:02] LABS: #Lymphocytes 0.7 thou/uL (1.20-3.40); #Monocytes 1.5 thou/uL (0.11-0.59); #Neutrophils 13.4 thou/uL (1.40-6.50); %Basophils 0.3 % (0.0-1.0); %Eosinophils 0.1 % (0.0-10.0); %Lymphocytes 4.5 % (21.0-51.0); %Monocytes 9.6 % (0.0-10.0); %Neutrophils 85.5 % (42.0-75.0); Hemoglobin 11.4 g/dL (12.0-16.0); Mean Corpuscular HGB CONC 32.3 g/dL (32.0-36.0); Mean Corpuscular Hemoglobin 27.1 pg (27.0-31.0); Mean Corpuscular Volume 83.8 fl (78.0-98.0); Mean Platelet Volume 7.8 fL (7.4-10.4); Platelet Count 332 10x3/uL (130-400); RBC Distribution Width 12.3 % (11.5-14.5); Red Blood Cell (RBC) Count 4.22 mill/uL (4.20-5.40); White Blood Cell (WBC) Count 15.6 10x3/uL (4.8-10.8)
[2022-09-24] MEDS ORDERED: Acetaminophen 500 MG TAB ONE (20:10)
[2022-09-24 20:20] LABS: ALT (SGPT) 12 U/L (8-55); AST (SGOT) 17 U/L (5-34); Albumin 3.2 g/dL (3.5-5.0); Alkaline Phosphatase 57 U/L (40-110); Anion Gap 16 mmol/L (10-20); BUN (Urea Nitrogen) 21 mg/dL (9.8-20.1); Bilirubin, Total 0.5 mg/dL (0.2-1.2); Calc. Creatinine Clearance 0 mL/min (70-130); Calcium 8.6 mg/dL (7.8-10.44); Carbon Dioxide 22 mmol/L (22-29); Chloride 102 mmol/L (98-107); Estimated GFR 60; Globulin 4.7 g/dL (2.4-3.5); Glucose 118 mg/dL (70-105); Potassium 3.9 mmol/L (3.5-5.1); Protein, Total 7.9 g/dL (6.0-8.3); Sodium 136 mmol/L (136-145)
[2022-09-24] MEDS ORDERED: Piperacillin/Tazobactam 3.375 GM VIAL ONE (20:27)
[2022-09-24 20:32] LABS: SARS-CoV-2 NAA Rapid Test Not Detected (NotDetected)
[2022-09-24 21:03] LABS: Bacteria/HPF 2+ HPF (None Seen); Bilirubin Negative (Negative); Blood, Urine 3+ (Negative); Clarity Turbid (Clear); Glucose, Urine (Dipstick) Normal (Negative); Ketone, Urine Negative (Negative); Leukocyte 75 Leu/uL (Negative); Nitrite Negative (Negative); Protein, Urine (Dipstick) 300 mg/dL (Neg-Trace); RBC/HPF Greater than 50 HPF (0-3); Specific Gravity, Urine 1.022 (1.002-1.036); Squamous Epithelial None Seen HPF (0-3); Urobilinogen Normal mg/dL (Less than 2); WBC/HPF 21-50 HPF (0-3); Yeast-Budding 2+ HPF (None Seen)
[2022-09-24] MEDS ORDERED: Vancomycin 1 GM/200 ML (FROZEN) BAG ONE (21:58)
[2022-09-24] MEDS ORDERED: Cyclobenzaprine 10 MG TAB PO PRN (22:16)
[2022-09-24 22:24] VITALS: BMI 19.3
[2022-09-24] MEDS: Morphine 4 MG/ML VIAL SLOW IVP PRN (23:26)
[2022-09-25] MEDS ORDERED: Piperacillin/Tazobactam 3.375 GM VIAL ONE (01:36)
[2022-09-25] MEDS: Piperacillin/Tazobactam 3.375 GM in Sodium Chloride 0.9% 100 ML IVPB SCH ×3 (01:49→18:28)
[2022-09-25] MEDS ORDERED: Morphine 4 MG/ML VIAL ONE (03:46)
[2022-09-25] MEDS: Morphine 4 MG/ML VIAL SLOW IVP PRN ×2 (03:50→20:38)
[2022-09-25 06:56] LABS: #Monocytes 1.4 thou/uL (0.11-0.59); #Neutrophils 9.5 thou/uL (1.40-6.50); %Basophils 0.4 % (0.0-1.0); %Eosinophils 0.2 % (0.0-10.0); %Lymphocytes 8.5 % (21.0-51.0); %Monocytes 11.7 % (0.0-10.0); %Neutrophils 79.3 % (42.0-75.0); Hemoglobin 10.7 g/dL (12.0-16.0); Mean Corpuscular HGB CONC 32.5 g/dL (32.0-36.0); Mean Corpuscular Hemoglobin 27.7 pg (27.0-31.0); Mean Corpuscular Volume 85.3 fl (78.0-98.0); Mean Platelet Volume 7.9 fL (7.4-10.4); Platelet Count 253 10x3/uL (130-400); RBC Distribution Width 12.3 % (11.5-14.5); Red Blood Cell (RBC) Count 3.86 mill/uL (4.20-5.40)
[2022-09-25 07:16] LABS: ALT (SGPT) 10 U/L (8-55); AST (SGOT) 17 U/L (5-34); Albumin 2.3 g/dL (3.5-5.0); Alkaline Phosphatase 47 U/L (40-110); Anion Gap 10 mmol/L (10-20); BUN (Urea Nitrogen) 20 mg/dL (9.8-20.1); Bilirubin, Total 0.6 mg/dL (0.2-1.2); Calc. Creatinine Clearance 58 mL/min (70-130); Calcium 7.8 mg/dL (7.8-10.44); Carbon Dioxide 23 mmol/L (22-29); Chloride 109 mmol/L (98-107); Estimated GFR 70; Globulin 4.1 g/dL (2.4-3.5); Glucose 91 mg/dL (70-105); Potassium 4.3 mmol/L (3.5-5.1); Protein, Total 6.4 g/dL (6.0-8.3); Sodium 138 mmol/L (136-145)
[2022-09-25] MEDS ORDERED: Vancomycin 1 GM in Premix Bag 1 BAG IVPB SCH (09:00)
[2022-09-25] MEDS: Sodium Chloride 0.9% 1,000 ML IV SCH ×2 (10:11→20:53)
[2022-09-25] MEDS: Ondansetron PF 4 MG/2 ML Vial IVP PRN (11:12)
[2022-09-25] MEDS: Ketorolac Tromethamine 30 MG/ML VIAL IVP PRN ×2 (11:12→23:49)
[2022-09-25] MEDS: cloNIDine 0.1 MG TAB PO SCH ×2 (11:52→20:36)
[2022-09-25] MEDS: Losartan 25 MG TAB PO SCH (11:52)
[2022-09-25] MEDS: Amlodipine 10 MG TAB PO SCH (11:53)
[2022-09-25] MEDS: Folic Acid 1 MG TAB PO SCH (11:53)
[2022-09-25] MEDS: Spironolactone 25 MG TAB PO SCH (11:54)
[2022-09-25] MEDS: Pilocarpine 5 MG TAB PO SCH ×3 (11:55→20:36)
[2022-09-25] MEDS: Sertraline 100 MG TAB PO SCH (11:55)
[2022-09-25] MEDS: Vancomycin HCl 750 MG in Sodium Chloride 0.9% 250 ML 250 ML IVPB SCH ×2 (12:16→20:53)
[2022-09-25 14:23] LABS: dsDNA IgG Antibody 1.5 IU/mL (<10 Negative)
[2022-09-25] MEDS: Amitriptyline HCl 10 MG TAB PO SCH (20:36)
[2022-09-26] MEDS: Piperacillin/Tazobactam 3.375 GM in Sodium Chloride 0.9% 100 ML IVPB SCH ×3 (00:03→16:49)
[2022-09-26] MEDS: Morphine 4 MG/ML VIAL SLOW IVP PRN (05:31)
[2022-09-26 07:48] LABS: #Lymphocytes 0.8 thou/uL (1.20-3.40); #Neutrophils 6.6 thou/uL (1.40-6.50); %Basophils 0.5 % (0.0-1.0); %Eosinophils 0.2 % (0.0-10.0); %Lymphocytes 9.5 % (21.0-51.0); %Neutrophils 77.8 % (42.0-75.0); Hemoglobin 10.1 g/dL (12.0-16.0); Mean Corpuscular HGB CONC 32.4 g/dL (32.0-36.0); Mean Corpuscular Hemoglobin 27.8 pg (27.0-31.0); Mean Corpuscular Volume 85.6 fl (78.0-98.0); Platelet Count 277 10x3/uL (130-400); RBC Distribution Width 12.3 % (11.5-14.5); Red Blood Cell (RBC) Count 3.64 mill/uL (4.20-5.40); White Blood Cell (WBC) Count 8.4 10x3/uL (4.8-10.8)
[2022-09-26 08:08] LABS: Anion Gap 11 mmol/L (10-20); BUN (Urea Nitrogen) 22 mg/dL (9.8-20.1); Calc. Creatinine Clearance 51 mL/min (70-130); Calcium 8.1 mg/dL (7.8-10.44); Carbon Dioxide 22 mmol/L (22-29); Chloride 113 mmol/L (98-107); Estimated GFR 60; Glucose 109 mg/dL (70-105); Potassium 3.6 mmol/L (3.5-5.1); Sodium 142 mmol/L (136-145)
[2022-09-26 08:10] LABS: Complement-C4 32.5 mg/dL (15-57)
[2022-09-26 08:20] LABS: Vancomycin, Trough 23.3 ug/mL
[2022-09-26] MEDS: Ondansetron ODT 4 MG TAB PO PRN (08:59)
[2022-09-26] MEDS: Vancomycin HCl 500 MG in Sodium Chloride 0.9% 100 ML IVPB SCH ×2 (09:00→21:07)
[2022-09-26] MEDS: Pilocarpine 5 MG TAB PO SCH ×3 (09:00→21:05)
[2022-09-26] MEDS: Amlodipine 10 MG TAB PO SCH (09:01)
[2022-09-26] MEDS: cloNIDine 0.1 MG TAB PO SCH ×2 (09:01→21:08)
[2022-09-26] MEDS: Folic Acid 1 MG TAB PO SCH (09:03)
[2022-09-26] MEDS: Losartan 25 MG TAB PO SCH (09:03)
[2022-09-26] MEDS: Sertraline 100 MG TAB PO SCH (09:03)
[2022-09-26] MEDS: Spironolactone 25 MG TAB PO SCH (09:03)
[2022-09-26] MEDS: Sodium Chloride 0.9% 1,000 ML IV SCH (16:45)
[2022-09-26] MEDS: Ondansetron PF 4 MG/2 ML Vial IVP PRN (21:07)
[2022-09-26] MEDS: Amitriptyline HCl 10 MG TAB PO SCH (21:08)
[2022-09-27] MEDS: Piperacillin/Tazobactam 3.375 GM in Sodium Chloride 0.9% 100 ML IVPB SCH ×2 (01:03→10:31)
[2022-09-27] MEDS: Morphine 4 MG/ML VIAL SLOW IVP PRN (03:02)
[2022-09-27] MEDS: Sodium Chloride 0.9% 1,000 ML IV SCH ×3 (06:54→19:02)
[2022-09-27 08:13] LABS: #Monocytes 1.1 thou/uL (0.11-0.59); %Basophils 0.5 % (0.0-1.0); %Eosinophils 0.1 % (0.0-10.0); %Lymphocytes 14.2 % (21.0-51.0); %Monocytes 14.9 % (0.0-10.0); %Neutrophils 70.3 % (42.0-75.0); Hemoglobin 9.5 g/dL (12.0-16.0); Mean Corpuscular HGB CONC 32.3 g/dL (32.0-36.0); Mean Corpuscular Hemoglobin 27.7 pg (27.0-31.0); Mean Corpuscular Volume 85.6 fl (78.0-98.0); Mean Platelet Volume 7.8 fL (7.4-10.4); Platelet Count 283 10x3/uL (130-400); RBC Distribution Width 12.4 % (11.5-14.5); Red Blood Cell (RBC) Count 3.42 mill/uL (4.20-5.40)
[2022-09-27] MEDS: Losartan 25 MG TAB PO SCH (08:27)
[2022-09-27] MEDS: Spironolactone 25 MG TAB PO SCH (08:28)
[2022-09-27] MEDS: cloNIDine 0.1 MG TAB PO SCH ×2 (08:28→20:47)
[2022-09-27] MEDS: Amlodipine 10 MG TAB PO SCH (08:28)
[2022-09-27] MEDS: Ondansetron ODT 4 MG TAB PO PRN (08:28)
[2022-09-27] MEDS: Folic Acid 1 MG TAB PO SCH (08:28)
[2022-09-27] MEDS: Sertraline 100 MG TAB PO SCH (08:28)
[2022-09-27] MEDS: Pilocarpine 5 MG TAB PO SCH ×3 (08:29→20:48)
[2022-09-27 08:30] LABS: Anion Gap 12 mmol/L (10-20); BUN (Urea Nitrogen) 23 mg/dL (9.8-20.1); Calc. Creatinine Clearance 43 mL/min (70-130); Calcium 8.1 mg/dL (7.8-10.44); Carbon Dioxide 21 mmol/L (22-29); Chloride 112 mmol/L (98-107); Estimated GFR 48; Glucose 94 mg/dL (70-105); Potassium 4.1 mmol/L (3.5-5.1); Sodium 141 mmol/L (136-145)
[2022-09-27] MEDS: Vancomycin HCl 500 MG in Sodium Chloride 0.9% 100 ML IVPB SCH (08:30)
[2022-09-27 09:36] LABS: CRP (Inflammatory) 9.72 mg/dL (= or < 0.5)
[2022-09-27] MEDS: Amoxicillin/Potassium Clav 875 MG TAB PO SCH (20:47)
[2022-09-27] MEDS: Amitriptyline HCl 10 MG TAB PO SCH (20:47)
[2022-09-27 21:04] LABS: Vancomycin, Trough 22.6 ug/mL
[2022-09-27] MEDS ORDERED: traMADol HCl 50 MG TAB PO SCH (22:00)
[2022-09-28] MEDS: Sodium Chloride 0.9% 1,000 ML IV SCH ×3 (03:33→21:06)
[2022-09-28] MEDS: Acetaminophen 325 MG TAB PO PRN ×3 (04:42→16:35)
[2022-09-28 07:43] LABS: #Neutrophils 5.2 thou/uL (1.40-6.50); %Basophils 0.5 % (0.0-1.0); %Eosinophils 0.1 % (0.0-10.0); %Lymphocytes 13.2 % (21.0-51.0); %Monocytes 13.6 % (0.0-10.0); %Neutrophils 72.4 % (42.0-75.0); Hemoglobin 9.3 g/dL (12.0-16.0); Mean Corpuscular HGB CONC 31.8 g/dL (32.0-36.0); Mean Corpuscular Hemoglobin 27.4 pg (27.0-31.0); Mean Corpuscular Volume 85.9 fl (78.0-98.0); Mean Platelet Volume 7.5 fL (7.4-10.4); Platelet Count 297 10x3/uL (130-400); Red Blood Cell (RBC) Count 3.41 mill/uL (4.20-5.40); White Blood Cell (WBC) Count 7.2 10x3/uL (4.8-10.8)
[2022-09-28 08:06] LABS: ALT (SGPT) 7 U/L (8-55); AST (SGOT) 11 U/L (5-34); Albumin 2.4 g/dL (3.5-5.0); Alkaline Phosphatase 46 U/L (40-110); Anion Gap 10 mmol/L (10-20); BUN (Urea Nitrogen) 21 mg/dL (9.8-20.1); Bilirubin, Total 0.3 mg/dL (0.2-1.2); Calc. Creatinine Clearance 49 mL/min (70-130); Calcium 7.9 mg/dL (7.8-10.44); Carbon Dioxide 21 mmol/L (22-29); Chloride 111 mmol/L (98-107); Estimated GFR 57; Globulin 3.9 g/dL (2.4-3.5); Glucose 93 mg/dL (70-105); Magnesium 1.7 mg/dL (1.6-2.6); Potassium 3.8 mmol/L (3.5-5.1); Protein, Total 6.3 g/dL (6.0-8.3); Sodium 138 mmol/L (136-145)
[2022-09-28] MEDS: Sertraline 100 MG TAB PO SCH (10:48)
[2022-09-28] MEDS: Losartan 25 MG TAB PO SCH (10:52)
[2022-09-28] MEDS: Spironolactone 25 MG TAB PO SCH (10:52)
[2022-09-28] MEDS: predniSONE 20 MG TAB PO SCH (10:52)
[2022-09-28] MEDS: Amoxicillin/Potassium Clav 875 MG TAB PO SCH ×2 (10:52→21:05)
[2022-09-28] MEDS: Folic Acid 1 MG TAB PO SCH (10:56)
[2022-09-28] MEDS: Amlodipine 10 MG TAB PO SCH (10:56)
[2022-09-28] MEDS: Pilocarpine 5 MG TAB PO SCH ×3 (10:57→21:06)
[2022-09-28] MEDS: cloNIDine 0.1 MG TAB PO SCH ×2 (10:57→21:05)
[2022-09-28] MEDS: Ondansetron ODT 4 MG TAB PO PRN (10:59)
[2022-09-28] MEDS: Amitriptyline HCl 10 MG TAB PO SCH (21:06)
[2022-09-29] MEDS: Sodium Chloride 0.9% 1,000 ML IV SCH ×3 (03:07→21:29)
[2022-09-29] MEDS: Acetaminophen 325 MG TAB PO PRN ×2 (03:09→21:33)
[2022-09-29 06:31] LABS: #Lymphocytes 0.8 thou/uL (1.20-3.40); #Neutrophils 5.8 thou/uL (1.40-6.50); %Basophils 0.3 % (0.0-1.0); %Eosinophils 0.2 % (0.0-10.0); %Neutrophils 75.4 % (42.0-75.0); Hemoglobin 9.4 g/dL (12.0-16.0); Mean Corpuscular HGB CONC 32.4 g/dL (32.0-36.0); Mean Corpuscular Hemoglobin 27.5 pg (27.0-31.0); Mean Corpuscular Volume 84.8 fl (78.0-98.0); Mean Platelet Volume 7.7 fL (7.4-10.4); Platelet Count 305 10x3/uL (130-400); Red Blood Cell (RBC) Count 3.42 mill/uL (4.20-5.40); White Blood Cell (WBC) Count 7.7 10x3/uL (4.8-10.8)
[2022-09-29 06:37] LABS: Anion Gap 11 mmol/L (10-20); BUN (Urea Nitrogen) 17 mg/dL (9.8-20.1); Calc. Creatinine Clearance 54 mL/min (70-130); Calcium 7.9 mg/dL (7.8-10.44); Carbon Dioxide 20 mmol/L (22-29); Chloride 112 mmol/L (98-107); Estimated GFR 65; Glucose 96 mg/dL (70-105); Potassium 3.3 mmol/L (3.5-5.1); Sodium 140 mmol/L (136-145)
[2022-09-29] MEDS: Ondansetron PF 4 MG/2 ML Vial IVP PRN (08:05)
[2022-09-29] MEDS: predniSONE 20 MG TAB PO SCH (08:05)
[2022-09-29] MEDS: Folic Acid 1 MG TAB PO SCH (08:09)
[2022-09-29] MEDS: Losartan 25 MG TAB PO SCH (08:09)
[2022-09-29] MEDS: Amoxicillin/Potassium Clav 875 MG TAB PO SCH ×2 (08:10→21:30)
[2022-09-29] MEDS: Pilocarpine 5 MG TAB PO SCH ×3 (08:10→21:30)
[2022-09-29] MEDS: Sertraline 100 MG TAB PO SCH (08:10)
[2022-09-29] MEDS: cloNIDine 0.1 MG TAB PO SCH ×2 (08:10→21:29)
[2022-09-29] MEDS: Spironolactone 25 MG TAB PO SCH (08:10)
[2022-09-29] MEDS: Amlodipine 10 MG TAB PO SCH (08:10)
[2022-09-29] MEDS: Amitriptyline HCl 10 MG TAB PO SCH (21:30)
[2022-09-30] MEDS: Sodium Chloride 0.9% 1,000 ML IV SCH (03:17)
[2022-09-30] MEDS: Acetaminophen 325 MG TAB PO PRN (03:23)
[2022-09-30 05:41] LABS: #Lymphocytes 1.2 thou/uL (1.20-3.40); #Monocytes 1.3 thou/uL (0.11-0.59); %Eosinophils 0.1 % (0.0-10.0); %Lymphocytes 11.7 % (21.0-51.0); %Monocytes 12.1 % (0.0-10.0); Hemoglobin 9.7 g/dL (12.0-16.0); Mean Corpuscular HGB CONC 32.6 g/dL (32.0-36.0); Mean Corpuscular Hemoglobin 27.5 pg (27.0-31.0); Mean Corpuscular Volume 84.2 fl (78.0-98.0); Mean Platelet Volume 7.6 fL (7.4-10.4); Platelet Count 341 10x3/uL (130-400); Red Blood Cell (RBC) Count 3.53 mill/uL (4.20-5.40); White Blood Cell (WBC) Count 10.5 10x3/uL (4.8-10.8)
[2022-09-30 06:01] LABS: Anion Gap 11 mmol/L (10-20); BUN (Urea Nitrogen) 21 mg/dL (9.8-20.1); Calc. Creatinine Clearance 53 mL/min (70-130); Carbon Dioxide 20 mmol/L (22-29); Chloride 113 mmol/L (98-107); Estimated GFR 62; Glucose 101 mg/dL (70-105); Potassium 3.7 mmol/L (3.5-5.1); Sodium 140 mmol/L (136-145)
[2022-09-30] MEDS: Ondansetron PF 4 MG/2 ML Vial IVP PRN (07:51)
[2022-09-30] MEDS: Spironolactone 25 MG TAB PO SCH (07:53)
[2022-09-30] MEDS: Losartan 25 MG TAB PO SCH (07:53)
[2022-09-30] MEDS: Amoxicillin/Potassium Clav 875 MG TAB PO SCH (07:53)
[2022-09-30] MEDS: cloNIDine 0.1 MG TAB PO SCH (07:54)
[2022-09-30] MEDS: Folic Acid 1 MG TAB PO SCH (07:54)
[2022-09-30] MEDS: Amlodipine 10 MG TAB PO SCH (07:54)
[2022-09-30] MEDS: Sertraline 100 MG TAB PO SCH (07:54)
[2022-09-30] MEDS: predniSONE 20 MG TAB PO SCH (07:54)
[2022-09-30] MEDS: Pilocarpine 5 MG TAB PO SCH (07:58)
[2022-09-30 12:25] VITALS: BP 174/78; TEMP 98.9
[2022-10-01] MEDS ORDERED: cloNIDine 0.1mg/24 Hour PATCH TD SCH ×2 (09:00)
== END 2022-09-30 12:32 | disposition home or self-care (01) | DRG 690 ==
LOC: ERS 19:08 → ERHOLD 20:50 → T4-B 09-25 08:20
PROVIDERS: ADMIT Family Medicine; ATTEND Hospitalist
DX: N39.0 Urinary tract infection, site not specified (principal); D68.61 Antiphospholipid syndrome; M32.9 Systemic lupus erythematosus, unspecified; I10 Essential (primary) hypertension; G89.4 Chronic pain syndrome; F41.9 Anxiety disorder, unspecified; K21.9 Gastro-esophageal reflux disease without esophagitis; F32.A Depression, unspecified; M06.9 Rheumatoid arthritis, unspecified; Z79.899 Other long term (current) drug therapy; Z90.710 Acquired absence of both cervix and uterus
CPT/HCPCS: 36415; 51701; 71045; 72192; 80048; 80053; 80202; 81003; 81015; 82550; 83605; 83735; 84145; 84484; 85025; 85652; 86140; 86160; 86225; 87040; 87086; 96365; 96367; 96375; J1650; J1885; J2270; J2405; J2543; J3370; J3370-JW; J3490; J7050; J7512; Q0162

== ENCOUNTER 2022-10-01 00:03 | Emergency (ER) | payer MEDICARE, BC ==
[2022-10-01] MEDS ORDERED: Ketorolac Tromethamine 30 MG/ML VIAL ONE (00:37)
[2022-10-01 00:42] LABS: #Monocytes 1.1 thou/uL (0.11-0.59); #Neutrophils 9.1 thou/uL (1.40-6.50); %Basophils 0.2 % (0.0-1.0); %Eosinophils 0.2 % (0.0-10.0); %Lymphocytes 9.1 % (21.0-51.0); %Monocytes 9.8 % (0.0-10.0); %Neutrophils 80.7 % (42.0-75.0); Hemoglobin 11.6 g/dL (12.0-16.0); Mean Corpuscular HGB CONC 32.8 g/dL (32.0-36.0); Mean Corpuscular Hemoglobin 27.4 pg (27.0-31.0); Mean Corpuscular Volume 83.3 fl (78.0-98.0); Mean Platelet Volume 7.6 fL (7.4-10.4); Platelet Count 426 10x3/uL (130-400); RBC Distribution Width 12.3 % (11.5-14.5); Red Blood Cell (RBC) Count 4.23 mill/uL (4.20-5.40); White Blood Cell (WBC) Count 11.3 10x3/uL (4.8-10.8)
[2022-10-01 01:04] LABS: ALT (SGPT) 9 U/L (8-55); AST (SGOT) 17 U/L (5-34); Albumin 2.8 g/dL (3.5-5.0); Alkaline Phosphatase 59 U/L (40-110); Anion Gap 13 mmol/L (10-20); BUN (Urea Nitrogen) 22 mg/dL (9.8-20.1); Bilirubin, Total 0.2 mg/dL (0.2-1.2); Calc. Creatinine Clearance 0 mL/min (70-130); Calcium 8.4 mg/dL (7.8-10.44); Carbon Dioxide 20 mmol/L (22-29); Chloride 111 mmol/L (98-107); Estimated GFR 52; Globulin 4.8 g/dL (2.4-3.5); Glucose 101 mg/dL (70-105); Potassium 2.8 mmol/L (3.5-5.1); Protein, Total 7.6 g/dL (6.0-8.3); Sodium 141 mmol/L (136-145)
[2022-10-01] MEDS ORDERED: Potassium Chloride 20 MEQ TAB ONE (01:15)
[2022-10-01 03:20] LABS: SARS-CoV-2 NAA Rapid Test DETECTED (NotDetected)
== END 2022-10-01 03:45 | disposition home or self-care (01) ==
LOC: ERS 00:03
DX: U07.1 COVID-19 (principal); I10 Essential (primary) hypertension; Z79.899 Other long term (current) drug therapy
CPT/HCPCS: 0240U; 71045; 72170; 80053; 83605; 83880; 85025; 87081; 87430; 96374; J1885

== ENCOUNTER 2023-04-07 11:50 | Emergency (ER) | payer BC, MEDICARE ==
[2023-04-07 13:33] LABS: #Neutrophils 8.2 thou/uL (1.40-6.50); %Basophils 0.1 % (0.0-1.0); %Lymphocytes 9.8 % (21.0-51.0); %Monocytes 9.8 % (0.0-10.0); %Neutrophils 79.7 % (42.0-75.0); Hematocrit 34.6 % (36.0-47.0); Hemoglobin 11.1 g/dL (12.0-16.0); Mean Corpuscular HGB CONC 32.1 g/dL (32.0-36.0); Mean Corpuscular Hemoglobin 26.4 pg (27.0-31.0); Mean Corpuscular Volume 82.4 fl (78.0-98.0); Mean Platelet Volume 10.1 fL (7.4-10.4); Platelet Count 418 10x3/uL (130-400); RBC Distribution Width 12.1 % (11.5-14.5); White Blood Cell (WBC) Count 10.2 10x3/uL (4.8-10.8)
[2023-04-07 13:58] LABS: ALT (SGPT) Less than 7 U/L (8-55); AST (SGOT) 11 U/L (5-34); Albumin 3.6 g/dL (3.5-5.0); Alkaline Phosphatase 78 U/L (40-110); Anion Gap 15 mmol/L (10-20); BUN (Urea Nitrogen) 27 mg/dL (9.8-20.1); Bilirubin, Total 0.4 mg/dL (0.2-1.2); Calc. Creatinine Clearance 0 mL/min (70-130); Calcium 9.4 mg/dL (7.8-10.44); Carbon Dioxide 24 mmol/L (22-29); Chloride 104 mmol/L (98-107); Estimated GFR 32; Globulin 4.7 g/dL (2.4-3.5); Glucose 94 mg/dL (70-105); Lipase 19 U/L (8-78); Potassium 3.2 mmol/L (3.5-5.1); Protein, Total 8.3 g/dL (6.0-8.3); Sodium 140 mmol/L (136-145)
[2023-04-07 14:40] LABS: Bacteria/HPF 1+ HPF (None Seen); Bilirubin Negative (Negative); Blood, Urine 3+ (Negative); CAUTI Indications for Culture Pelvic or flank pain; Clarity Clear (Clear); Glucose, Urine (Dipstick) Normal (Negative); Ketone, Urine 10 mg/dL (Negative); Leukocyte 75 Leu/uL (Negative); Nitrite Negative (Negative); Protein, Urine (Dipstick) 300 mg/dL (Neg-Trace); Specific Gravity, Urine 1.024 (1.002-1.036); Squamous Epithelial 0-3 HPF (0-3); Urobilinogen Normal mg/dL (Less than 2); WBC/HPF 21-50 HPF (0-3)
[2023-04-07 14:42] LABS: Urine Culture Reflex Yes Yes
[2023-04-07] MEDS ORDERED: Potassium Chloride 20 MEQ TAB ONE (14:49)
[2023-04-07] MEDS ORDERED: cefTRIAXone (ROCEPHIN) 2 GM VIAL ONE (16:39)
== END 2023-04-07 18:30 | disposition home or self-care (01) ==
LOC: ERS 11:50
DX: N12 Tubulo-interstitial nephritis, not specified as acute or chronic (principal); E87.6 Hypokalemia; I12.9 Hypertensive chronic kidney disease with stage 1 through stage 4 chronic kidney disease, or unspecified chronic kidney disease; N18.9 Chronic kidney disease, unspecified; N17.9 Acute kidney failure, unspecified
CPT/HCPCS: 36415; 80053; 81001; 83605; 83690; 85025; 87040; 87086; 96361; 96365; J0696

== ENCOUNTER 2023-07-03 09:00 | Emergency (ER) | payer MEDICARE, BC ==
[2023-07-03] MEDS ORDERED: Albuterol 200 PUFF (6.7GM INHALER) ONE (09:39)
[2023-07-03 09:55] LABS: SARS-CoV-2 NAA Rapid Test Not Detected (NotDetected)
== END 2023-07-03 11:08 | disposition home or self-care (01) ==
LOC: ERS 09:00
DX: H10.32 Unspecified acute conjunctivitis, left eye (principal); B34.9 Viral infection, unspecified; I10 Essential (primary) hypertension
CPT/HCPCS: 0240U; 71045; 93005; 99284

== ENCOUNTER 2023-08-13 08:17 | Day surgery (SDC) | payer BC ==
[2023-08-13 08:30] LABS: #Monocytes 0.5 thou/uL (0.11-0.59); #Neutrophils 5.6 thou/uL (1.40-6.50); %Basophils 0.1 % (0.0-1.0); %Lymphocytes 11.8 % (21.0-51.0); %Monocytes 6.8 % (0.0-10.0); %Neutrophils 80.4 % (42.0-75.0); Hematocrit 39.5 % (36.0-47.0); Hemoglobin 12.5 g/dL (12.0-16.0); Mean Corpuscular HGB CONC 31.6 g/dL (32.0-36.0); Mean Corpuscular Hemoglobin 26.8 pg (27.0-31.0); Mean Corpuscular Volume 84.8 fl (78.0-98.0); Mean Platelet Volume 9.9 fL (7.4-10.4); Platelet Count 377 10x3/uL (130-400); RBC Distribution Width 14.8 % (11.5-14.5); Red Blood Cell (RBC) Count 4.66 mill/uL (4.20-5.40); White Blood Cell (WBC) Count 6.9 10x3/uL (4.8-10.8)
[2023-08-13 08:45] LABS: INR-International Normal Ratio 1.1; PTT 26.6 sec (22.9-36.1); Prothrombin Time 14.4 sec (12.0-14.7)
[2023-08-13] MEDS ORDERED: fentaNYL 50 mcg/mL 1 mL Vial ONE (10:10)
[2023-08-13] MEDS ORDERED: Midazolam HCl 2 mg/2 ml Vial ONE (10:10)
[2023-08-13] MEDS ORDERED: Lidocaine 1% PF 5 ML VIAL ONE (10:11)
[2023-08-13] MEDS ORDERED: Lidocaine 1% w/Epinephrine 1:100K 20 ML VIAL ONE (10:11)
[2023-08-13] MEDS ORDERED: Sodium Bicarbonate 2.5 MEQ/5 ML SDV ONE (10:11)
[2023-08-13] MEDS ORDERED: Metoprolol Tartrate 5 MG (5 mL) VIAL ONE (11:49)
[2023-08-13] MEDS ORDERED: HYDROcodone/Acetaminophen 5/325 mg Tablet ONE (14:08)
== END 2023-08-13 15:00 | disposition home or self-care (01) ==
LOC: CT 08:17
PROVIDERS: ATTEND Internal Medicine Nephrology
PROC: 0TB13ZX Excision of Left Kidney, Percutaneous Approach, Diagnostic (ICD-10-PCS; principal; 2023-08-13)
DX: N18.9 Chronic kidney disease, unspecified (principal); M32.14 Glomerular disease in systemic lupus erythematosus
CPT/HCPCS: 36415; 50200; 77012; 85025; 85610; 85730; 88329; J2250; J3010

== ENCOUNTER 2025-02-02 08:09 | Outpatient (CLI) | payer BC | END 2025-02-02 08:10 | disposition home or self-care (01) | LOC: BICMAMMO 08:09 | PROVIDERS: ATTEND Internal Medicine Rheumatology | DX: Z12.31 Encounter for screening mammogram for malignant neoplasm of breast (principal); M81.0 Age-related osteoporosis without current pathological fracture; Z80.3 Family history of malignant neoplasm of breast | CPT/HCPCS: 77063; 77067; 77080 ==

== ENCOUNTER 2025-06-10 17:02 | Emergency (ER) | payer BC ==
[~2025-06-10 17:02] MED LIST changes: -ISOVUE-370 76%-LOCM 1 ML ONE; +Iopamidol-370 76% 500 ML MDV (1 ML CHARGE) ONE
[2025-06-10] MEDS ORDERED: Acetaminophen 500 MG TAB ONE (18:41)
[2025-06-10 19:51] LABS: #Basophils Less than 0.03 10x3/uL (0.0-0.2); #Eosinophils 0.13 10x3/uL (0.0-0.7); #Monocytes 0.69 10x3/uL (0.11-0.59); #Neutrophils 4.10 10x3/uL (1.40-6.50); %Basophils 0.4 % (0.0-1.0); %Eosinophils 2.3 % (0.0-10.0); %Lymphocytes 11.4 % (21.0-51.0); %Monocytes 12.3 % (0.0-10.0); %Neutrophils 72.9 % (42.0-75.0); Hematocrit 32.0 % (36.0-47.0); Hemoglobin 10.1 g/dL (12.0-16.0); Mean Corpuscular Hemoglobin 25.8 pg (27.0-31.0); Mean Corpuscular Volume 81.6 fL (78.0-98.0); Platelet Count 277 10x3/uL (130-400); Red Blood Cell (RBC) Count 3.92 mill/uL (4.20-5.40); White Blood Cell (WBC) Count 5.62 10x3/uL (4.8-10.8)
[2025-06-10 20:09] LABS: ALT (SGPT) Less than 7 U/L (Less than 34); AST (SGOT) 24 U/L (11-34); Albumin 3.7 g/dL (3.1-4.5); Alkaline Phosphatase 53 U/L (40-110); Anion Gap 14 mmol/L (10-20); BUN (Urea Nitrogen) 38 mg/dL (9.8-20.1); Bilirubin, Total 0.5 mg/dL (0.3-1.2); Calc. Creatinine Clearance 0 mL/min (70-130); Calcium 8.5 mg/dL (7.8-10.44); Carbon Dioxide 23 mmol/L (22-29); Chloride 104 mmol/L (98-107); Globulin 2.8 g/dL (2.4-3.5); Glucose 97 mg/dL (70-105); Potassium 4.1 mmol/L (3.5-5.1); Sodium 137 mmol/L (136-145)
[2025-06-10] MEDS ORDERED: cefTRIAXone (ROCEPHIN) 1 GM VIAL ONE (22:52)
== END 2025-06-10 23:17 | disposition home or self-care (01) ==
LOC: ERS 17:02
DX: J18.0 Bronchopneumonia, unspecified organism (principal); I12.0 Hypertensive chronic kidney disease with stage 5 chronic kidney disease or end stage renal disease; N18.6 End stage renal disease
CPT/HCPCS: 36415; 71046; 71275; 80053; 84484; 85025; 87428; 93005; 96365; J0696; Q9967

== ENCOUNTER 2025-07-04 10:04 | Outpatient (CLI) | payer BC | END 2025-07-04 10:05 | disposition home or self-care (01) | LOC: RAD 10:04 | PROVIDERS: ATTEND Internal Medicine Critical Care Medicine | DX: R06.00 Dyspnea, unspecified (principal); R91.1 Solitary pulmonary nodule | CPT/HCPCS: 71046 ==